=== PATIENT | male | born 1980 | race Caucasian/White ===

== ENCOUNTER 2017-12-17 20:22 | Emergency (ER) | payer OTHER ==
[2017-12-17 22:06] LABS: BASO # 0.1 10^3/uL (0.0-0.2); BASO % 0.5 % (0.0-1.0); EOS # 0.2 10^3/uL (0.0-0.50); EOS % 2.2 % (0.0-3.0); HEMATOCRIT 46.4 % (42.0-52.0); HEMOGLOBIN 15.5 g/dl (13.5-17.5); IMMATURE GRANULOCYTE % 0.3 % (0-3.0); LYMPH # 1.9 10^3/uL (1.5-4.5); MEAN CORPUSCULAR HGB CONC 33.4 g/dl (32.0-36.5); MEAN CORPUSCULAR VOLUME 95.7 fl (80.0-96.0); MONO # 0.8 10^3/uL (0.0-0.8); MONO % 8.3 % (0.0-5.0); NEUTROPHILS # 6.4 10^3/uL (1.8-7.7); NEUTROPHILS % 68.7 % (36.0-66.0); PLATELET COUNT, AUTOMATED 386 10^3/uL (150-450); RED BLOOD COUNT 4.85 10^6/uL (4.30-6.10); RED CELL DISTRIBUTION WIDTH 12.8 % (11.5-14.5); WHITE BLOOD COUNT 9.3 10^3/uL (4.0-10.0)
[2017-12-17] MEDS: ONDANSETRON 4MG/2ML VIAL (J2405) IV (22:11)
[2017-12-17] MEDS: NS 1,000 ML IV (22:11)
[2017-12-17] MEDS: MECLIZINE 25 MG TABLET PO (22:11)
[2017-12-17 22:27] LABS: ERYTHROCYTE SEDIMENTATION RATE 8 mm/hr (0-15)
[2017-12-17 22:29] LABS: ALBUMIN 3.8 GM/DL (3.2-5.2); ALBUMIN/GLOBULIN RATIO 0.79 (1.00-1.93); ALKALINE PHOSPHATASE 114 U/L (45-117); ALT/SGPT 35 U/L (12-78); ANION GAP 8 MEQ/L (8-16); AST/SGOT 16 U/L (7-37); BILIRUBIN,DIRECT 0.1 MG/DL (0.0-0.2); BILIRUBIN,TOTAL 0.4 MG/DL (0.2-1.0); BLOOD UREA NITROGEN 11 MG/DL (7-18); C REACTIVE PROTEIN QUANTITATIV 1.38 MG/DL (0.00-0.30); CALCIUM LEVEL 8.8 MG/DL (8.5-10.1); CARBON DIOXIDE LEVEL 28 MEQ/L (21-32); CHLORIDE LEVEL 104 MEQ/L (98-107); CREATININE FOR GFR 1.17 MG/DL (0.70-1.30); GLOMERULAR FILTRATION RATE > 60.0 (>60); GLUCOSE, FASTING 96 MG/DL (70-100); POTASSIUM SERUM 3.8 MEQ/L (3.5-5.1); SODIUM LEVEL 140 MEQ/L (136-145); TOTAL PROTEIN 8.6 GM/DL (6.4-8.2)
[2017-12-17] MEDS: AUGMENTIN 875 MG TAB PO (23:03)
[2017-12-17] MEDS: ACETAMINOPHEN 325 MG TAB PO (23:03)
== END 2017-12-17 23:27 | disposition home or self-care (01) ==
LOC: M ED 20:22
DX: H66.92 Otitis media, unspecified, left ear (principal); R42 Dizziness and giddiness; R51 Headache; G43.909 Migraine, unspecified, not intractable, without status migrainosus; K21.9 Gastro-esophageal reflux disease without esophagitis; Z72.0 Tobacco use; Z79.899 Other long term (current) drug therapy
CPT/HCPCS: J2405

== ENCOUNTER → 2018-03-27 | Outpatient (REF) | payer OTHER ==
[~2018-03-27] MED LIST: AUGM875T28 PO; MECL-68 PO; OMEP40CA2 PO; ZOFR4TAB14 PO
[2018-03-27 13:29] LABS: INFLUENZA A AMPLIFICATION POSITIVE (NEGATIVE); INFLUENZA B AMPLIFICATION NEGATIVE (NEGATIVE)
== END ==
LOC: M LAB REF 12:23
PROVIDERS: ATTEND Physician Assistant
DX: R68.89 Other general symptoms and signs (principal)

== ENCOUNTER → 2018-08-13 | Outpatient (REF) | payer OTHER ==
[2018-08-13 18:56] LABS: BASO % 0.5 % (0.0-1.0); EOS # 0.1 10^3/uL (0.0-0.50); EOS % 1.6 % (0.0-3.0); HEMATOCRIT 44.7 % (42.0-52.0); LYMPH # 1.7 10^3/uL (1.5-4.5); LYMPH % 27.2 % (24.0-44.0); MEAN CORPUSCULAR HEMOGLOBIN 32.2 pg (27.0-33.0); MEAN CORPUSCULAR HGB CONC 33.6 g/dl (32.0-36.5); MEAN CORPUSCULAR VOLUME 95.9 fl (80.0-96.0); MONO # 0.4 10^3/uL (0.0-0.8); NEUTROPHILS # 3.9 10^3/uL (1.8-7.7); NEUTROPHILS % 63.4 % (36.0-66.0); PLATELET COUNT, AUTOMATED 362 10^3/uL (150-450); RED BLOOD COUNT 4.66 10^6/uL (4.30-6.10); WHITE BLOOD COUNT 6.1 10^3/uL (4.0-10.0)
[2018-08-13 19:07] LABS: ALBUMIN 3.8 GM/DL (3.2-5.2); ALT/SGPT 28 U/L (12-78); BILIRUBIN,TOTAL 0.5 MG/DL (0.2-1.0); BLOOD UREA NITROGEN 12 MG/DL (7-18); CARBON DIOXIDE LEVEL 27 MEQ/L (21-32); CHLORIDE LEVEL 105 MEQ/L (98-107); CHOLESTEROL LEVEL 216 MG/DL (<200); CHOLESTEROL RISK RATIO 4.153 (<5); GLOMERULAR FILTRATION RATE > 60.0 (>60); GLUCOSE, FASTING 97 MG/DL (70-100); HDL CHOLESTEROL 52 MG/DL (>40); LDL CHOLESTEROL 142 MG/DL (<100); NON-HDL-C 164 MG/DL; POTASSIUM SERUM 4.2 MEQ/L (3.5-5.1); SODIUM LEVEL 138 MEQ/L (136-145); TRIGLYCERIDES LEVEL 109 MG/DL (<150)
== END ==
LOC: M LAB REF 17:01
PROVIDERS: ATTEND Family Medicine Addiction Medicine
DX: R42 Dizziness and giddiness (principal); F41.1 Generalized anxiety disorder; N48.1 Balanitis

== ENCOUNTER 2018-09-14 03:35 | Emergency (ER) | payer OTHER ==
[~2018-09-14] VITALS: Ht 170.2 cm; Wt 115.5 kg
[2018-09-14 03:35] VITALS: BP 132/85
[~2018-09-14 03:35] MED LIST changes: -MECL-68 PO; +MECL1TAB31 PO; -OMEP40CA2 PO; +OMEP40CA97 PO
[2018-09-14] MEDS ORDERED: OMEP-221 (03:49)
[2018-09-14] MEDS ORDERED: FLUORESCEIN OPHTH 1 MG STRIP OU ONE (04:45)
[2018-09-14] MEDS ORDERED: TETRACAINE 0.5% OPHTH SOLN 4ML OU ONE (04:45)
[2018-09-14] MEDS ORDERED: ERYT1OIN26 OD (05:07)
[2018-09-14] MEDS ORDERED: ERYTHROMYCIN OPHTH OINT OD ONE (05:15)
== END 2018-09-14 05:20 | disposition home or self-care (01) ==
LOC: M ED 03:35
DX: S05.01XA Injury of conjunctiva and corneal abrasion without foreign body, right eye, initial encounter (principal); X58.XXXA Exposure to other specified factors, initial encounter; Y92.89 Other specified places as the place of occurrence of the external cause; Z79.899 Other long term (current) drug therapy; Z88.8 Allergy status to other drugs, medicaments and biological substances; F17.210 Nicotine dependence, cigarettes, uncomplicated

== ENCOUNTER → 2018-11-13 | Outpatient (REF) | payer OTHER ==
[~2018-11-13] MED LIST changes: +ERYT1OIN26 OD; +MECL-68 PO; -MECL1TAB31 PO; +OMEP-221; +OMEP40CA2 PO; -OMEP40CA97 PO
[2018-11-13 21:51] LABS: BASO % 0.5 % (0.0-1.0); EOS # 0.1 10^3/uL (0.0-0.5); EOS % 1.2 % (0.0-3.0); HEMATOCRIT 46.4 % (42.0-52.0); HEMOGLOBIN 15.4 g/dl (13.5-17.5); LYMPH # 1.5 10^3/uL (1.5-5.0); LYMPH % 17.9 % (24.0-44.0); MEAN CORPUSCULAR HGB CONC 33.2 g/dl (32.0-36.5); MEAN CORPUSCULAR VOLUME 99.6 fl (80.0-96.0); MONO # 0.5 10^3/uL (0.0-0.8); MONO % 6.7 % (0.0-5.0); NEUTROPHILS # 5.9 10^3/uL (1.5-8.5); NEUTROPHILS % 73.3 % (36.0-66.0); PLATELET COUNT, AUTOMATED 363 10^3/uL (150-450); RED BLOOD COUNT 4.66 10^6/uL (4.30-6.10); WHITE BLOOD COUNT 8.1 10^3/uL (4.0-10.0)
[2018-11-13 22:13] LABS: HEMOGLOBIN A1c 4.8 %
[2018-11-13 22:19] LABS: ALBUMIN 3.9 GM/DL (3.2-5.2); ALT/SGPT 34 U/L (12-78); BILIRUBIN,TOTAL 0.3 MG/DL (0.2-1.0); BLOOD UREA NITROGEN 14 MG/DL (7-18); CALCIUM LEVEL 8.9 MG/DL (8.5-10.1); CARBON DIOXIDE LEVEL 25 MEQ/L (21-32); CHLORIDE LEVEL 103 MEQ/L (98-107); CREATININE FOR GFR 1.11 MG/DL (0.70-1.30); GLOMERULAR FILTRATION RATE > 60.0 (>60); GLUCOSE, FASTING 128 MG/DL (70-100); POTASSIUM SERUM 3.6 MEQ/L (3.5-5.1); SODIUM LEVEL 138 MEQ/L (136-145); TOTAL PROTEIN 7.9 GM/DL (6.4-8.2)
== END ==
LOC: M LAB REF 13:37
PROVIDERS: ATTEND Physician Assistant
DX: R30.0 Dysuria (principal); R53.1 Weakness; R42 Dizziness and giddiness

== ENCOUNTER → 2018-11-25 | Outpatient (REF) | payer OTHER ==
[~2018-11-25] MED LIST changes: -MECL-68 PO; +MECL1TAB31 PO; -OMEP40CA2 PO; +OMEP40CA97 PO
[2018-11-25 13:39] LABS: BASO # 0.1 10^3/uL (0.0-0.2); BASO % 0.7 % (0.0-1.0); EOS # 0.3 10^3/uL (0.0-0.5); EOS % 3.3 % (0.0-3.0); HEMATOCRIT 46.2 % (42.0-52.0); HEMOGLOBIN 15.5 g/dl (13.5-17.5); LYMPH % 26.6 % (24.0-44.0); MEAN CORPUSCULAR HEMOGLOBIN 32.7 pg (27.0-33.0); MEAN CORPUSCULAR HGB CONC 33.5 g/dl (32.0-36.5); MEAN CORPUSCULAR VOLUME 97.5 fl (80.0-96.0); MONO # 0.6 10^3/uL (0.0-0.8); MONO % 8.1 % (0.0-5.0); NEUTROPHILS # 4.7 10^3/uL (1.5-8.5); PLATELET COUNT, AUTOMATED 391 10^3/uL (150-450); RED BLOOD COUNT 4.74 10^6/uL (4.30-6.10); WHITE BLOOD COUNT 7.6 10^3/uL (4.0-10.0)
[2018-11-25 14:06] LABS: HEMOGLOBIN A1c 5.1 %
[2018-11-25 14:13] LABS: ALBUMIN 3.7 GM/DL (3.2-5.2); ALT/SGPT 35 U/L (12-78); BILIRUBIN,TOTAL 0.5 MG/DL (0.2-1.0); BLOOD UREA NITROGEN 13 MG/DL (7-18); CALCIUM LEVEL 8.9 MG/DL (8.5-10.1); CARBON DIOXIDE LEVEL 25 MEQ/L (21-32); CHLORIDE LEVEL 104 MEQ/L (98-107); CHOLESTEROL LEVEL 192 MG/DL (<200); CHOLESTEROL RISK RATIO 4.173 (<5); CREATININE FOR GFR 1.09 MG/DL (0.70-1.30); FREE T4 1.09 NG/DL (0.76-1.46); GLOMERULAR FILTRATION RATE > 60.0 (>60); GLUCOSE, FASTING 91 MG/DL (70-100); HDL CHOLESTEROL 46 MG/DL (>40); LDL CHOLESTEROL 120 MG/DL (<100); NON-HDL-C 146 MG/DL; POTASSIUM SERUM 3.8 MEQ/L (3.5-5.1); SODIUM LEVEL 139 MEQ/L (136-145); TOTAL 25(OH) VITAMIN D 13.1 NG/ML (30.0-100.0); TOTAL PROTEIN 7.5 GM/DL (6.4-8.2); TRIGLYCERIDES LEVEL 132 MG/DL (<150)
== END ==
LOC: M LAB REF 11:56
PROVIDERS: ATTEND Family Medicine
DX: Z13.228 Encounter for screening for other metabolic disorders (principal); E78.5 Hyperlipidemia, unspecified

== ENCOUNTER → 2019-01-10 | Outpatient (REF) | payer OTHER ==
[~2019-01-10] MED LIST changes: +MECL-68 PO; -MECL1TAB31 PO
[2019-01-10 17:17] LABS: ALBUMIN 3.6 GM/DL (3.2-5.2); ALT/SGPT 34 U/L (12-78); BILIRUBIN,TOTAL 0.5 MG/DL (0.2-1.0); BLOOD UREA NITROGEN 12 MG/DL (7-18); CALCIUM LEVEL 8.7 MG/DL (8.5-10.1); CARBON DIOXIDE LEVEL 27 MEQ/L (21-32); CHLORIDE LEVEL 104 MEQ/L (98-107); CHOLESTEROL LEVEL 218 MG/DL (<200); CHOLESTEROL RISK RATIO 4.113 (<5); CREATININE FOR GFR 1.14 MG/DL (0.70-1.30); FREE T4 1.07 NG/DL (0.76-1.46); GLOMERULAR FILTRATION RATE > 60.0 (>60); GLUCOSE, FASTING 133 MG/DL (70-100); HDL CHOLESTEROL 53 MG/DL (>40); LDL CHOLESTEROL 144 MG/DL (<100); NON-HDL-C 165 MG/DL; POTASSIUM SERUM 4.2 MEQ/L (3.5-5.1); SODIUM LEVEL 138 MEQ/L (136-145); TOTAL PROTEIN 7.5 GM/DL (6.4-8.2); TRIGLYCERIDES LEVEL 105 MG/DL (<150)
== END ==
LOC: M LAB REF 16:19
PROVIDERS: ATTEND Family Medicine
DX: E78.5 Hyperlipidemia, unspecified (principal); E03.8 Other specified hypothyroidism

== ENCOUNTER 2019-09-08 17:45 | Emergency (ER) | payer OTHER ==
[~2019-09-08] VITALS: Ht 170.2 cm; Wt 118.2 kg
[~2019-09-08 17:45] MED LIST changes: -ERYT1OIN26 OD; +ERYT5OIN25 OD; -MECL-68 PO; +MECL1TAB31 PO
[2019-09-08] MEDS ORDERED: LEVO50TA5 PO (18:13)
[2019-09-08 18:52] LABS: BASO % 0.4 % (0.0-1.0); EOS # 0.1 10^3/uL (0.0-0.5); EOS % 0.5 % (0.0-3.0); HEMATOCRIT 45.5 % (42.0-52.0); LYMPH # 0.9 10^3/uL (1.5-5.0); LYMPH % 8.5 % (24.0-44.0); MEAN CORPUSCULAR HEMOGLOBIN 31.9 pg (27.0-33.0); MEAN CORPUSCULAR VOLUME 96.8 fl (80.0-96.0); MONO # 0.8 10^3/uL (0.0-0.8); MONO % 7.5 % (0.0-5.0); NEUTROPHILS % 82.5 % (36.0-66.0); PLATELET COUNT, AUTOMATED 339 10^3/uL (150-450); WHITE BLOOD COUNT 10.9 10^3/uL (4.0-10.0)
--- NOTE | 2019-09-08 18:54 | REP ---
Portable chest x-ray: Single view. History: Chest pain. Findings: There is a small linear density in the left base consistent with plate-like atelectasis. Lung caba are otherwise clear. The pleural angles are sharp. Cardio mediastinal silhouette is unremarkable. Monitoring electrodes are seen. No bony abnormalities seen. Impression: Small zone linear plate-like atelectasis in the left base. Otherwise no active disease. Electronically Signed by Frandy Donovan MD 09/08/2019 06:46 P
[2019-09-08 19:02] LABS: INR 1.07; PROTHROMBIN TIME 13.6 SECONDS (11.8-14.0)
[2019-09-08 19:03] LABS: PARTIAL THROMBOPLASTIN TIME 27.4 SECONDS (25.0-38.4)
[2019-09-08 19:21] LABS: ALBUMIN 3.9 GM/DL (3.2-5.2); ALT/SGPT 59 U/L (12-78); BILIRUBIN,DIRECT 0.1 MG/DL (0.0-0.2); BILIRUBIN,TOTAL 0.3 MG/DL (0.2-1.0); BLOOD UREA NITROGEN 9 MG/DL (7-18); CALCIUM LEVEL 9.1 MG/DL (8.5-10.1); CARBON DIOXIDE LEVEL 29 MEQ/L (21-32); CHLORIDE LEVEL 105 MEQ/L (98-107); CREATININE FOR GFR 1.11 MG/DL (0.70-1.30); FREE T4 1.17 NG/DL (0.76-1.46); GLOMERULAR FILTRATION RATE > 60.0 (>60); GLUCOSE, FASTING 87 MG/DL (70-100); LIPASE 52 U/L (73-393); NT-PRO BNP 19 PG/ML (<125); POTASSIUM SERUM 4.2 MEQ/L (3.5-5.1); SODIUM LEVEL 137 MEQ/L (136-145); TOTAL PROTEIN 8.1 GM/DL (6.4-8.2)
[2019-09-08 19:30] LABS: D-DIMER QUANT < 270 ng/ml (<500)
[2019-09-08] MEDS ORDERED: GI COCKTAIL 50ML BTL(HYOSCYAMINE/MAALOX/LIDOCAINE VISCOUS)(1:3:1) PO ONE (21:15)
[2019-09-08] MEDS ORDERED: HEPARIN DRIP 25,000 UNITS in IV 1 EA IV SCH (22:38)
[2019-09-08] MEDS ORDERED: HEPARIN SOD (PORCINE) 5000UNITS/ML 1ML VIAL/SYRINGE IV ONE (22:45)
[2019-09-08] MEDS ORDERED: NITROGLYCERIN 0.4 MG SUBL TABLET SL PRN (22:45)
[2019-09-08] MEDS ORDERED: CLOPIDOGREL 300 MG TAB (PLAVIX) PO ONE (23:00)
[2019-09-08 23:34] LABS: CK-MB VALUE MASS < 1.0 NG/ML (<3.6); CPK CREATINE PHOSPHOKINASE 121 U/L (39-308); MB/CK RELATIVE INDEX 0.83 (< OR =4); TROPONIN I < 0.02 NG/ML (< 0.10)
[2019-09-09] MEDS ORDERED: METOPROLOL TART 25 MG TABLET PO ONE (00:15)
[2019-09-09 00:20] VITALS: BP 146/68
[2019-09-09 01:00] VITALS: BP 127/80
--- NOTE | 2019-09-09 07:57 | ECGEPIP ---
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
--- NOTE | 2019-09-09 08:00 | ECGEPIP ---
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
== END 2019-09-09 01:12 | disposition short-term general hospital (02) ==
LOC: M ED 17:45
DX: I21.4 Non-ST elevation (NSTEMI) myocardial infarction (principal); R94.31 Abnormal electrocardiogram [ECG] [EKG]; K21.9 Gastro-esophageal reflux disease without esophagitis; Z79.899 Other long term (current) drug therapy
CPT/HCPCS: 71045; 80048; 80076; 82550; 82553; 83690; 83880; 84439; 84443; 85025; 85379; 85610; 85730; 93005; 93041; 94760; 96365; 99285; J1644; U0002

== ENCOUNTER → 2019-09-22 | Outpatient (REF) | payer OTHER, MEDICAID ==
[~2019-09-22] MED LIST changes: +LEVO50TA5 PO
[2019-10-19 20:25] LABS: BASO % 0.6 % (0.0-1.0); EOS # 0.2 10^3/uL (0.0-0.5); EOS % 2.6 % (0.0-3.0); LYMPH % 30.5 % (24.0-44.0); MEAN CORPUSCULAR HEMOGLOBIN 31.6 pg (27.0-33.0); MEAN CORPUSCULAR HGB CONC 31.9 g/dl (32.0-36.5); MEAN CORPUSCULAR VOLUME 98.9 fl (80.0-96.0); MONO # 0.7 10^3/uL (0.0-0.8); MONO % 10.2 % (0.0-5.0); NEUTROPHILS # 3.7 10^3/uL (1.5-8.5); NEUTROPHILS % 55.8 % (36.0-66.0); PLATELET COUNT, AUTOMATED 393 10^3/uL (150-450); RED BLOOD COUNT 4.75 10^6/uL (4.30-6.10); WHITE BLOOD COUNT 6.6 10^3/uL (4.0-10.0)
[2019-11-01 21:42] LABS: ALBUMIN 3.8 GM/DL (3.2-5.2); ALT/SGPT 50 U/L (12-78); BILIRUBIN,TOTAL 0.5 MG/DL (0.2-1.0); BLOOD UREA NITROGEN 12 MG/DL (7-18); CALCIUM LEVEL 9.2 MG/DL (8.5-10.1); CARBON DIOXIDE LEVEL 30 MEQ/L (21-32); CHLORIDE LEVEL 106 MEQ/L (98-107); CREATININE FOR GFR 1.06 MG/DL (0.70-1.30); GLOMERULAR FILTRATION RATE > 60.0 (>60); GLUCOSE, FASTING 95 MG/DL (70-100); POTASSIUM SERUM 4.2 MEQ/L (3.5-5.1); SODIUM LEVEL 140 MEQ/L (136-145); TOTAL 25(OH) VITAMIN D 15.4 NG/ML (30.0-100.0); TOTAL PROTEIN 7.6 GM/DL (6.4-8.2)
== END ==
LOC: M LAB REF 08:55
PROVIDERS: ATTEND Physician Assistant
DX: J30.9 Allergic rhinitis, unspecified (principal); E03.8 Other specified hypothyroidism; E55.9 Vitamin D deficiency, unspecified; E78.5 Hyperlipidemia, unspecified

== ENCOUNTER 2020-02-26 21:25 | Emergency (ER) | payer MEDICAID, OTHER ==
[~2020-02-26] VITALS: Ht 170.2 cm; Wt 113.3 kg
[2020-02-26] MEDS ORDERED: ACETAMINOPHEN 325 MG TAB PO ONE (22:45)
--- NOTE | 2020-02-26 23:06 | REPVR ---
PROCEDURE INFORMATION: Exam: XR Chest, 1 View Exam date and time: 02/26/2020 10:34 PM Age: 39 years old Clinical indication: Cough; Additional info: Coronavirus workup TECHNIQUE: Imaging protocol: XR of the chest Views: 1 view. COMPARISON: ME PORTABLE CHEST X-RAY 09/08/2019 6:33 PM FINDINGS: Lungs: There is decreased inflation of the lungs. Mild bibasilar atelectasis and possible infiltrate which is slightly increased since the prior study. There is decreased delineation of the left hemidiaphragm. Pleural space: Question of minimal left pleural effusion. Heart/Mediastinum: The heart and mediastinum are unchanged. Bones/joints: Unremarkable. Soft tissues: There are moderately generous overlying soft tissues. IMPRESSION: 1. Poor inspiratory chest with mild bibasilar atelectasis and possible infiltrate which appears slightly increased since 09/08/2019. 2. Question of minimal left pleural effusion since the prior study. Electronically signed by: Gigi Lopez On 02/26/2020 23:06:47 PM
[2020-02-26 23:30] LABS: BASO % 0.3 % (0.0-1.0); HEMOGLOBIN 14.6 g/dl (13.5-17.5); LYMPH # 0.8 10^3/uL (1.5-5.0); LYMPH % 10.3 % (24.0-44.0); MEAN CORPUSCULAR HEMOGLOBIN 30.9 pg (27.0-33.0); MEAN CORPUSCULAR HGB CONC 32.4 g/dl (32.0-36.5); MEAN CORPUSCULAR VOLUME 95.1 fl (80.0-96.0); MONO # 0.5 10^3/uL (0.0-0.8); MONO % 6.2 % (0.0-5.0); NEUTROPHILS # 6.2 10^3/uL (1.5-8.5); NEUTROPHILS % 82.8 % (36.0-66.0); PLATELET COUNT, AUTOMATED 319 10^3/uL (150-450); RED BLOOD COUNT 4.73 10^6/uL (4.30-6.10); WHITE BLOOD COUNT 7.5 10^3/uL (4.0-10.0)
[2020-02-26 23:41] LABS: INR 1.1; PROTHROMBIN TIME 14.4 SECONDS (12.5-14.3)
[2020-02-26 23:42] LABS: PARTIAL THROMBOPLASTIN TIME 31.2 SECONDS (24.2-38.5)
[2020-02-26 23:44] LABS: D-DIMER QUANT 557.51 ng/ml (<500)
[2020-02-27 00:03] LABS: ALBUMIN 3.8 GM/DL (3.2-5.2); ALT/SGPT 75 U/L (12-78); BILIRUBIN,TOTAL 0.9 MG/DL (0.2-1.0); BLOOD UREA NITROGEN 7 MG/DL (7-18); CALCIUM LEVEL 8.4 MG/DL (8.5-10.1); CARBON DIOXIDE LEVEL 31 MEQ/L (21-32); CHLORIDE LEVEL 96 MEQ/L (98-107); CK-MB VALUE MASS < 1.0 NG/ML (<3.6); CPK CREATINE PHOSPHOKINASE 163 U/L (39-308); CREATININE FOR GFR 1.13 MG/DL (0.70-1.30); FERRITIN 601 NG/ML (26-388); GLOMERULAR FILTRATION RATE > 60.0 (>60); GLUCOSE, FASTING 97 MG/DL (70-100); LDH LACTATE DEHYDROGENASE 228 U/L (87-241); MAGNESIUM LEVEL 2.2 MG/DL (1.8-2.4); MB/CK RELATIVE INDEX 0.61 (< OR =4); POTASSIUM SERUM 3.6 MEQ/L (3.5-5.1); SODIUM LEVEL 132 MEQ/L (136-145); TOTAL PROTEIN 8.1 GM/DL (6.4-8.2); TROPONIN I < 0.02 NG/ML (< 0.10)
[2020-02-27] MEDS ORDERED: DICY10CA13 PO (00:26)
[2020-02-27] MEDS ORDERED: XALA0.007 OU (00:26)
[2020-02-27] MEDS ORDERED: NITR4TASL SL (00:26)
[2020-02-27] MEDS ORDERED: SYNT50TA PO (00:26)
[2020-02-27] MEDS ORDERED: ACUL0.5S OD (00:26)
[2020-02-27] MEDS ORDERED: PULSE OXIMETER XX (02:25)
[2020-02-27] MEDS ORDERED: PRED10TA2 PO (02:30)
--- NOTE | 2020-02-27 02:38 | ED PDOC ---
Post-Departure Follow-Up Patient was seen and assessed by Dr. Aguirre. The patient's pulse oximetry s tayed 90% or higher with exertion. He was offered treatment with monoclonal antibodies but refused. Discharge home on steroids was advised. The patient was advised to return to the ED for any concerns. Onel Colon M.D. Feb 27, 2020 02:38
[2020-02-27 02:46] VITALS: BP 137/78
--- NOTE | 2020-02-27 21:34 | ECGEPIP ---
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
== END 2020-02-27 03:00 | disposition home or self-care (01) ==
LOC: M ED 21:25 → CANBEDREQ 02-27 02:18 → M ED 02-27 03:00
DX: U07.1 COVID-19 (principal); K21.9 Gastro-esophageal reflux disease without esophagitis; E03.9 Hypothyroidism, unspecified; Z88.6 Allergy status to analgesic agent

== ENCOUNTER → 2020-05-12 | Outpatient (REF) | payer OTHER ==
[~2020-05-12] MED LIST changes: +ACUL0.5S OD; +DICY10CA13 PO; +NITR4TASL SL; +PRED10TA2 PO; +PULSE OXIMETER XX; +SYNT50TA PO; +XALA0.007 OU
[2020-05-12 16:17] LABS: BASO % 0.7 % (0.0-1.0); EOS # 0.2 10^3/uL (0.0-0.5); EOS % 3.3 % (0.0-3.0); HEMATOCRIT 48.4 % (42.0-52.0); HEMOGLOBIN 15.5 g/dl (13.5-17.5); LYMPH # 1.6 10^3/uL (1.5-5.0); LYMPH % 28.2 % (24.0-44.0); MEAN CORPUSCULAR HEMOGLOBIN 31.5 pg (27.0-33.0); MEAN CORPUSCULAR VOLUME 98.4 fl (80.0-96.0); MONO # 0.5 10^3/uL (0.0-0.8); MONO % 9.2 % (2.0-8.0); NEUTROPHILS # 3.3 10^3/uL (1.5-8.5); NEUTROPHILS % 58.1 % (36.0-66.0); PLATELET COUNT, AUTOMATED 352 10^3/uL (150-450); RED BLOOD COUNT 4.92 10^6/uL (4.30-6.10); WHITE BLOOD COUNT 5.8 10^3/uL (4.0-10.0)
[2020-05-12 16:43] LABS: ALT/SGPT 28 U/L (12-78); BILIRUBIN,TOTAL 0.4 MG/DL (0.2-1.0); BLOOD UREA NITROGEN 10 MG/DL (7-18); CALCIUM LEVEL 9.2 MG/DL (8.5-10.1); CARBON DIOXIDE LEVEL 29 MEQ/L (21-32); CHLORIDE LEVEL 104 MEQ/L (98-107); CHOLESTEROL LEVEL 235 MG/DL (<200); CHOLESTEROL RISK RATIO 4.272 (<5); CREATININE FOR GFR 0.93 MG/DL (0.70-1.30); GLOMERULAR FILTRATION RATE > 60.0 (>60); GLUCOSE, FASTING 89 MG/DL (70-100); HDL CHOLESTEROL 55 MG/DL (>40); LDL CHOLESTEROL 160 MG/DL (<100); NON-HDL-C 180 MG/DL; POTASSIUM SERUM 4.7 MEQ/L (3.5-5.1); SODIUM LEVEL 139 MEQ/L (136-145); TOTAL 25(OH) VITAMIN D 17.5 NG/ML (30.0-100.0); TOTAL PROTEIN 7.9 GM/DL (6.4-8.2); TRIGLYCERIDES LEVEL 99 MG/DL (<150)
== END ==
LOC: M LAB REF 15:42
PROVIDERS: ATTEND Physician Assistant
DX: E55.9 Vitamin D deficiency, unspecified (principal); E78.5 Hyperlipidemia, unspecified; E03.9 Hypothyroidism, unspecified

== ENCOUNTER → 2020-05-25 | Outpatient (REF) | payer OTHER ==
[2020-05-25 12:26] LABS: ALBUMIN 3.6 GM/DL (3.2-5.2); ALT/SGPT 25 U/L (12-78); BILIRUBIN,TOTAL 0.4 MG/DL (0.2-1.0); BLOOD UREA NITROGEN 13 MG/DL (7-18); CALCIUM LEVEL 9.1 MG/DL (8.5-10.1); CARBON DIOXIDE LEVEL 29 MEQ/L (21-32); CHLORIDE LEVEL 103 MEQ/L (98-107); CHOLESTEROL LEVEL 162 MG/DL (<200); CHOLESTEROL RISK RATIO 3.176 (<5); CREATININE FOR GFR 0.91 MG/DL (0.70-1.30); GLOMERULAR FILTRATION RATE > 60.0 (>60); GLUCOSE, FASTING 94 MG/DL (70-100); HDL CHOLESTEROL 51 MG/DL (>40); LDL CHOLESTEROL 92 MG/DL (<100); NON-HDL-C 111 MG/DL; POTASSIUM SERUM 3.9 MEQ/L (3.5-5.1); SODIUM LEVEL 139 MEQ/L (136-145); TOTAL PROTEIN 7.4 GM/DL (6.4-8.2); TRIGLYCERIDES LEVEL 94 MG/DL (<150)
== END ==
LOC: M LAB REF 11:12
PROVIDERS: ATTEND Physician Assistant
DX: E78.5 Hyperlipidemia, unspecified (principal); E55.9 Vitamin D deficiency, unspecified

== ENCOUNTER → 2020-08-30 | Outpatient (CLI) | payer OTHER ==
[~2020-08-30] MED LIST changes: +D31000TA2 PO; +EMER1PAK30 PO; +LOPI600T PO; -OMEP-221; +OMEP40CA4 PO; +OMEP40CA5; -OMEP40CA97 PO; +SUCR1TAB56 PO; +VITMTA PO
== END ==
LOC: M SLEEP 20:00
PROVIDERS: ATTEND Physician Assistant
DX: R40.0 Somnolence (principal)

== ENCOUNTER → 2020-09-07 | Outpatient (CLI) | payer OTHER ==
[~2020-09-07] MED LIST changes: -D31000TA2 PO; -EMER1PAK30 PO; -LOPI600T PO; +OMEP-221; -OMEP40CA5; -SUCR1TAB56 PO; -VITMTA PO
--- NOTE | 2020-09-07 09:40 | PFTRPT ---
Site: [facility], [address] [place] [address], [address] ID: [id number] Name: MILTON MARTINEZ Visit Date: 09/07/2020 Second ID: [id number] Referring Doctor: ROSA MARIA Ellis Marcus, M Reviewing Doctor: Chidi Hernandez MD Internship Coordinator: Violette TIJERINA RRT Age: 39 : 1980 Sex: Male Race: Height: 67.00 Inches Weight: 251.00 Lbs BSA: 2.23 Order IDs: [id number] Requested Test(s): <RESP-PFT.PFT B/A> Diagnosis: R06.00 test meet the ATS standards for acceptability and repeatability. Pt was given four puffs of albuterol for post bronchodilator. Review Status: Not Reviewed Pre-Bronch Post-Bronch Pred Actual %Pred Actual %Chng SPIROMETRY FVC (L) 4.75 3.41 71 3.55 4 FEV1 (L) 3.83 3.03 79 3.24 6 FEV1/FVC (%) 81 89 109 91 2 FEF 25% (L/sec) 8.56 7.88 92 6.71 -14 FEF 50% (L/sec) 6.00 5.93 98 5.53 -6 FEF 75% (L/sec) 2.02 1.87 92 3.13 66 FEF 25-75% (L/sec) 3.94 4.41 111 4.98 12 FEF Max (L/sec) 9.57 7.92 82 7.01 -11 FIVC (L) 3.57 3.72 4 FIF 50% (L/sec) 5.24 4.98 95 5.93 19 FIF Max (L/sec) 5.00 5.95 18 MVV (L/min) 155 102 65 Expiratory Time (sec) 6.75 6.98 3 Back Extrap Vol (L) 0.14 0.11 -20 Time To FEFmax (sec) 0.119 0.111 -6 LUNG VOLUMES SVC (L) 4.66 3.64 78 IC (L) 3.22 2.88 89 ERV (L) 1.44 0.76 53 TGV (L) 3.10 2.61 84 RV (Pleth) (L) 1.66 1.84 110 TLC (Pleth) (L) 6.32 5.48 86 RV/TLC (Pleth) (%) 26 34 129 DIFFUSION DLCOunc (ml/min/mmHg) 31.76 25.17 79 DLCOcor (ml/min/mmHg) 31.76 25.54 80 DL/VA (ml/min/mmHg/L) 5.03 5.19 103 VA (L) 6.32 4.92 77 BHT (sec) 10.12 IVC (L) 3.51 TLC (SB) (L) 5.07 AIRWAYS RESISTANCE Raw (cmH2O/L/s) 1.45 0.46 31 Gaw (L/s/cmH2O) 1.03 2.22 215 sRaw (cmH2O*s) 4.76 1.16 24 sGaw (1/cmH2O*s) 0.20 0.86 431 BLOOD GASES Hgb (gm/dL) 14.1
--- NOTE | 2020-09-07 12:05 | REP ---
INDICATION: DYSPNEA COMPARISON: 02/26/2020. TECHNIQUE: PA/Lateral FINDINGS: Lungs: Clear, no infiltrate. There is mild linear fibro atelectatic change in the left lung base. Heart: Normal in size. Mediastinum: Mediastinal silhouette unremarkable. Pleural angles: Unremarkable.. Bones and soft tissues: Unremarkable. IMPRESSION: No acute pulmonary disease. <Electronically signed by Nick Cullen > 09/07/20 1201
== END ==
LOC: M CARPUL 08:48
PROVIDERS: ATTEND Physician Assistant
DX: R06.00 Dyspnea, unspecified (principal)

== ENCOUNTER → 2020-11-02 | Outpatient (CLI) | payer OTHER ==
[~2020-11-02] MED LIST changes: +METHACHOLINE KIT (J7674) INH ONE
--- NOTE | 2020-11-02 15:48 | PFTRPT ---
Height: 67.00 Inches Weight: 251.00 Lbs BSA: 2.23 Diagnosis: R06.00 DATE: 11/02/2020 ORDERED BY: Brayan Ellis QUALITY: Study of excellent technical quality. PROCEDURE: Under protocol, methacholine was administered. At a dose of 10 mg or 63.875 CDUs, a 49% decline in the FEV1 was noted. PC of 3.25 is significant. Flow rates did return to baseline post bronchodilator administration. IMPRESSION: Positive methacholine challenge study. MTDD
== END ==
LOC: M CARPUL 14:58
PROVIDERS: ATTEND Physician Assistant
DX: R06.00 Dyspnea, unspecified (principal)
CPT/HCPCS: 94070; 95070; J7674

== ENCOUNTER → 2020-11-09 | Outpatient (CLI) | payer OTHER ==
[~2020-11-09] MED LIST changes: -METHACHOLINE KIT (J7674) INH ONE
--- NOTE | 2020-11-10 19:04 | SLEEPCENT ---
DATE: 11/09/2020 ORDERED BY: KHAI Myles Nocturnal polysomnography was performed for the titration of pressure therapy in this patient with obstructive sleep apnea syndrome, apnea-hypopnea index 28.1. For testing, a ResMed AirFit F20 full face mask of medium size was used, 4 cm of water pressure were applied to the circuit and the lights were extinguished. Eight hours and 24 minutes of data were reviewed. There were 205.5 minutes of sleep identified. Sleep latency was once again quite prolonged at 284.5 minutes. REM latency was short at 51 minutes. Sleep architecture once established was reasonably good. There were two REM cycles. Overall sleep efficiency was 41.1%. The electrocardiogram showed a sinus rhythm with an average heart rate of 70 beats per minute. EEG showed normal waveforms for wake and sleep. Respiratory events were palliated with CPAP at a pressure of +7. There was some minor limb activity noted at the point of sleep onset. Limb movement arousal index on this occasion was 3.8. IMPRESSIONS: 1. Obstructive sleep apnea syndrome (G47.33). 2. Possible sleep phase delay. RECOMMENDATION: Institution of CPAP at 7 cm of water should be sufficient to address the patient's obstructive respiratory events. Additional interventions may be necessary to address the patient's sleep phase delay. cc: Oleg Henry MD
== END ==
LOC: M SLEEP 20:00
PROVIDERS: ATTEND Physician Assistant
DX: G47.33 Obstructive sleep apnea (adult) (pediatric) (principal)

== ENCOUNTER → 2020-12-15 | Outpatient (CLI) | payer OTHER ==
[~2020-12-15] MED LIST changes: +D31000TA2 PO; +EMER1PAK30 PO; +LOPI600T PO; +SUCR1TAB56 PO; +VITMTA PO
== END ==
LOC: M LABSMTC 11:01
PROVIDERS: ATTEND Anesthesiology
DX: Z01.812 Encounter for preprocedural laboratory examination (principal); Z20.822 Contact with and (suspected) exposure to COVID-19

== ENCOUNTER 2020-12-20 12:54 | Day surgery (SDC) | payer OTHER ==
[~2020-12-20] VITALS: Ht 170.2 cm; Wt 114.3 kg
[~2020-12-20 12:54] MED LIST changes: +LIDOCAINE 2% 100MG/5ML SDV (FOR ANES.) As Ordered ONE; +NS 1,000 ML IV ONE; +fentaNYL 100 MCG/2 ML INJECTION (J3010) As Ordered ONE; +propofoL 200 MG/20 ML VIAL As Ordered ONE
--- OUTSIDE RECORDS SUMMARY | 2020-12-20 12:59 | CCD | Continuity of Care Document ---
Author Author Ten ELLIS Organization Unknown Address [address] [place] [address] Phone [phone] Care Team Providers Care Java Sybase Developer Name Role Phone Leonor Bella AUTM [phone] AUTM Unavailable Problems Active Problems Provider Date Obstructive sleep apnea syndrome KHAI Myles Onset: 09/27/2020 Social History Type Date Description Comments Sex Unknown ETOH Use 2-4 24 oz per day Tobacco Use Start: 02/19/91 End: 02/19/19 Patient is a forme r smoker 1 PPD HISTORY FOR 28 YEARS Smoking Status Reviewed: 09/27/20 Patient is a former smoker 1 PPD HISTORY FOR 28 YEARS Allergies, Adverse Reactions, Alerts Active Allergies Reaction Severity Comments Date NSAIDS Throat Closes and Itchy Throat 08/11/2020 Medications Active Medications SIG Qnty Indications Ordering Provide r Date Omeprazole 40mg Capsules DR 1 cap by mouth twice a day 90caps Unknown Dicyclomine HCL 10mg Capsules 1 cap by mouth three times a day 90caps Unknown 00 Levothyroxine Sodium 50mcg Capsule s 1 cap by mouth every day 60caps Unknown Vitamin D3 50mcg (1999 Ut) Capsule s 1 cap by mouth every day Unknown Albuterol Sulfate HFA 108(90Base) mcg/Act Aerosol Gini Santo, P.A.-C Qvar Redihaler 40mcg/Act Aerosol Inhale 2 Puffs By Mouth Two Times A Day Unknown 0 Albuterol Sulfate (2 .5mg/3ML) 0.083% Nebulizer Gini Santo P.A.-C Cetirizine HCL 10mg Tablets 1 by mouth every day Unknown Immunizations Description No Information Available Vital Signs Date Vital Result Comment 09/27/2020 9:22am BP Systolic 120 mmHg BP Diastolic 70 mmHg Heart Rate 79 /min O2 % BldC Oximetry 96 % Height 67 inches 5'7" Weight 254.50 lb BMI (Body Mass Index) 39.9 kg/m2 [place] Body Weight 148 lb Weight 115.441 kg BSA (Body Surface Area) 2.24 m2 08/11/2020 10:27am BP Systolic 118 mmHg BP Diastolic 80 mmHg Heart Rate 87 /min O2 % BldC Oximetry 98 % Body Temperature 97.7 F Height 67 inches 5'7" Weight 252.00 lb BMI (Body Mass Index) 39.5 kg/m2 [place] Body Weight 148 lb Neck Circumference in inches 18 Gordon Score 2 Weight 114.307 kg BSA (Body Surface Area) 2.23 m2 Results Test Acquired Date Facility Test Result H/L Range Note FVL/[place] 08/11/2020 [facility] SEE IMAGE FVC-Pred 4.82 L FVC-Pre 3.48 L FVC-%Pred-Pre 72 L FVC-LLN 3.97 L Fev1-Pred 3.87 L Fev1-Pre 3.05 L Fev1-%Pred-Pre 78 L Fev1-LLN 3.14 L Fev6-Pred 4.71 L Fev6-Pre 3.48 L Fev6-%Pred-Pre 73 L Fev6-LLN 3.88 L Ajx1vfq-Akem 80 % Fqn0uxn-Sqg 87 % Ebg9owa-%Pred-Pre 109 % Jsl0lkd-AJC 70 % Nxe6hdd-Bxdd 98 % Mwy2pwb-Uca 100 % Twz6cuj-%Pred-Pre 102 % FEFMax-Pred 9.53 L/E/sec FEFMax-Pre 6.44 L/E/sec FEFMax-%Pred-Pre 67 L/E/sec FEFMax-LLN 7.40 L/E/sec Wkv7052-Ginf 3.75 L/E/sec Rnf6798-Efz 4.40 L/E/sec Mwi4645-%Pred-Pre 117 L/E/sec Jlg5144-YYX 2.28 L/E/sec ExpTime-Pre 5.73 sec Ipe3oqe1-Pygl 82 % Uiq3lyl6-Ebe 87 % Hrl8qwe3-%Pred-Pre 106 % Jat6xqi3-IBR 73 % Procedures Date Code Description Status 09/27/2020 70227 Office/Outpatient Established Mo d MDM 30-39 Min Completed 08/11/2020 17427 Office/Outpatient New Moderate M DM 45-59 Minutes Completed 08/11/2020 63205 Spirometry Completed Medical Devices Description No Information Available Encounters Type Date Location Provider Dx Diagnosis Office Visit 09/27/2020 9:30a [facility] KHAI Myles R06.00 Dyspnea, unspecified G47.33 Obstructive sleep apnea (petrona lt) (pediatric) Z87.891 Personal history of nicotine dependence Office Visit 08/11/2020 10:30a [facility] KHAI Myles R06.00 Dyspnea, unspecified R40.0 Somnolence R06.83 Snoring Z87.891 Personal history of nicotine dependence Assessments Date Code Description Provider 09/27/2020 R06.00 Dyspnea, unspecified Bartolome Knap p, PA 09/27/2020 G47.33 Obstructive sleep apnea (adult) (pediatric) KHAI Myles 09/27/2020 Z87.891 Personal history of nicotine dep endence Bartolome Ellis, PA 08/11/2020 R06.00 Dyspnea, unspecified Bartolome Vickieap p, PA 08/11/2020 R40.0 Somnolence Bartolome Ellis PA 08/11/2020 R06.83 Snoring KHAI Myles 08/11/2020 Z87.891 Personal history of nicotine dep endence KHAI Myles Plan of Treatment Future Appointment(s):* 01/03/2021 12:30 pm - KHAI Myles at [facility] * 11/01/2020 7:45 pm - [facility] at [facility] * 10/27/2020 3:00 pm - KHAI Myles at [facility] * 10/12/2020 10:00 am - [facility] at [facility] * 11/17/2020 10:00 am - Evaristo Vogel M.D. at [facility] 09/27/2020 - KHAI Myles* R06.00 Dyspnea, unspecified * G47.33 Obstructive sleep apnea (adult) (pediatric) * Z87.891 Personal history of nicotine dependence * * New Labs:* Methacholine Study, Scheduled: 10/12/20 * Comments:* 1. Given a diagnosis of ALEXANDRA, the patient warrants a CPAP titration study.2. We discussed insurance guidelines for CPAP compliance and the patient was advised to call with any difficulties tolerating CPAP. * Follow up:* 1. Meth study 2. Follow up after Meth study 3. Follow up eight weeks after titration with a download to monitor compliance and tolerance of pressure therapy. Functional Status Description No Information Available Mental Status Description No Information Available Referrals Refer to Reason for Referral Status Appt Date [facility] Sleep Lab [address] Scheduled 08/30/2020 Sleep Lab [address] [place], [place] [address] [phone] Oleg Powell M.D. SNORING, SOB, HX COVID IN [place] Created [facility], Gastroenterology [address], [address] [place] [address] [phone] Oleg Powell M.D. K21.0 GERD with esophagitis, without bleedin g Scheduled 09/29/2020 [facility], Gastroenterology [address], [address] [place] [address] [phone] Bartolome Ellis, R.P.A.-C. SNORING, SOB, HX COVID Scheduled 08/11/2020 [facility] [address] [place], [place] [id number] [phone]
--- OUTSIDE RECORDS SUMMARY | 2020-12-20 12:59 | CCD | Continuity of Care Document ---
Author Author Ten DIETZ M.D. Organization Unknown Address [address], [address] [place] [address] Phone [phone] Care Team Providers Care Medical Clinic Manager Name Role Phone Leonor Bella AUTM [phone] AUTM Unavailable Problems Active Problems Provider Date Mild intermittent asthma KHAI Myles Onset: 11/09/19 Obstructive sleep apnea syndrome KHAI Myles Onset: 09/27/2020 Social History Type Date Description Comments Sex Unknown ETOH Use 4/d Tobacco Use Start: 02/19/91 End: 02/19/19 Patient is a forme r smoker 1 PPD HISTORY FOR 28 YEARS Smoking Status Reviewed: 11/08/20 Patient is a former smoker 1 PPD HISTORY FOR 28 YEARS Allergies, Adverse Reactions, Alerts Active Allergies Criticality Reaction | Severity Comments Date NSAIDS Unable to assess criticality Throat Closes and Itchy T hroat 08/11/2020 Medications Active Medications SIG Qnty Indications Ordering Provide r Date Metamucil 48.57% Powder 1 tablespoon by mouth 1 -2 times daily ( take after eating/ meals). 500ml R10.13 Evaristo Dietz M.D. 11/17/2020 Sucralfate 1GM/10ML Suspension 10 milliliters by mouth half an hour before meals, and at bedtime. (3 times daily) ( if not covered give tablets) 1260ml R10.13 Evaristo shields M.D. 11/17/2020 Airduo Respiclick 232/14 232-14mcg/Act Aerosol 1 puff twice a day 1units Michael Schmitt D.O. 11/08 Ventolin HFA 108(90Base) mcg/Act A erosol 2 puffs qid/prn 18gm Michael Schmitt D.O. 11/08/[address] 1 cap bid Unknown Dicyclomine HCL 10mg Capsules 1cap tid Unknown Levothyroxine Sodium 50mcg Capsule s 1cap qd Unknown Vitamin D3 50mcg (2000 Ut) Capsule s 1cap qd Unknown Albuterol Sulfate (2 .5mg/3ML) 0.083% Nebulizer Gini Santo P.A.-C Cetirizine HCL 10mg Tablets 1 tab qd Unknown Immunizations Description No Information Available Vital Signs Date Vital Result Comment 11/08/2020 9:16am BP Systolic 138 mmHg BP Diastolic 70 mmHg Heart Rate 81 /min O2 % BldC Oximetry 97 % Height 67 inches 5'7" Weight 259.00 lb BMI (Body Mass Index) 40.6 kg/m2 [place] Body Weight 148 lb Weight 117.482 kg BSA (Body Surface Area) 2.26 m2 09/27/2020 9:22am BP Systolic 120 mmHg BP Diastolic 70 mmHg Heart Rate 79 /min O2 % BldC Oximetry 96 % Height 67 inches 5'7" Weight 254.50 lb BMI (Body Mass Index) 39.9 kg/m2 [place] Body Weight 148 lb Weight 115.441 kg BSA (Body Surface Area) 2.24 m2 Results Test Acquired Date Facility Test Result H/L Range Note FVL/[place] 08/11/2020 [facility] SEE IMAGE FVC-Pred 4.82 L FVC-Pre 3.48 L FVC-%Pred-Pre 72 L FVC-LLN 3.97 L Fev1-Pred 3.87 L Fev1-Pre 3.05 L Fev1-%Pred-Pre 78 L Fev1-LLN 3.14 L Fev6-Pred 4.71 L Fev6-Pre 3.48 L Fev6-%Pred-Pre 73 L Fev6-LLN 3.88 L Uzs9vfr-Xqwi 80 % Wwn7dry-Udc 87 % Nqd8mnm-%Pred-Pre 109 % Doe0krk-VOS 70 % Fgc9zkc-Tusp 98 % Izj9sxa-Vzp 100 % Xbb8ame-%Pred-Pre 102 % FEFMax-Pred 9.53 L/E/sec FEFMax-Pre 6.44 L/E/sec FEFMax-%Pred-Pre 67 L/E/sec FEFMax-LLN 7.40 L/E/sec Miq5005-Ipft 3.75 L/E/sec Cbj0961-Cuf 4.40 L/E/sec Zoz2496-%Pred-Pre 117 L/E/sec Oex1523-BBC 2.28 L/E/sec ExpTime-Pre 5.73 sec Tjy9wef8-Zbqs 82 % Wrm6wqe1-Vgm 87 % Lae0ykd7-%Pred-Pre 106 % Puq0lrt7-EHX 73 % Procedures Date Code Description Status 11/08/2020 97566 Office/Outpatient Established Mo d MDM 30-39 Min Completed 09/27/2020 33075 Office/Outpatient Established Mo d MDM 30-39 Min Completed 08/11/2020 67396 Office/Outpatient New Moderate M DM 45-59 Minutes Completed 08/11/2020 52032 Spirometry Completed Medical Devices Description No Information Available Encounters Type Date Location Provider Dx Diagnosis Office Visit 11/08/2020 9:30a [facility] KHAI Myles J45.20 Mild intermittent asthma, uncomplicated G47.33 Obstructive sleep apnea (petrona lt) (pediatric) Z87.891 Personal history of nicotine dependence Office Visit 09/27/2020 9:30a [facility] KHAI Myles R06.00 Dyspnea, unspecified G47.33 Obstructive sleep apnea (petrona lt) (pediatric) Z87.891 Personal history of nicotine dependence Office Visit 08/11/2020 10:30a [facility] KHAI Myles R06.00 Dyspnea, unspecified R40.0 Somnolence R06.83 Snoring Z87.891 Personal history of nicotine dependence Assessments Date Code Description Provider 11/17/2020 R10.13 Epigastric pain Evaristo Fam ala, M.D. 11/17/2020 R11.2 Nausea with vomiting, unspecifie d Evaristo Dietz M.D. 11/17/2020 K58.0 Irritable bowel syndrome with di arrhea Evaristo Dietz M.D. 11/08/2020 J45.20 Mild intermittent asthma, uncomp licated Bartolome Ellis, KHAI 11/08/2020 G47.33 Obstructive sleep apnea (adult) (pediatric) KHAI Myles 11/08/2020 Z87.891 Personal history of nicotine dep endence Bartolome Ellis, KHAI 09/27/2020 R06.00 Dyspnea, unspecified Bartolome Johnstonap p, PA 09/27/2020 G47.33 Obstructive sleep apnea (adult) (pediatric) KHAI Myles 09/27/2020 Z87.891 Personal history of nicotine dep endence Bartolome Ellis, KHAI 08/11/2020 R06.00 Dyspnea, unspecified Bartolome Johnstonap p, PA 08/11/2020 R40.0 Somnolence Bartolome Ellis, KHAI 08/11/2020 R06.83 Snoring KHAI Myles 08/11/2020 Z87.891 Personal history of nicotine dep endence KHAI Myles Plan of Treatment Future Appointment(s):* 01/03/2021 12:30 pm - KHAI Myles at [facility] Pulmonary/Thoracic 11/17/2020 - Evaristo Dietz M.D.* R10.13 Epigastric pain * R11.2 Nausea with vomiting, unspecified * K58.0 Irritable bowel syndrome with diarrhea * * New Medication:* Metamucil 48.57 % * Sucralfate 1 GM/10ML * New Orders:* Endoscopy, Ordered: 11/17/20 * Comments:* Impression:-- Persistent nausea and intermittent vomiting and inability to tolerate oral diet with globus sensation in throat -- DDx -- Esophagitis vs GERD vs Esophageal motility disorder vs Zenkers diverticulum vs PUD.-- Epigastric and right upper quadrant pain -- DDx- Dyspepsia vs Gall stones. Less likely PUD. * Recommendations:* -- Educated patient about all possible differential diagnosis and all questions answered. -- Will start on sucralfatge inaddition to omeprazole. Educated on the timing of the medication. Omeprazole 40 mg daily -- to be taking crocheter on empty stomach for total of 8 weeks. -- Also educated on anti-reflux measures and printed material provided. -- FOr IBS-- to continue Dicyclomine and to add Psyllium / metamucil for now. -- Will schedule for EGD - especially in view of persistent symptoms and globus sensation. The procedure, indications, risks (bleeding, perforation, infection, hypotension, respiratory depression, allergy, need for endotracheal intubation, surgery, or even ), benefits, limitations, and all other alternatives (including no intervention) were explained to the patient who understood and agreed for the procedure. -- Return to GI clinic 2 weeks after above. -- Follow up with PMD for routine medical care and other age jie ropriate health maintenance. Functional Status Description No Information Available Mental Status Description No Information Available Referrals Refer to Reason for Referral Status Appt Date [facility] Sleep Lab [address] Closed 11/09/[address] [place] [phone] [facility] Sleep Lab [address] Closed 08/30/[address] [place], [place] [id number] [phone] Oleg Powell M.D. SNORING, SOB, HX COVID IN FEB Created [facility], Gastroenterology [address] [place] [address], [address] [place] [phone] Oleg Powell M.D. K21.0 GERD with esophagitis, without bleedin g Scheduled 09/29/2020 [facility], Gastroenterology [address] [place] [address], [address] [place] [phone] Bartolome Ellis R.P.A.-C. SNORING, SOB, HX COVID Scheduled 08/11/2020 [facility] [address] [place] [id number] [phone]
--- OUTSIDE RECORDS SUMMARY | 2020-12-20 12:59 | CCD | Continuity of Care Document ---
Author Author Ten DIETZ M.D. Organization Unknown Address [address] [facility], [address] [place] [address] Phone [phone] Care Team Providers Care Tool Design Drafter Name Role Phone Leonor Bella AUTM [phone] AUTM Unavailable Problems Active Problems Provider Date Mild intermittent asthma Cassie Myles Onset: 11/09/19 Obstructive sleep apnea syndrome Cassie Myles Onset: 09/27/2020 Social History Type Date Description Comments Sex Unknown ETOH Use 4/d Tobacco Use Start: 02/19/91 End: 02/19/19 Patient is a forme r smoker 1 PPD HISTORY FOR 28 YEARS Smoking Status Reviewed: 11/08/20 Patient is a former smoker 1 PPD HISTORY FOR 28 YEARS Allergies and adverse reactions Active Allergies Criticality Reaction | Severity Comments Date NSAIDS Unable to assess criticality Throat Closes and Itchy T hroat 08/11/2020 Medications Active Medications SIG Qnty Indications Ordering Provide r Date CPAP Device 7cm lcw Michael Schmitt D.O. 11/18/2020 Metamucil 48.57% Powder 1 tablespoon by mouth 1 -2 times daily ( take after eating/ meals). 500ml R10.13 Evaristo Dietz M.D. 11/17/2020 Sucralfate 1GM/10ML Suspension 10 milliliters by mouth half an hour before meals, and at bedtime. (3 times daily) ( if not covered give tablets) 1260ml R10.13 Evaristo shields M.D. 11/17/2020 Airduo Respiclick 232/14 232-14mcg/Act Aerosol 1 puff twice a day 1units Elaine GreenfieldOElio 11/08 Ventolin HFA 108(90Base) mcg/Act A erosol 2 puffs qid/prn 18gm Michael Schmitt D.O. 11/08/[address] 1 cap bid Unknown Dicyclomine HCL 10mg Capsules 1cap tid Unknown Levothyroxine Sodium 50mcg Capsule s 1cap qd Unknown Vitamin D3 50mcg (2000 Ut) Capsule s 1cap qd Unknown Albuterol Sulfate (2 .5mg/3ML) 0.083% Nebulizer Gini Santo P.AMaria eFrnanda Cetirizine HCL 10mg Tablets 1 tab qd Unknown Immunizations Description No Information Available Vital Signs Date Vital Result Comment 11/17/2020 10:59am BP Systolic 128 mmHg BP Diastolic 70 mmHg Height 67 inches 5'7" Weight 257.00 lb BMI (Body Mass Index) 40.2 kg/m2 [place] Body Weight 148 lb Weight 116.575 kg BSA (Body Surface Area) 2.25 m2 11/08/2020 9:16am BP Systolic 138 mmHg BP Diastolic 70 mmHg Heart Rate 81 /min O2 % BldC Oximetry 97 % Height 67 inches 5'7" Weight 259.00 lb BMI (Body Mass Index) 40.6 kg/m2 [place] Body Weight 148 lb Weight 117.482 kg BSA (Body Surface Area) 2.26 m2 Results Test Acquired Date Facility Test Result H/L Range Note FVL/Mutual 08/11/2020 [employer] PDFReport SEE IMAGE FVC-Pred 4.82 L FVC-Pre 3.48 L FVC-%Pred-Pre 72 L FVC-LLN 3.97 L Fev1-Pred 3.87 L Fev1-Pre 3.05 L Fev1-%Pred-Pre 78 L Fev1-LLN 3.14 L Fev6-Pred 4.71 L Fev6-Pre 3.48 L Fev6-%Pred-Pre 73 L Fev6-LLN 3.88 L Dle4szf-Jyrz 80 % Dlk0rte-Mkv 87 % Hiw6ohu-%Pred-Pre 109 % Fhg8flh-AIM 70 % Csh3rnm-Iymd 98 % Sep5vyk-Nlw 100 % Pnh9mpi-%Pred-Pre 102 % FEFMax-Pred 9.53 L/E/sec FEFMax-Pre 6.44 L/E/sec FEFMax-%Pred-Pre 67 L/E/sec FEFMax-LLN 7.40 L/E/sec Mrh3860-Dekj 3.75 L/E/sec Fae0086-Iid 4.40 L/E/sec Qhy3910-%Pred-Pre 117 L/E/sec Gow7784-RTF 2.28 L/E/sec ExpTime-Pre 5.73 sec Rwl0yvs4-Nsld 82 % Rqh0jyp5-Dwo 87 % Whl5bpt4-%Pred-Pre 106 % Kfd5uti7-TDO 73 % Procedures Date Code Description Status 11/17/2020 12828 Office/Outpatient New Moderate M DM 45-59 Minutes Completed 11/08/2020 59091 Office/Outpatient Established Mo d MDM 30-39 Min Completed 09/27/2020 97400 Office/Outpatient Established Mo d MDM 30-39 Min Completed 08/11/2020 04517 Office/Outpatient New Moderate M DM 45-59 Minutes Completed 08/11/2020 19173 Spirometry Completed Medical Devices Description No Information Available Encounters Type Date Location Provider Dx Diagnosis Office Visit 11/17/2020 10:00a [facility] Gastroenterology Foster Dietz M.D. R10.13 Epigastric pain R11.2 Nausea with vomiting, unspec ified K58.0 Irritable bowel syndrome wit h diarrhea Office Visit 11/08/2020 9:30a [facility] Bartolome Ellis, P.A. J45.20 Mild intermittent asthma, uncomplicated G47.33 Obstructive sleep apnea (petrona lt) (pediatric) Z87.891 Personal history of nicotine dependence Office Visit 09/27/2020 9:30a [facility] Bartolome Ellis, P.A. R06.00 Dyspnea, unspecified G47.33 Obstructive sleep apnea (petrona lt) (pediatric) Z87.891 Personal history of nicotine dependence Office Visit 08/11/2020 10:30a [facility] Bartolome Ellis, P.A. R06.00 Dyspnea, unspecified R40.0 Somnolence R06.83 Snoring Z87.891 Personal history of nicotine dependence Assessments Date Code Description Provider 11/17/2020 R10.13 Epigastric pain Evaristo Fam ala, M.D. 11/17/2020 R11.2 Nausea with vomiting, unspecifie d Evaristo Dietz M.D. 11/17/2020 K58.0 Irritable bowel syndrome with di arrhea Evaristo Dietz M.D. 11/08/2020 J45.20 Mild intermittent asthma, uncomp licated Bartolome Ellis, P.A. 11/08/2020 G47.33 Obstructive sleep apnea (adult) (pediatric) Bartolome Ellis, P.A. 11/08/2020 Z87.891 Personal history of nicotine dep endence Bartolome Ellis, P.A. 09/27/2020 R06.00 Dyspnea, unspecified Bartolome Knap p, P.A. 09/27/2020 G47.33 Obstructive sleep apnea (adult) (pediatric) Bartolome Ellis, P.A. 09/27/2020 Z87.891 Personal history of nicotine dep endence Bartolome Rhonda, P.A. 08/11/2020 R06.00 Dyspnea, unspecified Bartolome Knap p, P.A. 08/11/2020 R40.0 Somnolence Bartolome Ellis, P. A. 08/11/2020 R06.83 Snoring Bartolome Ellis, P. A. 08/11/2020 Z87.891 Personal history of nicotine dep endence Bartolome Rhonda, P.A. Plan of Treatment Future Appointment(s):* 02/10/2021 11:40 am - Evaristo Dietz M.D. at [facility] Gastroenterology Practice * 12/20/2020 2:15 pm - Evaristo Dietz M.D. at [facility] Gastroenterology Practice * 01/03/2021 12:30 pm - Cassie Myles at [facility] Pulmonary/Thoracic 11/08/2020 - Bartolome Ellis P.A.* J45.20 Mild intermittent asthma, uncomplicated * G47.33 Obstructive sleep apnea (adult) (pediatric) * Z87.891 Personal history of nicotine dependence * * New Labs:* FVL/Alexandro, Ordered: 11/08/20 * Follow up:* 1. Follow up as scheduled after titration study. Alexandro to be done at that time Functional Status Description No Information Available Mental Status Description No Information Available Referrals Refer to Dr Reason for Referral Status Appt Date [facility] Sleep Lab 77265 Closed 11/09/2020 Sleep Lab [address] [place], [place] [id number] [phone] [facility] Sleep Lab 656[address] Closed 08/30/2020 Sleep Lab [address] [place], [place] [id number] [phone] Oleg Powell M.D. SNORING, SOB, HX COVID IN Feb/0000 [facility], Gastroenterology [address] [facility], [address] [place] [address] [phone] Bartolome Ellis, R.P.A.-C. SNORING, SOB, HX COVID Closed 08/11/2020 [facility] [address] [place], [place] [id number] [phone]
--- OUTSIDE RECORDS SUMMARY | 2020-12-20 12:59 | CCD | Continuity of Care Document ---
Author Author Ten ELLIS Organization Unknown Address [address] [place] [address] Phone [phone] Care Team Providers Care Packager Hand Name Role Phone Leonor Bella AUTM [phone] AUTM Unavailable Problems Active Problems Provider Date [...] SIG Qnty Indications Ordering Provide r Date Airduo Respiclick 232/14 232-14mcg/Act Aerosol 1 puff twice a day 1units Michael Schmitt D.OElio 11/08 Ventolin HFA 108(90Base) mcg/Act A erosol 2 puffs qid/prn 18gm Loree Greenfield.OElio 11/08/[address] 1 cap [...] 9:16am BP Systolic 138 mmHg BP Diastolic 709 mmHg Heart Rate 81 /min O2 % BldC Oximetry 97 % Height 67 inches 5'7" Weight 259.00 lb BMI (Body Mass Index) 40.6 kg/m2 [place] Body Weight 148 lb Weight 117.482 kg BSA (Body Surface Area) 2.26 m2 09/27/2020 9:22am BP Systolic 120 mmHg BP Diastolic 70 mmHg Heart Rate 79 /min O2 % BldC Oximetry 96 % Height 67 inches 5'7" Weight 254.50 lb BMI (Body Mass Index) 39.9 kg/m2 [place] Body Weight 148 lb Weight 115.441 kg [...] L Fev6-%Pred-Pre 73 L Fev6-LLN 3.88 L Cqe3tcx-Kaic 80 % Cmo2mho-Bku 87 % Cbb3ocz-%Pred-Pre 109 % Hno8boh-AKM 70 % Yji0cxx-Xrja 98 % Qck8nam-Dvm 100 % Nua6pec-%Pred-Pre 102 % FEFMax-Pred 9.53 L/E/sec FEFMax-Pre 6.44 L/E/sec FEFMax-%Pred-Pre 67 L/E/sec FEFMax-LLN 7.40 L/E/sec Fwg5215-Arvp 3.75 L/E/sec Jci9070-Yvl 4.40 L/E/sec Pwd1358-%Pred-Pre 117 L/E/sec Icf6503-KVM 2.28 L/E/sec ExpTime-Pre 5.73 sec Dnf1igx7-Fdvz 82 % Xmd6jpu7-Mnu 87 % Scn5wso9-%Pred-Pre 106 % Adj0mze4-FEO 73 % Procedures Date Code Description Status 09/27/2020 23079 Office/Outpatient Established Mo d MDM 30-39 Min Completed 08/11/2020 38009 Office/Outpatient New Moderate M DM 45-59 Minutes Completed 08/11/2020 93946 Spirometry Completed Medical Devices Description No Information Available Encounters Type Date Location Provider Dx Diagnosis Office Visit 09/27/2020 9:30a [facility] KHAI Myles R06.00 Dyspnea, unspecified G47.33 Obstructive sleep apnea (petrona lt) (pediatric) Z87.891 Personal history of nicotine dependence Office Visit 08/11/2020 10:30a [facility] KHAI Myles R06.00 Dyspnea, unspecified R40.0 Somnolence R06.83 Snoring Z87.891 Personal history of nicotine dependence Assessments Date Code Description Provider 11/08/2020 J45.20 Mild intermittent asthma, uncomp licated Bartolome Rhonda, PA 11/08/2020 G47.33 Obstructive sleep apnea (adult) (pediatric) Bartolome Ellis, PA 11/08/2020 Z87.891 Personal history of nicotine dep endence Bartolome Ellis, PA 09/27/2020 R06.00 Dyspnea, unspecified Bartolome Knap p, PA 09/27/2020 G47.33 Obstructive sleep apnea (adult) (pediatric) Bartolome Ellis PA 09/27/2020 Z87.891 Personal history of nicotine dep endence Bartolome Ellis, PA 08/11/2020 R06.00 Dyspnea, unspecified Bartolome Knap p, PA 08/11/2020 R40.0 Somnolence Bartolome Rhonda, PA 08/11/2020 R06.83 Snoring Bartolome Rhonda, PA 08/11/2020 Z87.891 Personal history of nicotine dep endence Bartolome Ellis PA Plan of Treatment Future Appointment(s):* 11/09/2020 7:45 pm - [facility] * 01/03/2021 12:30 pm - KHAI Myles at [facility] * 11/17/2020 10:00 am - Evaristo Vogel M.D. at [facility] 11/08/2020 - KHAI Myles* J45.20 Mild intermittent asthma, uncomplicated * G47.33 Obstructive sleep apnea (adult) (pediatric) * Z87.891 Personal history of nicotine dependence * * New Labs:* FVL/[place], Ordered: 11/08/20 * Follow up:* 1. Follow up as scheduled after titration study. Alexandro to be done at that time Functional Status Description No Information Available Mental Status Description No Information Available Referrals Refer to Dr Reason for Referral Status Appt Date [facility] Sleep Lab 77843 Closed 11/09/2020 Sleep Lab [address] [place], [place] [phone] [facility] Lab [address] Closed 08/30/2020 Sleep Lab [address] [place] [id number] [phone] Oleg Powell M.D. SNORING, SOB, HX COVID IN [place] Created [facility], Gastroenterology [address] [place] [address], [address] [place], [place] [id number] [phone] Oleg Powell M.D. K21.0 GERD with esophagitis, without bleedin g Scheduled 09/29/2020 [facility], Gastroenterology [address] [facility], [address] [place], [place] [id number] [phone] Bartolome Ellis, R.P.A.-C. SNORING, SOB, HX COVID Scheduled 08/11/2020 [facility]-Pulmonary [address] [place], [place] [address] [phone]
--- OUTSIDE RECORDS SUMMARY | 2020-12-20 12:59 | CCD | Continuity of Care Document ---
Author Author Ten ELLIS Organization Unknown Address [address] [place] [address] Phone [phone] Care Team Providers Care Urology Surgeon Name Role Phone Leonor Bella AUTM [phone] AUTM Unavailable Problems Active Problems Provider Date [...] lb BMI (Body Mass Index) 40.6 kg/m2 [place] Body Weight 148 lb Weight 117.482 kg BSA (Body Surface Area) 2.26 m2 09/27/2020 9:22am BP Systolic 120 mmHg BP Diastolic 70 mmHg Heart Rate 79 /min O2 % BldC Oximetry 96 % Height 67 inches 5'7" Weight 254.50 lb BMI (Body Mass Index) 39.9 kg/m2 [place] Body Weight 148 lb Weight 115.441 kg [...] L Fev6-%Pred-Pre 73 L Fev6-LLN 3.88 L Lqh0wxq-Htzk 80 % Fjy5pzr-Lsv 87 % Vot3zjd-%Pred-Pre 109 % Iwn5jye-ZHD 70 % Rcy2ugu-Ibzc 98 % Vbx5orj-Jvy 100 % Pqz7yxs-%Pred-Pre 102 % FEFMax-Pred 9.53 L/E/sec FEFMax-Pre 6.44 L/E/sec FEFMax-%Pred-Pre 67 L/E/sec FEFMax-LLN 7.40 L/E/sec Bml3668-Ibxk 3.75 L/E/sec Drq2494-Myv 4.40 L/E/sec Uhn6808-%Pred-Pre 117 L/E/sec Fxn0315-RJE 2.28 L/E/sec ExpTime-Pre 5.73 sec Bce9htc6-Ftmv 82 % Yvu8rqz1-Aoc 87 % Bxa0ktd4-%Pred-Pre 106 % Hqc8nuj6-CPT 73 % Procedures Date Code Description Status 11/08/2020 48001 Office/Outpatient Established Mo d MDM 30-39 Min Completed 09/27/2020 27122 Office/Outpatient Established Mo d MDM 30-39 Min Completed 08/11/2020 03711 Office/Outpatient New Moderate M DM 45-59 Minutes Completed 08/11/2020 15571 Spirometry Completed Medical Devices Description No Information [...] J45.20 Mild intermittent asthma, uncomp licated Bartolome Ellis PA 11/08/2020 G47.33 Obstructive sleep apnea (adult) (pediatric) KHAI Myles 11/08/2020 Z87.891 Personal history of nicotine dep endence Bartolome Rhonda, PA 09/27/2020 R06.00 Dyspnea, unspecified Bartolome Knap p, PA 09/27/2020 G47.33 Obstructive sleep apnea (adult) (pediatric) Bartolome Ellis PA 09/27/2020 Z87.891 Personal history of nicotine dep endence Bartolome Rhonda, PA 08/11/2020 R06.00 Dyspnea, unspecified Bartolome Knap p, PA 08/11/2020 R40.0 Somnolence BartolomeKHAI Carter 08/11/2020 R06.83 Snoring KHAI Myles 08/11/2020 Z87.891 Personal history of nicotine dep endence KHAI Myles Plan of Treatment Future Appointment(s):* 01/03/2021 12:30 pm - KHAI Myles at [facility] Pulmonary/Thoracic * 11/17/2020 10:00 am - Evaristo Vogel M.D. at [facility] Gastroenterology Practice 11/08/2020 - KHAI Myles* J45.20 Mild intermittent asthma, uncomplicated * G47.33 Obstructive sleep apnea (adult) (pediatric) * Z87.891 Personal history of nicotine dependence * * New Labs:* FVL/[place], Ordered: 11/08/20 * Follow up:* 1. Follow up as scheduled after titration study. [place] to be done at that time Functional Status Description No Information Available Mental Status Description No Information Available Referrals Refer to Dr Reason for Referral Status Appt Date [facility] Sleep Lab [address] Closed 11/09/2020 Sleep Lab [address] [place] [address] [phone] [facility] Sleep Lab [address] Closed 08/30/[address] [place] [address] [phone] Oleg Powell M.D. SNORING, SOB, HX COVID IN FEB Created [facility], Gastroenterology [address] [place] [address], [address] [place] [address] [phone] Oleg Powell M.D. K21.0 GERD with esophagitis, without bleedin g Scheduled 09/29/2020 [facility], Gastroenterology [address] [place] [address], [address] [place] [address] [phone] Bartolome Ellis R.P.A.-C. SNORING, SOB, HX COVID Scheduled 08/11/2020 [facility] [address] [place], [place] [address] [phone]
--- OUTSIDE RECORDS SUMMARY | 2020-12-20 12:59 | CCD ---
Author Organization Unknown Address [address] [place] [id number] Phone [phone] Care Team Providers Care Hand Painter Name Role Phone Manolo Carney Unavailable Unavailable Allergies Code Code System Name Reaction Severity Status Onset Aspirin Active 02/04/2018 63961 RxNorm Atorvastatin Other Moderate Active 07/24/19 21 4719 RxNorm Gemfibrozil Dizziness Moderate to Severe Active 11/20/19 21 5640 RxNorm Ibuprofen Active Notes: Some allergies listed in Document s: #[id number], #[id number] could not be added to this patient's chart. Please review these documents and add these allergies to the patient's chart manually as needed. Medications Name Status Start Date Stop Date albuterol sulfate 2.5 mg/3 mL (0.083 %) solution for nebulizatio n Active Not available albuterol sulfate HFA 90 mcg/actuation a erosol inhaler INHALE TWO PUFFS BY MOUTH FOUR TIMES A DAY NEEDED Active Not available amoxicillin 875 mg tablet TAKE ONE TABLET BY MOUTH EVERY 12 HOURS FOR 10 DAYS Completed 11/02/2020 atorvastatin 10 mg tablet TAKE ONE TABLET BY MOUTH EVERY DAY Completed 07/16/202007/21 azithromycin 250 mg tablet TAKE TWO TABLETS BY MOUTH AT ONCE ON THE FIRST DAY THEN TAKE ONE DAILY THEREAFTER Completed 12/25/2019 Breo Ellipta One INH once daily. Completed 03/10/2020 cetirizine 10 mg tablet TAKE ONE TABLET BY MOUTH ONCE DAILY Active Not available cholecalciferol (vitamin D3) 50 mcg (2,0 00 unit) capsule TAKE ONE CAPSULE BY MOUTH DAILY WITH DINNER Active Not available dicyclomine 10 mg capsule TAKE ONE CAPSULE BY MOUTH UP TO THREE TIMES A DAY Active Not available fluticasone 232 mcg-salmeterol 14 mcg/ac tuation breath activated powdr INHALE ONE PUFF BY MOUTH TWICE A DAY Active No t available folic acid 1 mg tablet TAKE ONE TABLET BY MOUTH EVERY DAY Completed 07/21 gemfibrozil 600 mg tablet TAKE ONE TABLET BY MOUTH ONCE DAILY Completed 02/2020 ketorolac 0.5 % eye drops INSTILL ONE DROP INTO RIGHT EYE FOUR TIMES A DAY DIRECTED Active Not available latanoprost 0.005 % eye drops Active No t available levothyroxine 50 mcg capsule Completed levothyroxine 50 mcg tablet Active Not available Men Under 50 Multivitamin OTC once daily Active Not available nitroglycerin 0.[address] 1 TABLET UNDER THE TONGUE EVERY 5 MINUTES NEEDED FOR CHEST PAIN Active Not available omeprazole 40 mg capsule,delayed release TAKE ONE CAPSULE BY MOUTH TWICE A DAY Active N ot available oseltamivir 75 mg capsule Completed 2020 prednisone 10 mg tablet TAKE 6 TABLETS BY MOUTH DAILY FOR 3 DAYS THEN 5 TABLETS DAILY X 2 DAYS 4 TABLETS DAILY X 2 DAYS 3 TABLETS DAILY X 2 DAYS 2 TABLETS DAILY Completed 05/19/2020 Qvar RediHaler 40 mcg/actuation HFA breath activated aerosol Act nguyen Not available sucralfate 1 gram tablet Active Not carmela ilable Vitamin C once daily immune support OTC Active Not avail able vitamin d3 50 mcg (1999 ut) caps Active Not available Problems Name Status Onset Date Source Generalized Anxiety Disorder Active 03/05/2018 Adjustment Disorder with Anxious Mood Active 03/11/2018 Gastro-esophageal Reflux Disease with Esophagitis Active 09/02/2018 Chronic Cluster Headache Active 11/15/2018 Gastric Ulcer Active 11/15/2018 Hyperlipidemia Active 11/25/2018 Endocrine/metabolic Screening Unknown 11/25/2018 Hypothyroidism Active 12/02/2018 Vitamin D Deficiency Active 12/02/2018 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 Allergic Rhinitis Active 05/16/2019 Chest Pain Active 09/18/2019 Irritable Bowel Syndrome Active 10/13/2019 Influenza Vaccine Needed Unknown 10/13/[address] Concept Unknown 10/13/2019 Finding of Head Region Unknown 10/13/2019 History Covid-19 Unknown 03/10/2020 Procedures Date Name Performed by 05/19/2020 Electrocardiogram [facility] [address] [place] [address] (Work Place) Results Lab Results Date Name Specimen Result Interpretation Description Value Range Status Address 10/26/2020 Lipid Panel, Serum Blood venous High Yolanda sterol, Total 219 mg/dL <200 mg/dL Final [facility]: [address] [facility] Blood venous Normal HDL Cholesterol 54 mg/dL > or = 40 mg/dL Final [facility]: [address] [facility] Blood venous Normal Triglycerides 114 mg/dL <150 mg/dL Final [facility]: [address] [facility] Blood venous High LDL-cholesterol 142 mg/dL (ca lc) Final [facility]: [address] [facility] Blood venous Normal Chol/hdlc Ratio 4.1 (calc) <5 .0 (calc) Final [facility]: [address] [facility] Blood venous High Non HDL Cholesterol 165 mg/dL (calc) <130 mg/dL (calc) Final [facility]: [address] [facility] 10/26/2020 CMP, Serum or Plasma Blood venous Normal Glucose 96 mg/dL 65-99 mg/dL Final [facility]: [address] [facility] Blood venous Normal Urea Nitrogen (BUN) 16 mg/dL 7-25 mg/dL Final [facility]: [address] [facility] Blood venous Normal Creatinine 1.05 mg/dL 0.60-1. 35 mg/dL [facility]: [address] [facility] Blood venous Normal eGFR Non-afr. Nauruan 8 8 mL/min/1.73m2 > or = 60 mL/min/1.73m2 Final [facility]: [address] [facility] Blood venous Normal eGFR 10 2 mL/min/1.73m2 > or = 60 mL/min/1.73m2 Final [facility]: [address] [facility] Blood venous BUN/creatinine Ratio not applicable (calc) 6-22 (calc) [facility]: [address] [facility] Blood venous Normal Sodium 140 mmol/L 135-146 mmo l/L Final [facility]: [address] [facility] Blood venous Normal Potassium 4.3 mmol/L 3.5-5.3 mmol/L Final [facility]: [address] [facility] Blood venous Normal Chloride 103 mmol/L 98-110 mm ol/L Final [facility]: [address] [facility] [place] Blood venous Normal Carbon Dioxide 31 mmol/L 20-3 2 mmol/L [facility]: [address] [facility] Blood venous Normal Calcium 9.2 mg/dL 8.6-10.3 mg /dL [facility]: [address] [facility] Blood venous Normal Protein, Total 7.5 g/dL 6.1-8 .1 g/dL [facility]: [address] [facility] [place] Blood venous Normal Albumin 4.3 g/dL 3.6-5.1 g/dL [facility]: [address] [facility] Blood venous Normal Globulin 3.2 g/dL (calc) 1.9- 3.7 g/dL (calc) [facility]: [address] [facility] [place] Blood venous Normal Albumin/globulin Ratio 1 .3 (calc) 1.0-2.5 (calc) [facility]: [address] [facility] Blood venous Normal Bilirubin, Total 0.6 mg/dL 0. 2-1.2 mg/dL [facility]: [address] [place] Blood venous Normal Alkaline Phosphatase 108 U/L 36-130 U/L [facility]: [address] [facility] Blood venous Normal Ast 15 U/L 10-40 U/L [facility]: [address] [facility] [place] Blood venous Normal Alt 20 U/L 9-46 U/L Final [facility]: [address] [facility] 10/26/2020 Cbc Blood venous Normal White Blood Cell Count 6.4 thousand/uL 3.8-10.8 thousand/uL Final [facility] gh: [address] [facility] Blood venous Normal Red Blood Cell Count 4.8 4 million/uL 4.20-5.80 million/uL Final [facility] gh: [address] [facility] Blood venous Normal Hemoglobin 15.0 g/dL 13.2-17. 1 g/dL [facility]: [address] [facility] Blood venous Normal Hematocrit 45.3 % 38.5-50.0 % [facility]: [address] [facility] Blood venous Normal Mcv 93.6 fL 80.0-100.0 fL Fi nal [facility]: [address] [facility] Blood venous Normal Mch 31.0 pg 27.0-33.0 pg Fin al [facility]: [address] [facility] Blood venous Normal Mchc 33.1 g/dL 32.0-36.0 g/dL Final [facility]: [address] [facility] Blood venous Normal Rdw 12.2 % 11.0-15.0 % Final [facility]: [address] [facility] Blood venous Normal Platelet Count 341 thous and/uL 140-400 thousand/uL Final [facility]: [address] [facility] Blood venous Normal Mpv 11.7 fL 7.5-12.5 fL Yakelin l [facility]: [address] [facility] 10/26/2020 Tsh Blood venous High Tsh 4.80 mIU/L 0.40-4.50 mIU/L Final [facility]: [address] [facility] 10/26/2020 Vitamin D, 25-Hydroxy, Total, Serum Blood venous Low Vitamin D,25-Oh,total,ia 24 NG/mL 30-100 NG/mL Final [facility]: [address] [facility] 07/26/2020 Lipid Panel, Serum Blood venous Normal Yolanda sterol, Total 192 mg/dL <200 mg/dL Final [facility]: [address] [facility] Blood venous Normal HDL Cholesterol 49 mg/dL > or = 40 mg/dL Final [facility]: [address] [facility] Blood venous Normal Triglycerides 127 mg/dL <150 mg/dL [facility]: [address] [facility] Blood venous High LDL-cholesterol 119 mg/dL (ca lc) [facility]: [address] [facility] Blood venous Normal Chol/hdlc Ratio 3.9 (calc) <5 .0 (calc) [facility]: [address] [facility] Blood venous High Non HDL Cholesterol 143 mg/dL (calc) <130 mg/dL (calc) [facility] [address] [facility] 07/26/2020 CMP, Serum or Plasma Blood venous Normal Glucose 91 mg/dL 65-99 mg/dL Final [facility]: [address] [facility] Blood venous Normal Urea Nitrogen (BUN) 15 mg/dL 7-25 mg/dL [facility]: [address] [facility] Blood venous Normal Creatinine 0.93 mg/dL 0.60-1. 35 mg/dL [facility]: [address] [facility] Blood venous Normal eGFR Non-afr. Nauruan 1 03 mL/min/1.73m2 > or = 60 mL/min/1.73m2 Final [facility]: [address] [facility] Blood venous Normal eGFR 11 9 mL/min/1.73m2 > or = 60 mL/min/1.73m2 Final [facility]: [address] [facility] Blood venous BUN/creatinine Ratio not applicable (calc) 6-22 (calc) [facility] [address] [facility] [facility] Blood venous Normal Sodium 140 mmol/L 135-146 mmo l/L [facility]: [address] [facility] Blood venous Normal Potassium 4.1 mmol/L 3.5-5.3 mmol/L [facility]: [address] [facility] Blood venous Normal Chloride 101 mmol/L 98-110 mm ol/L [facility]: [address] [facility] Blood venous Normal Carbon Dioxide 30 mmol/L 20-3 2 mmol/L [facility]: [address] [facility] Blood venous Normal Calcium 9.2 mg/dL 8.6-10.3 mg /dL [facility]: [address] [facility] Blood venous Normal Protein, Total 7.2 g/dL 6.1-8 .1 g/dL [facility]: [address] [facility] Blood venous Normal Albumin 4.1 g/dL 3.6-5.1 g/dL [facility]: [address] [facility] Blood venous Normal Globulin 3.1 g/dL (calc) 1.9- 3.7 g/dL (calc) [facility]: [address] [facility] Blood venous Normal Albumin/globulin Ratio 1 .3 (calc) 1.0-2.5 (calc) Final [facility]: [address] [facility] [facility] Blood venous Normal Bilirubin, Total 0.7 mg/dL 0. 2-1.2 mg/dL Final [facility]: [address] [facility] Blood venous Normal Alkaline Phosphatase 101 U/L 36-130 U/L [facility]: [address] [facility] Blood venous Normal Ast 13 U/L 10-40 U/L [facility]: [address] [facility] Blood venous Normal Alt 17 U/L 9-46 U/L Final [facility]: [address] [facility] 07/26/2020 Cbc Blood venous Normal White Blood Cell Count 6.7 thousand/uL 3.8-10.8 thousand/uL [facility]: [address] [facility] Blood venous Normal Red Blood Cell Count 4.6 1 million/uL 4.20-5.80 million/uL Final [facility]: [address] [facility] Blood venous Normal Hemoglobin 14.6 g/dL 13.2-17. 1 g/dL [facility]: [address] [facility] Blood venous Normal Hematocrit 43.9 % 38.5-50.0 % [facility]: [address] [facility] Blood venous Normal Mcv 95.2 fL 80.0-100.0 fL Fi nal [facility]: [address] [facility] Blood venous Normal Mch 31.7 pg 27.0-33.0 pg Fin al [facility]: [address] [facility] Blood venous Normal Mchc 33.3 g/dL 32.0-36.0 g/dL [facility]: [address] [facility] Blood venous Normal Rdw 12.4 % 11.0-15.0 % [facility]: [address] [facility] Blood venous Normal Platelet Count 330 thous and/uL 140-400 thousand/uL [facility]: [address] [facility] Blood venous Normal Mpv 11.5 fL 7.5-12.5 fL Yakelin l [facility]: [address] [facility] 07/26/2020 TSH, Serum or Plasma Blood venous Normal TSH W/reflex to FT4 2.28 mIU/L 0.40-4.50 mIU/L Final [facility]: [address] [place] 07/26/2020 Vitamin D, 25-Hydroxy, Total, Serum Blood venous Low Vitamin D,25-Oh,total,ia 23 NG/mL 30-100 NG/mL [facility] [address] [place] 05/25/2020 Lipid Panel, Serum Blood venous No observation recorded. [facility] (Lab): [address] [place] [address] 05/25/2020 CMP, Serum or Plasma Blood venous Normal Glu cose, Fasting 94 mg/dL 70-100 mg/dL [facility] nter: [address] [place] [address] Blood venous Normal Blood Urea Nitrogen 13 mg/dL 7-18 mg/dL [facility]: [address] [place] [address] Blood venous Normal Creatinine for GFR 0.91 mg/dL 0.70-1.30 mg/dL [facility]: [address] [place] [address] Blood venous Normal Glomerular Filtration Rate > 60.0 >60 [facility]: [address] [place] [address] Blood venous Normal Sodium Level 139 mEq/L 136-14 5 mEq/L [facility]: [address] [place] [address] Blood venous Normal Potassium Serum 3.9 mEq/L 3.5 -5.1 mEq/L [facility]: [address] [place] [address] Blood venous Normal Chloride Level 103 mEq/L 98-1 07 mEq/L [facility]: [address] [place] [address] Blood venous Normal Carbon Dioxide Level 29 mEq/L 21-32 mEq/L [facility]: [address] [place] [address] Blood venous Low Anion Gap 7 mEq/L 8-16 mEq/L [facility]: [address] [place] [address] Blood venous Normal Calcium Level 9.1 mg/dL 8.5-1 0.1 mg/dL [facility]: [address] [place] [address] Blood venous Normal AST/SGOT 12 U/L 7-37 U/L Yakelin l [facility]: [address] [place], [place] [id number] Blood venous Normal ALT/SGPT 25 U/L 12-78 U/L [facility]: [address] [facility] Blood venous Normal Alkaline Phosphatase 107 U/L 45-117 U/L [facility]: [address] [facility] Blood venous Normal Bilirubin,total 0.4 mg/dL 0.2 -1.0 mg/dL [facility]: [address] [facility] Blood venous Normal Total Protein 7.4 gm/dL 6.4-8 .2 gm/dL [facility]: [address] [facility] Blood venous Normal Albumin 3.6 gm/dL 3.2-5.2 gm/ dL [facility]: [address] [facility] Blood venous Normal Albumin/globulin Ratio 0.9 [facility]: [address] [facility] 05/25/2020 Lipid Panel, Blood Normal Triglycerides Lev el 94 mg/dL <150 mg/dL [facility]: [address] [facility] Normal Cholesterol Level 162 mg/dL <200 mg/ dL [facility]: [address] [facility] Normal HDL Cholesterol 51 mg/dL >40 mg/dL [facility]: [address] [facility] Normal LDL Cholesterol 92 mg/dL <100 mg/dL [facility]: [address] [facility] Normal Non-hdl-c 111 mg/dL [facility]: [address] [facility] Normal Cholesterol Risk Ratio 3.176 <5 [facility]: [address] [facility] 05/25/2020 Vitamin D, 25-Hydroxy, Total, Serum Blood venous Low Total 25(Oh) Vitamin D 17.0 NG/mL 30.0-100.0 NG/mL [facility]: [address] [facility] 05/12/2020 CBC W/ Auto Diff Blood venous Normal White Blood C ount 5.8 10 4.0-10.0 10 [facility]: [address] [facility] Blood venous Normal Red Blood Count 4.92 10 4.30- 6.10 10 [facility]: [address] [place] [address] Blood venous Normal Hemoglobin 15.5 g/dL 13.5-17. 5 g/dL [facility]: [address] [place] [address] Blood venous Normal Hematocrit 48.4 % 42.0-52.0 % [facility]: [address] [place] [address] Blood venous High Mean Corpuscular Volume 98.4 fL 80.0-96.0 fL [facility]: [address] [place] [address] Blood venous Normal Mean Corpuscular Hemoglob in 31.5 pg 27.0-33.0 pg [facility]: [address] [place] [address] Blood venous Normal Mean Corpuscular HGB Conc 32.0 g/dL 32.0-36.5 g/dL [facility]: [address] [place] [address] Blood venous Normal Red Cell Distribution Wid th 12.9 % 11.5-14.5 % [facility]: [address] [place] [address] Blood venous Normal Platelet Count, Automated 352 10 150-450 10 [facility]: [address] [place] [address] Blood venous Normal Neutrophils % 58.1 % 36.0-66. 0 % [facility]: [address] [place] [address] Blood venous Normal Lymph % 28.2 % 24.0-44.0 % [facility]: [address] [place] [address] Blood venous High [place] % 9.2 % 2.0-8.0 % [facility]: [address] [place] [address] Blood venous High Eos % 3.3 % 0.0-3.0 % [facility]: [address] [place] [address] Blood venous Normal Baso % 0.7 % 0.0-1.0 % [facility]: [address] [place] [address] Blood venous Normal Immature Granulocyte % 0.5 % 0-3.0 % [facility]: [address] [place] [address] Blood venous Normal Nucleated Red Blood Cell % 0. 0 % 0-0 % [facility]: [address] [place] [address] Blood venous Normal Neutrophils # 3.3 10 1.5-8.5 10 [facility]: [address] [place] [address] Blood venous Normal Lymph # 1.6 10 1.5-5.0 10 [facility]: [address] [place] [address] Blood venous Normal [place] # 0.5 10 0.0-0.[address] [facility]: [address] [place] [address] Blood venous Normal Eos # 0.2 10 0.0-0.5 10 [facility]: [address] [place] [address] Blood venous Normal Baso # 0.0 10 0.0-0.[address] [facility]: [address] [place] [address] 05/12/2020 CMP, Serum or Plasma Blood venous Normal Glu cose, Fasting 89 mg/dL 70-100 mg/dL [facility] nter: [address] [place] [address] Blood venous Normal Blood Urea Nitrogen 10 mg/dL 7-18 mg/dL [facility]: [address] [place] [address] Blood venous Normal Creatinine for GFR 0.93 mg/dL 0.70-1.30 mg/dL [facility]: [address] [place] [address] Blood venous Normal Glomerular Filtration Rate > 60.0 >60 [facility]: [address] [place] [address] Blood venous Normal Sodium Level 139 mEq/L 136-14 5 mEq/L [facility]: [address] [place] [address] Blood venous Normal Potassium Serum 4.7 mEq/L 3.5 -5.1 mEq/L [facility]: [address] [place] [address] Blood venous Normal Chloride Level 104 mEq/L 98-1 07 mEq/L [facility]: [address] [place] [address] Blood venous Normal Carbon Dioxide Level 29 mEq/L 21-32 mEq/L [facility]: [address] [place] [address] Blood venous Low Anion Gap 6 mEq/L 8-16 mEq/L [facility]: [address] [place] [address] Blood venous Normal Calcium Level 9.2 mg/dL 8.5-1 0.1 mg/dL [facility]: [address] [facility] Blood venous Normal AST/SGOT 13 U/L 7-37 U/L Yakelin l [facility]: [address] [facility] Blood venous Normal ALT/SGPT 28 U/L 12-78 U/L [facility]: [address] [facility] Blood venous Normal Alkaline Phosphatase 110 U/L 45-117 U/L [facility]: [address] [facility] Blood venous Normal Bilirubin,total 0.4 mg/dL 0.2 -1.0 mg/dL [facility]: [address] [facility] Blood venous Normal Total Protein 7.9 gm/dL 6.4-8 .2 gm/dL [facility]: [address] [facility] Blood venous Normal Albumin 4.0 gm/dL 3.2-5.2 gm/ dL [facility]: [address] [facility] Blood venous Normal Albumin/globulin Ratio 1.0 [facility]: [address] [facility] 05/12/2020 Lipid Panel, Blood Normal Triglycerides Lev el 99 mg/dL <150 mg/dL [facility]: [address] [facility] High Cholesterol Level 235 mg/dL <200 mg/ dL [facility]: [address] [facility] Normal HDL Cholesterol 55 mg/dL >40 mg/dL F inal [facility]: [address] [facility] High LDL Cholesterol 160 mg/dL <100 mg/dL [facility]: [address] [facility] Normal Non-hdl-c 180 mg/dL [facility]: [address] [facility] Normal Cholesterol Risk Ratio 4.272 <5 [facility]: [address] [facility] 05/12/2020 TSH, Serum or Plasma Blood venous Normal Thyroid Stimulating Hormone 2.260 uIU/mL 0.358-3.740 uIU/mL [facility] ical Center: [address] [facility] 05/12/2020 Vitamin D, 25-Hydroxy, Total, Serum Blood venous Low Total 25(Oh) Vitamin D 17.5 NG/mL 30.0-100.0 NG/mL Final [facility] Center: [address] [facility] Past Encounters 12/14/2020 Hypothyroidism; Hyperlipidemia Manolo D Rommel RPA-C: [address] [facility], [facility] [address], [place] [address], Ph. 11/02/2020 Patient Informed - Test Result; Irritable Bowel Syndrome; Gastro-esophageal Reflux Disease with Esophagitis; Hypothyroidism; Hyperlipidemia; Counseling; Vitamin D Deficiency Manolo Ralph Rommel RPA-C: [address] [facility] [address], [place] [address], Ph. 10/26/2020 Hypothyroidism; Gastro-esophageal Reflux Disease with Esophagitis; Vitamin D Deficiency; Hyperlipidemia Manolo Carney RPA-C: [address] [facility] [address], [place] [address], Ph. 08/10/2020 Patient Informed - Test Result; Hyperlipidemia; Irritable Bowel Syndrome; Gastro-esophageal Reflux Disease with Esophagitis; Vitamin D Deficiency; Allergic Rhinitis; Hypothyroidism Manolo Loree Rommel RPA-C: [address] [facility], [facility] [address], [place] [address], Ph. 07/26/2020 Hyperlipidemia; Hypothyroidism; Vitamin D Deficiency Manolo Carney RPA-C: [address] [facility] [address], [place] [address], Ph. 06/07/2020 Gastro-esophageal Reflux Disease with Esophagitis; Hyperlipidemia; Vitamin D Deficiency; Chest Pain; Dyspnea Leonor Bella RPA-C: [address] [facility] [address], [place] [address], Ph. 05/25/2020 Thom Alvarado MD: [address] [place] [address], Ph. 05/19/2020 Chest Pain; Gastro-esophageal Reflux Disease with Esophagitis; Generalized Anxiety Disorder; Hyperlipidemia; Hypothyroidism; Irritable Bowel Syndrome; Vitamin D Deficiency; Snoring Symptoms; Dyspnea on Exertion ROSA MARIA Cedillo: [address] , [facility] [address], [place] [address], Ph. 05/12/2020 Hypothyroidism; Vitamin D Deficiency; Hyperlipidemia ROSA MARIA Cedillo: [address] , [facility] [address], [place] [address], Ph. 03/10/2020 Covid-19 Thom Alvarado MD: [address] , [facility] [address], [place] [address], Ph. Social History Tobacco Smoking Status Never Smoker Vaccine List None recorded. Plan of Care Patient Instructions WE DISCUSSED, YOUR REFERRALS HAVE BEE N PROCESSED. YOU SHOULD BE RECEIVING A CALL FROM THE SPECIALISTS TO SCHEUDLE YOUR APPOINTMENTS. IF YOU DEVELOP CHEST PAIN, DIZZINESS, FAINTNESS, JAW PAIN, PAIN RADIATING DOWN YOUR ARM OR SHORTNESS OF BREATH IN THE MEANTIME GO DIRECTLY TO THE ER. WE DISCUSSED, WE WILL REFILL YOUR QVA R AND REFER YOU TO PULMONARY FOR YOUR SHORTNESS OF BREATH AND SNORING. WE WILL SEE YOU IN THE OFFICE FOR AN EKG AND BLOOD PRESSURE AND REFER YOU TO CARDIOLOGY. YOU SHOULD GO TO THE ER FOR ANY CHEST PAIN, PAIN INTO YOUR ARMS WITH EXERTION, FAINTNESS, SHORTNESS OF BREATH. WE WILL REFER YOU TO GI FOR YOUR UNCONTROLLED HEARTBURN AND START YOU ON VIT D AND ATORVASTATIN FOR YOUR CHOLESTEROL. Reminders Provider Appointments None recorded. Lab None recorded. Referral None recorded. Procedures None recorded. Surgeries None recorded. Imaging None recorded. Vitals 08/10/2020 09:50AM TELEHEALTH 20 Height 68.4 in 06/07/2020 09:10AM TELEHEALTH 20 Height 68.4 in 05/25/2020 08:20AM NURSE Height Blood Pressure 68.4 in 134/85 mm[Hg] 05/19/2020 10:30AM TELEHEALTH 20 Height 68.4 in 03/10/2020 11:40AM TELEHEALTH 20 Height 68.4 in 10/13/2019 Height Weight BMI Blood Pressure 68.4 in 254 lbs 6.4 oz 38.37 kg/m2 113/75 mm[Hg ] 09/18/2019 Height Weight BMI Blood Pressure 68.4 in 252 lbs 8 oz 38.08 kg/m2 109/74 mm[Hg] 05/16/2019 Height Weight BMI Blood Pressure 68.4 in 266 lbs 40.12 kg/m2 114/81 mm[Hg] 12/02/2018 Height Weight BMI Blood Pressure 68.4 in 253 lbs 38.16 kg/m2 132/87 mm[Hg] 11/15/2018 Height Weight BMI Blood Pressure 68.4 in 253 lbs 6.08 oz 38.21 kg/m2 125/88 mm[H g] 09/02/2018 Height Weight BMI Blood Pressure 68.4 in 256 lbs 4 oz 38.65 kg/m2 124/80 mm[Hg] 03/05/2018 Height Weight BMI Blood Pressure 68.4 in 251 lbs 3.2 oz 37.89 kg/m2 119/76 mm[Hg ]
--- OUTSIDE RECORDS SUMMARY | 2020-12-20 12:59 | CCD | Continuity of Care Document ---
Author Author Ten ELLIS Organization Unknown Address [address] [place] [address] Phone [phone] Care Team Providers Care Lab Courier Name Role Phone Leonor Bella AUTM [phone] AUTM Unavailable Problems Active Problems Provider Date [...] lb BMI (Body Mass Index) 39.9 kg/m2 [place] Body Weight 148 lb Weight 115.441 kg BSA (Body Surface Area) 2.24 m2 08/11/2020 10:27am BP Systolic 118 mmHg BP Diastolic 80 mmHg Heart Rate 87 /min O2 % BldC Oximetry 98 % Body Temperature 97.7 F Height 67 inches 5'7" Weight 252.00 lb BMI (Body Mass Index) 39.5 kg/m2 [place] Body Weight 148 lb Neck Circumference in inches 18 Armstrong Score 2 Weight 114.307 kg BSA (Body Surface Area) 2.23 m2 Results Test Acquired Date Facility Test Result H/L Range Note [facility]/[place] 08/11/2020 [facility] PDFReport SEE IMAGE FVC-Pred 4.82 L FVC-Pre 3.48 L FVC-%Pred-Pre 72 L FVC-LLN 3.97 L Fev1-Pred 3.87 L Fev1-Pre 3.05 L Fev1-%Pred-Pre 78 L Fev1-LLN 3.14 L Fev6-Pred 4.71 L Fev6-Pre 3.48 L Fev6-%Pred-Pre 73 L Fev6-LLN 3.88 L Hpn5syj-Lqha 80 % Wlu1tpz-Yir 87 % Tjn8ffz-%Pred-Pre 109 % Ohw8huo-SAR 70 % Xnf1awp-Jaig 98 % Vdk3izd-Fqr 100 % Rvh4ypq-%Pred-Pre 102 % FEFMax-Pred 9.53 L/E/sec FEFMax-Pre 6.44 L/E/sec FEFMax-%Pred-Pre 67 L/E/sec FEFMax-LLN 7.40 L/E/sec Tpj0222-Zuzu 3.75 L/E/sec Eoj2427-Ouy 4.40 L/E/sec Afg3112-%Pred-Pre 117 L/E/sec Ygw8496-BPT 2.28 L/E/sec ExpTime-Pre 5.73 sec Eaw1zbn4-Jkug 82 % Zxv1phe7-Hpz 87 % Mel7hfp0-%Pred-Pre 106 % Auc0jfh1-IAE 73 % Procedures Date Code Description Status 09/27/2020 45363 Office/Outpatient Established Mo d MDM 30-39 Min Completed 08/11/2020 39702 Office/Outpatient New Moderate M DM 45-59 Minutes Completed 08/11/2020 83175 Spirometry Completed Medical Devices Description No Information Available Encounters Type Date Location Provider Dx Diagnosis Office Visit 09/27/2020 9:30a [facility] KHAI Myles R06.00 Dyspnea, unspecified G47.33 Obstructive sleep apnea (petrona lt) (pediatric) Z87.891 Personal history of nicotine dependence Office Visit 08/11/2020 10:30a [facility] KHAI Myles R06.00 Dyspnea, unspecified R40.0 [...] 01/03/2021 12:30 pm - KHAI Myles at [facility] * 11/01/2020 7:45 pm - [facility] * 10/27/2020 3:00 pm - KHAI Myles at [facility] * 10/12/2020 10:00 am - [facility] * 11/17/2020 10:00 am - Evaristo Vogel M.D. at [facility] 09/27/2020 - KHAI Myles* R06.00 [...] to Reason for Referral Status Appt Date [facility] Sleep Lab [address] Scheduled 08/30/2020 Sleep Lab [address] [place], [place] [address] [phone] Oleg Powell M.D. SNORING, SOB, HX COVID IN [place] Created [facility], Gastroenterology [address] [facility] [address], [address] [place] [address] [phone] Oleg Powell M.D. K21.0 GERD with esophagitis, without bleedin g Scheduled 09/29/2020 [facility], Gastroenterology [address], [address] [place] [address] [phone] Bartolome Ellis, R.P.A.-C. SNORING, SOB, HX COVID Scheduled 08/11/2020 [facility] [address] [place], [place] [id number] [phone]
--- OUTSIDE RECORDS SUMMARY | 2020-12-20 12:59 | CCD | Continuity of Care Document ---
Author Author Ten ELLIS Organization Unknown Address [address] [place] [address] Phone [phone] Care Team Providers Care Tractor Operator Battery Name Role Phone Leonor Bella AUTM [phone] AUTM Unavailable Problems Active Problems Provider Date [...] lb BMI (Body Mass Index) 40.6 kg/m2 [place] Body Weight 148 lb Weight 117.482 kg BSA (Body Surface Area) 2.26 m2 09/27/2020 9:22am BP Systolic 120 mmHg BP Diastolic 70 mmHg Heart Rate 79 /min O2 % BldC Oximetry 96 % Height 67 inches 5'7" Weight 254.50 lb BMI (Body Mass Index) 39.9 kg/m2 [place] Body Weight 148 lb Weight 115.441 kg [...] L Fev6-%Pred-Pre 73 L Fev6-LLN 3.88 L Xzk2uka-Sbaz 80 % Gux0rqv-Sxg 87 % Wgl3ahe-%Pred-Pre 109 % Veh9oel-MRU 70 % Xzr0duo-Jgdp 98 % Fvj0jvt-Rcd 100 % Qda3eek-%Pred-Pre 102 % FEFMax-Pred 9.53 L/E/sec FEFMax-Pre 6.44 L/E/sec FEFMax-%Pred-Pre 67 L/E/sec FEFMax-LLN 7.40 L/E/sec Dhb7677-Yjkn 3.75 L/E/sec Pik5185-Oje 4.40 L/E/sec Dpo6698-%Pred-Pre 117 L/E/sec Hnn9771-TXE 2.28 L/E/sec ExpTime-Pre 5.73 sec Hiy7fhy9-Rhru 82 % Wan3buu2-Nzb 87 % Gts7uog2-%Pred-Pre 106 % Tka4fun4-ZDX 73 % Procedures Date Code Description Status 09/27/2020 51992 Office/Outpatient Established Mo d MDM 30-39 Min Completed 08/11/2020 86532 Office/Outpatient New Moderate M DM 45-59 Minutes Completed 08/11/2020 31365 Spirometry Completed Medical Devices Description No Information Available Encounters Type Date Location Provider Dx Diagnosis Office Visit 09/27/2020 9:30a [facility] KHAI Myles R06.00 Dyspnea, unspecified G47.33 Obstructive sleep apnea (petrona lt) (pediatric) Z87.891 Personal history of nicotine dependence Office Visit 08/11/2020 10:30a [facility] KHAI Myles R06.00 Dyspnea, unspecified R40.0 [...] Treatment Future Appointment(s):* 11/09/2020 7:45 pm - [facility] * 01/03/2021 12:30 pm - KHAI yMles at [facility] * 11/17/2020 10:00 am - Evaristo Vogel M.D. at [facility] 11/08/2020 - KHAI Myles* J45.20 [...] Dr Reason for Referral Status Appt Date [facility] Sleep Lab [address] Closed 11/09/2020 Sleep Lab [address] [place], [place] [id number] [phone] [facility] Sleep Lab [address] Closed 08/30/[address] [place], [place] [id number] [phone] Oleg Powell M.D. SNORING, SOB, HX COVID IN [place] Created [facility], Gastroenterology [address] [place] [address], [address] [place], [place] [address] [phone] Oleg Powell M.D. K21.0 GERD with esophagitis, without bleedin g Scheduled 09/29/2020 [facility], Gastroenterology [address] [facility], [address] [place] [address] [phone] Bartolome Ellis, R.P.A.-C. SNORING, SOB, HX COVID Scheduled 08/11/2020 [facility] [address] [place], [place] [id number] [phone]
--- OUTSIDE RECORDS SUMMARY | 2020-12-20 12:59 | CCD ---
Author Organization Unknown Address [address] [place] [address] Phone [phone] Care Team Providers Care Research Program Intern Name Role Phone Manolo Carney Unavailable Unavailable Allergies Code Code System Name Reaction Severity Status Onset Aspirin Active 02/04/2018 49400 RxNorm Atorvastatin Other Moderate Active 021 5640 RxNorm Ibuprofen Active Notes: Some allergies listed in Document s: #[id number], #[id number] could not be added to this patient's chart. Please review these documents and add these allergies to the patient's chart manually as needed. Medications Name Status Start Date Stop Date albuterol sulfate 2.5 mg/3 mL (0.083 %) solution for nebulizatio n Active Not available albuterol sulfate HFA 90 mcg/actuation aerosol inhaler Active Not available amoxicillin 875 mg tablet [...] THREE TIMES A DAY Active Not available folic acid 1 mg tablet TAKE ONE TABLET BY MOUTH EVERY DAY Completed 07/21 gemfibrozil 600 mg tablet Take 1 tablet every day by oral route. Active Not available ketorolac 0.5 % eye drops INSTILL ONE [...] breath activated aerosol Act nguyen Not available Vitamin C once daily immune support OTC Active Not avail able vitamin d3 50 mcg (1999 ut) caps Completed 11/02/2020 Problems Name Status Onset Date Source Generalized [...] Unknown 10/13/[address] Concept Unknown 10/13/[address] Concept Unknown 10/13/2019 History Covid-19 Unknown 03/10/2020 Procedures Date Name Performed by 05/19/2020 Electrocardiogram [facility] [address] [facility] [address] [place] [address] (Work Place) Results Lab Results Date Name Specimen Result Interpretation Description Value Range Status Address 10/26/2020 Lipid Panel, Serum Blood venous High Yolanda sterol, Total 219 mg/dL <200 mg/dL Final [facility]: [address] [facility] [place], [place] Blood venous Normal HDL Cholesterol 54 mg/dL > or = 40 mg/dL Final [facility]: [address], [place] Blood venous Normal Triglycerides 114 mg/dL <150 mg/dL Final [facility]: [address] [facility] Blood venous High LDL-cholesterol 142 mg/dL (ca lc) Final [facility]: [address] [facility] Blood venous Normal Chol/hdlc Ratio 4.1 (calc) <5 .0 (calc) Final [facility]: [address] [facility] Blood venous High Non HDL Cholesterol 165 mg/dL (calc) <130 mg/dL (calc) Final [facility]: [address] [facility] 10/26/2020 CMP, Serum or Plasma Blood venous Normal Glucose 96 mg/dL 65-99 mg/dL Final [facility]: [address] [facility] Blood venous Normal Urea Nitrogen (BUN) 16 mg/dL 7-25 mg/dL Final [facility]: [address] [facility] Blood venous Normal Creatinine 1.05 mg/dL 0.60-1. 35 mg/dL Final [facility]: [address] [facility] Blood venous Normal eGFR Non-afr. Afghan 8 8 mL/min/1.73m2 > or = 60 mL/min/1.73m2 Final [facility]: [address] [facility] Blood venous Normal eGFR 10 2 mL/min/1.73m2 > or = 60 mL/min/1.73m2 Final [facility]: [address] [facility] Blood venous BUN/creatinine Ratio not applicable (calc) 6-22 (calc) Final [facility]: [address] [facility] Blood venous Normal Sodium 140 mmol/L 135-146 mmo l/L Final [facility]: [address] [facility] Blood venous Normal Potassium 4.3 mmol/L 3.5-5.3 mmol/L Final [facility]: [address] [facility] Blood venous Normal Chloride 103 mmol/L 98-110 mm ol/L Final [facility]: [address] [facility] Blood venous Normal Carbon Dioxide 31 mmol/L 20-3 2 mmol/L [facility]: [address] [facility] Blood venous Normal Calcium 9.2 mg/dL 8.6-10.3 mg /dL Final [facility]: [address] [facility] Blood venous Normal Protein, Total 7.5 g/dL 6.1-8 .1 g/dL [facility]: [address] [facility] Blood venous Normal Albumin 4.3 g/dL 3.6-5.1 g/dL [facility]: [address] [facility] Blood venous Normal Globulin 3.2 g/dL (calc) 1.9- 3.7 g/dL (calc) [facility]: [address] [facility] Blood venous Normal Albumin/globulin Ratio 1 .3 (calc) 1.0-2.5 (calc) [facility]: [address] , [place] Blood venous Normal Bilirubin, Total 0.6 mg/dL 0. 2-1.2 mg/dL [facility]: [address] [facility] [place], [place] Blood venous Normal Alkaline Phosphatase 108 U/L 36-130 U/L [facility]: [address] [facility] Blood venous Normal Ast 15 U/L 10-40 U/L Final [facility]: [address] [facility] Blood venous Normal Alt 20 U/L 9-46 U/L Final [facility]: [address] [facility] 10/26/2020 Cbc Blood venous Normal White Blood Cell Count 6.4 thousand/uL 3.8-10.8 thousand/uL [facility]: [address] [facility] Blood venous Normal Red Blood Cell Count 4.8 4 million/uL 4.20-5.80 million/uL Final [facility]: [address] [facility] Blood venous Normal Hemoglobin 15.0 g/dL 13.2-17. 1 g/dL [facility]: [address] [facility] Blood venous Normal Hematocrit 45.3 % 38.5-50.0 % [facility]: [address] [facility] Blood venous Normal Mcv 93.6 fL 80.0-100.0 fL Fi nal [facility]: [address] [facility] Blood venous Normal Mch 31.0 pg 27.0-33.0 pg Fin al [facility]: [address] [facility] Blood venous Normal Mchc 33.1 g/dL 32.0-36.0 g/dL Final [facility]: [address] [facility] Blood venous Normal Rdw 12.2 % 11.0-15.0 % [facility]: [address] [facility] Blood venous Normal Platelet Count 341 thous and/uL 140-400 thousand/uL Final [facility]: [address] [facility] Blood venous Normal Mpv 11.7 fL 7.5-12.5 fL Yakelin l [facility]: [address] [facility] 10/26/2020 Tsh Blood venous High Tsh 4.80 mIU/L 0.40-4.50 mIU/L Final [facility]: [address] [facility] 10/26/2020 Vitamin D, 25-Hydroxy, Total, Serum Blood venous Low Vitamin D,25-Oh,total,ia 24 NG/mL 30-100 NG/mL Final [facility]: [address] [facility] 07/26/2020 Lipid Panel, Serum Blood venous Normal Yolanda sterol, Total 192 mg/dL <200 mg/dL Final [facility]: [address] [facility] Blood venous Normal HDL Cholesterol 49 mg/dL > or = 40 mg/dL Final [facility]: [address] [facility] Blood venous Normal Triglycerides 127 mg/dL <150 mg/dL [facility]: [address] [facility] Blood venous High LDL-cholesterol 119 mg/dL (ca lc) [facility]: [address] [facility] Blood venous Normal Chol/hdlc Ratio 3.9 (calc) <5 .0 (calc) [facility]: [address] [facility] Blood venous High Non HDL Cholesterol 143 mg/dL (calc) <130 mg/dL (calc) Final [facility]: [address] [facility] 07/26/2020 CMP, Serum or Plasma Blood venous Normal Glucose 91 mg/dL 65-99 mg/dL Final [facility]: [address] [facility] Blood venous Normal Urea Nitrogen (BUN) 15 mg/dL 7-25 mg/dL [facility]: [address] [facility] Blood venous Normal Creatinine 0.93 mg/dL 0.60-1. 35 mg/dL Final [facility]: [address] [facility] Blood venous Normal eGFR Non-afr. Afghan 1 03 mL/min/1.73m2 > or = 60 mL/min/1.73m2 [facility]: [address] [facility] Blood venous Normal eGFR 11 9 mL/min/1.73m2 > or = 60 mL/min/1.73m2 Final [facility]: [address] [facility] Blood venous BUN/creatinine Ratio not applicable (calc) 6-22 (calc) [facility]: [address] [facility] Blood venous Normal Sodium 140 mmol/L 135-146 mmo l/L [facility]: [address] [facility] Blood venous Normal Potassium 4.1 mmol/L 3.5-5.3 mmol/L [facility]: [address] [facility] Blood venous Normal Chloride 101 mmol/L 98-110 mm ol/L [facility]: [address] [facility] Blood venous Normal Carbon Dioxide 30 mmol/L 20-3 2 mmol/L [facility]: [address] [facility] Blood venous Normal Calcium 9.2 mg/dL 8.6-10.3 mg /dL [facility]: [address] [facility] Blood venous Normal Protein, Total 7.2 g/dL 6.1-8 .1 g/dL [facility]: [address] [facility] Blood venous Normal Albumin 4.1 g/dL 3.6-5.1 g/dL [facility]: [address] [facility] Blood venous Normal Globulin 3.1 g/dL (calc) 1.9- 3.7 g/dL (calc) [facility]: [address] [facility] Blood venous Normal Albumin/globulin Ratio 1 .3 (calc) 1.0-2.5 (calc) [facility]: [address] [facility] Blood venous Normal Bilirubin, Total 0.7 mg/dL 0. 2-1.2 mg/dL [facility]: [address] [facility] Blood venous Normal Alkaline Phosphatase 101 U/L 36-130 U/L [facility]: [address] [facility] Blood venous Normal Ast 13 U/L 10-40 U/L Final [facility]: [address] [facility] Blood venous Normal Alt 17 U/L 9-46 U/L [facility] [address] [facility] 07/26/2020 Cbc Blood venous Normal White Blood Cell Count 6.7 thousand/uL 3.8-10.8 thousand/uL Final [facility] gh: [address] [facility] Blood venous Normal Red Blood Cell Count 4.6 1 million/uL 4.20-5.80 million/uL Final [facility] gh: [address] [facility] Blood venous Normal Hemoglobin 14.6 g/dL 13.2-17. 1 g/dL Final [facility]: [address] [facility] Blood venous Normal Hematocrit 43.9 % 38.5-50.0 % [facility]: [address] [facility] Blood venous Normal Mcv 95.2 fL 80.0-100.0 fL Fi nal [facility]: [address] [facility] Blood venous Normal Mch 31.7 pg 27.0-33.0 pg Fin al [facility]: [address] [facility] Blood venous Normal Mchc 33.3 g/dL 32.0-36.0 g/dL Final [facility]: [address] [facility] Blood venous Normal Rdw 12.4 % 11.0-15.0 % [facility]: [address] [facility] Blood venous Normal Platelet Count 330 thous and/uL 140-400 thousand/uL Final [facility]: [address] [facility] Blood venous Normal Mpv 11.5 fL 7.5-12.5 fL Yakelin l [facility]: [address] [facility] 07/26/2020 TSH, Serum or Plasma Blood venous Normal TSH W/reflex to FT4 2.28 mIU/L 0.40-4.50 mIU/L Final [facility]: [address] [facility] 07/26/2020 Vitamin D, 25-Hydroxy, Total, Serum Blood venous Low Vitamin D,25-Oh,total,ia 23 NG/mL 30-100 NG/mL Final [facility] [address] 05/25/2020 Lipid Panel, Serum Blood venous No observation recorded. [facility] (Lab): [address] [place] [address] 05/25/2020 CMP, Serum or Plasma Blood venous Normal Glu cose, Fasting 94 mg/dL 70-100 mg/dL [facility] nter: [address] [place] [address] Blood venous Normal Blood Urea Nitrogen 13 mg/dL 7-18 mg/dL [facility]: [address] [place] [address] Blood venous Normal Creatinine for GFR 0.91 mg/dL 0.70-1.30 mg/dL [facility]: [address] [place] [address] Blood venous Normal Glomerular Filtration Rate > 60.0 >60 [facility]: [address] [place] [address] Blood venous Normal Sodium Level 139 mEq/L 136-14 5 mEq/L [facility]: [address] [place] [address] Blood venous Normal Potassium Serum 3.9 mEq/L 3.5 -5.1 mEq/L [facility]: [address] [place] [address] Blood venous Normal Chloride Level 103 mEq/L 98-1 07 mEq/L [facility]: [address] [place] [address] Blood venous Normal Carbon Dioxide Level 29 mEq/L 21-32 mEq/L [facility]: [address] [place] [address] Blood venous Low Anion Gap 7 mEq/L 8-16 mEq/L [facility]: [address] [place] [address] Blood venous Normal Calcium Level 9.1 mg/dL 8.5-1 0.1 mg/dL [facility]: [address] [place] [address] Blood venous Normal AST/SGOT 12 U/L 7-37 U/L Yakelin bhupendra [facility]: [address] [place] [address] Blood venous Normal ALT/SGPT 25 U/L 12-78 U/L Fin al [facility]: [address] [place] [address] Blood venous Normal Alkaline Phosphatase 107 U/L 45-117 U/L [facility]: [address] [place] [address] Blood venous Normal Bilirubin,total 0.4 mg/dL 0.2 -1.0 mg/dL [facility]: [address] [facility] Blood venous Normal Total Protein 7.4 gm/dL 6.4-8 .2 gm/dL [facility]: [address] [facility] Blood venous Normal Albumin 3.6 gm/dL 3.2-5.2 gm/ dL [facility]: [address] [facility] Blood venous Normal Albumin/globulin Ratio 0.9 [facility]: [address] [facility] 05/25/2020 Lipid Panel, Blood Normal Triglycerides Lev el 94 mg/dL <150 mg/dL [facility]: [address] [facility] Normal Cholesterol Level 162 mg/dL <200 mg/ dL [facility]: [address] [facility] Normal HDL Cholesterol 51 mg/dL >40 mg/dL F inal [facility]: [address] [facility] Normal LDL Cholesterol 92 mg/dL <100 mg/dL [facility]: [address] [facility] Normal Non-hdl-c 111 mg/dL [facility]: [address] [facility] Normal Cholesterol Risk Ratio 3.176 <5 [facility]: [address] [facility] 05/25/2020 Vitamin D, 25-Hydroxy, Total, Serum Blood venous Low Total 25(Oh) Vitamin D 17.0 NG/mL 30.0-100.0 NG/mL [facility]: [address] [facility] 05/12/2020 CBC W/ Auto Diff Blood venous Normal White Blood C ount 5.8 10 4.0-10.0 10 [facility]: [address] [facility] Blood venous Normal Red Blood Count 4.92 10 4.30- 6.10 10 [facility]: [address] [facility] Blood venous Normal Hemoglobin 15.5 g/dL 13.5-17. 5 g/dL [facility]: [address] [facility] Blood venous Normal Hematocrit 48.4 % 42.0-52.0 % [facility]: [address] [place] [address] Blood venous High Mean Corpuscular Volume 98.4 fL 80.0-96.0 fL [facility]: [address] [place] [address] Blood venous Normal Mean Corpuscular Hemoglob in 31.5 pg 27.0-33.0 pg [facility]: [address] [place] [address] Blood venous Normal Mean Corpuscular HGB Conc 32.0 g/dL 32.0-36.5 g/dL [facility]: [address] [place] [address] Blood venous Normal Red Cell Distribution Wid th 12.9 % 11.5-14.5 % [facility]: [address] [place] [address] Blood venous Normal Platelet Count, Automated 352 10 150-450 10 [facility]: [address] [place] [address] Blood venous Normal Neutrophils % 58.1 % 36.0-66. 0 % [facility]: [address] [place] [address] Blood venous Normal Lymph % 28.2 % 24.0-44.0 % [facility]: [address] [place] [address] Blood venous High [place] % 9.2 % 2.0-8.0 % [facility]: [address] [place] [address] Blood venous High Eos % 3.3 % 0.0-3.0 % [facility]: [address] [place] [address] Blood venous Normal Baso % 0.7 % 0.0-1.0 % [facility]: [address] [place] [address] Blood venous Normal Immature Granulocyte % 0.5 % 0-3.0 % [facility]: [address] [place] [address] Blood venous Normal Nucleated Red Blood Cell % 0. 0 % 0-0 % [facility]: [address] [place] [address] Blood venous Normal Neutrophils # 3.3 10 1.5-8.5 10 [facility]: [address] [place] [address] Blood venous Normal Lymph # 1.6 10 1.5-5.0 10 Fin [facility]: [address] [place] [address] Blood venous Normal [place] # 0.5 10 0.0-0.8 10 [facility]: [address] [place] [address] Blood venous Normal Eos # 0.2 10 0.0-0.5 10 [facility]: [address] [place] [address] Blood venous Normal Baso # 0.0 10 0.0-0.2 10 [facility]: [address] [place] [address] 05/12/2020 CMP, Serum or Plasma Blood venous Normal Glu cose, Fasting 89 mg/dL 70-100 mg/dL [facility] nter: [address] [place] [address] Blood venous Normal Blood Urea Nitrogen 10 mg/dL 7-18 mg/dL [facility]: [address] [place] [address] Blood venous Normal Creatinine for GFR 0.93 mg/dL 0.70-1.30 mg/dL [facility]: [address] [place] [address] Blood venous Normal Glomerular Filtration Rate > 60.0 >60 [facility]: [address] [place] [address] Blood venous Normal Sodium Level 139 mEq/L 136-14 5 mEq/L [facility]: [address] [place] [address] Blood venous Normal Potassium Serum 4.7 mEq/L 3.5 -5.1 mEq/L [facility]: [address] [place] [address] Blood venous Normal Chloride Level 104 mEq/L 98-1 07 mEq/L [facility]: [address] [place] [address] Blood venous Normal Carbon Dioxide Level 29 mEq/L 21-32 mEq/L [facility]: [address] [place] [address] Blood venous Low Anion Gap 6 mEq/L 8-16 mEq/L [facility]: [address] [place] [address] Blood venous Normal Calcium Level 9.2 mg/dL 8.5-1 0.1 mg/dL [facility]: [address] [place] [address] Blood venous Normal AST/SGOT 13 U/L 7-37 U/L [facility]: [address] [place] [address] Blood venous Normal ALT/SGPT 28 U/L 12-78 U/L [facility]: [address] [facility] Blood venous Normal Alkaline Phosphatase 110 U/L 45-117 U/L [facility]: [address] [facility] Blood venous Normal Bilirubin,total 0.4 mg/dL 0.2 -1.0 mg/dL [facility]: [address] [facility] Blood venous Normal Total Protein 7.9 gm/dL 6.4-8 .2 gm/dL [facility]: [address] [facility] Blood venous Normal Albumin 4.0 gm/dL 3.2-5.2 gm/ dL [facility]: [address] [facility] Blood venous Normal Albumin/globulin Ratio 1.0 [facility]: [address] [place] [address] 05/12/2020 Lipid Panel, Blood Normal Triglycerides Lev el 99 mg/dL <150 mg/dL [facility]: [address] [facility] High Cholesterol Level 235 mg/dL <200 mg/ dL [facility]: [address] [facility] Normal HDL Cholesterol 55 mg/dL >40 mg/dL F hartmanl [facility]: [address] [facility] High LDL Cholesterol 160 mg/dL <100 mg/dL [facility]: 0 [facility] Normal Non-hdl-c 180 mg/dL [facility]: [address] [facility] Normal Cholesterol Risk Ratio 4.272 <5 [facility]: 0 [facility] 05/12/2020 TSH, Serum or Plasma Blood venous Normal Thyroid Stimulating Hormone 2.260 uIU/mL 0.358-3.740 uIU/mL [facility] ical Center: 0 [facility] 05/12/2020 Vitamin D, 25-Hydroxy, Total, Serum Blood venous Low Total 25(Oh) Vitamin D 17.5 NG/mL 30.0-100.0 NG/mL [facility]: [address] [facility] Past Encounters 11/02/2020 Patient Informed - Test Result; Irritable Bowel Syndrome; Gastro-esophageal Reflux Disease with Esophagitis; Hypothyroidism; Hyperlipidemia; Counseling; Vitamin D Deficiency Manolo Carney, RPA-C: [address] [facility] [address], [place] [address], Ph. 10/26/2020 Hypothyroidism; Gastro-esophageal Reflux Disease with Esophagitis; Vitamin D Deficiency; Hyperlipidemia Manolo Carney, RPA-C: [address] [facility], [facility] [address], [place] [address], Ph. 08/10/2020 Patient Informed - Test Result; Hyperlipidemia; Irritable Bowel Syndrome; Gastro-esophageal Reflux Disease with Esophagitis; Vitamin D Deficiency; Allergic Rhinitis; Hypothyroidism Manolo Carney RPA-C: [address] [facility], [facility] [address], [place] [address], Ph. 07/26/2020 Hyperlipidemia; Hypothyroidism; Vitamin D Deficiency Manolo Carney RPA-C: [address] [facility], [facility] [address], [place] [address], Ph. 06/07/2020 Gastro-esophageal Reflux Disease with Esophagitis; Hyperlipidemia; Vitamin D Deficiency; Chest Pain; Dyspnea JENNIFER CedilloC: [address] [facility], [facility] [address], [place] [address], Ph. 05/25/2020 Thom Alvarado MD: [address] [place] [address], Ph. 05/19/2020 Chest Pain; Gastro-esophageal Reflux Disease with Esophagitis; Generalized Anxiety Disorder; Hyperlipidemia; Hypothyroidism; Irritable Bowel Syndrome; Vitamin D Deficiency; Snoring Symptoms; Dyspnea on Exertion Leonor Bella RPA-C: [address] [facility], [facility] [address], [place] [address], Ph. 05/12/2020 Hypothyroidism; Vitamin D Deficiency; Hyperlipidemia JENNIFER CedilloC: [address] Hospital, [facility] [address], [place] [address], Ph. 03/10/2020 Covid-19 Thom Alvarado MD: [address], [place] [address], Ph. Social History Tobacco Smoking Status Never [...]
--- OUTSIDE RECORDS SUMMARY | 2020-12-20 12:59 | CCD ---
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 Please review these documents and add these allergies to the patient's chart manually as needed. Medications Name Status Start Date Stop Date albuterol sulfate 2.5 mg/3 mL (0.083 %) solution for nebulizatio n Active Not available albuterol sulfate HFA 90 mcg/actuation aerosol inhaler Completed 05/19/2020 amoxicillin 875 mg tablet TAKE ONE TABLET BY MOUTH EVERY 12 HOURS FOR 10 DAYS Active Not available atorvastatin 10 mg tablet TAKE ONE TABLET [...] TABLET BY MOUTH EVERY DAY Completed 07/21 ketorolac 0.5 % eye drops INSTILL ONE DROP INTO RIGHT EYE FOUR TIMES A DAY DIRECTED Active Not available latanoprost 0.005 % eye drops Active No t available levothyroxine 50 mcg tablet Active Not available nitroglycerin 0.4 mg sublingual [...] breath activated aerosol Act nguyen Not available vitamin d3 50 mcg (1999) caps Active Not available Problems Name Status Onset Date Source Generalized Anxiety Disorder Active 03/05/2018 His tory Adjustment Disorder with Anxious Mood Active 03/11/2018 History Gastro-esophageal Reflux Disease with Esophagitis Active 09/02/2018 History Chronic Cluster Headache Active 11/15/2018 History Gastric Ulcer Active 11/15/2018 History Hyperlipidemia Active 11/25/2018 History Endocrine/metabolic Screening Active 11/25/2018 Hi story Hypothyroidism Active 12/02/2018 History Vitamin D Deficiency Active 12/02/2018 History 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 History Allergic Rhinitis Active 05/16/2019 History Chest Pain Active 09/18/2019 History Irritable Bowel Syndrome Active 10/13/2019 History Influenza Vaccine Needed Active 10/13/[address] Concept Active 10/13/[address] Concept Unknown 10/13/2019 History Covid-19 Active 03/10/2020 Procedures Date Name Performed by 05/19/2020 Electrocardiogram [facility] [address] [facility] [address] [place] [address] (Work Place) Results Lab Results Date Name Specimen Result Interpretation Description Value Range Status Address 07/26/2020 Lipid Panel, Serum Blood venous Normal Yolanda sterol, Total 192 mg/dL <200 mg/dL Final [facility]: [address] [facility] Blood venous Normal HDL Cholesterol 49 mg/dL > or = 40 mg/dL Final [facility]: [address] [facility] Blood venous Normal Triglycerides 127 mg/dL <150 mg/dL Final [facility]: [address] [facility] Blood venous High LDL-cholesterol 119 mg/dL (ca lc) Final [facility]: [address] [facility] Blood venous Normal Chol/hdlc Ratio 3.9 (calc) <5 .0 (calc) Final [facility]: [address] [facility] Blood venous High Non HDL Cholesterol 143 mg/dL (calc) <130 mg/dL (calc) Final [facility]: [address] [facility] 07/26/2020 CMP, Serum or Plasma Blood venous Normal Glucose 91 mg/dL 65-99 mg/dL Final [facility]: [address] [facility] Blood venous Normal Urea Nitrogen (BUN) 15 mg/dL 7-25 mg/dL Final [facility]: [address] [facility] Blood venous Normal Creatinine 0.93 mg/dL 0.60-1. 35 mg/dL [facility]: [address] [facility] Blood venous Normal eGFR Non-afr. Montenegrin 1 03 mL/min/1.73m2 > or = 60 mL/min/1.73m2 Final [facility]: [address] [facility] Blood venous Normal eGFR 11 9 mL/min/1.73m2 > or = 60 mL/min/1.73m2 Final [facility]: [address] [facility] Blood venous BUN/creatinine Ratio not applicable (calc) 6-22 (calc) [facility]: [address] [facility] Blood venous Normal Sodium 140 mmol/L 135-146 mmo l/L [facility]: [address] [facility] Blood venous Normal Potassium 4.1 mmol/L 3.5-5.3 mmol/L [facility]: [address] [facility] Blood venous Normal Chloride 101 mmol/L 98-110 mm ol/L Final [facility]: [address] [facility] Blood venous Normal Carbon Dioxide 30 mmol/L 20-3 2 mmol/L [facility]: [address] [facility] Blood venous Normal Calcium 9.2 mg/dL 8.6-10.3 mg /dL [facility]: [address] [facility] Blood venous Normal Protein, Total 7.2 g/dL 6.1-8 .1 g/dL [facility]: [address] [facility] Blood venous Normal Albumin 4.1 g/dL 3.6-5.1 g/dL [facility]: [address] [facility] Blood venous Normal Globulin 3.1 g/dL (calc) 1.9- 3.7 g/dL (calc) [facility] [address] [facility] Blood venous Normal Albumin/globulin Ratio 1 .3 (calc) 1.0-2.5 (calc) [facility]: [address] [facility] Blood venous Normal Bilirubin, Total 0.7 mg/dL 0. 2-1.2 mg/dL Final [facility]: [address] [place] Blood venous Normal Alkaline Phosphatase 101 U/L 36-130 U/L [facility]: [address] [facility] Blood venous Normal Ast 13 U/L 10-40 U/L [facility]: [address] [facility] Blood venous Normal Alt 17 U/L 9-46 U/L Final [facility]: [address] [facility] 07/26/2020 Cbc Blood venous Normal White Blood Cell Count 6.7 thousand/uL 3.8-10.8 thousand/uL [facility] gh: [address] [facility] Blood venous Normal Red Blood Cell Count 4.6 1 million/uL 4.20-5.80 million/uL Final [facility] gh: [address] [facility] Blood venous Normal Hemoglobin 14.6 g/dL 13.2-17. 1 g/dL [facility]: [address] [facility] Blood venous Normal Hematocrit 43.9 % 38.5-50.0 % Final [facility]: [address] [facility] Blood venous Normal Mcv 95.2 fL 80.0-100.0 fL Fi nal [facility]: [address] [facility] Blood venous Normal Mch 31.7 pg 27.0-33.0 pg Fin al [facility]: [address] [facility] Blood venous Normal Mchc 33.3 g/dL 32.0-36.0 g/dL [facility]: [address] [facility] Blood venous Normal Rdw 12.4 % 11.0-15.0 % [facility]: [address] [facility] Blood venous Normal Platelet Count 330 thous and/uL 140-400 thousand/uL Final [facility]: [address] [facility] Blood venous Normal Mpv 11.5 fL 7.5-12.5 fL Yakelin l [facility]: [address] [facility] 07/26/2020 TSH, Serum or Plasma Blood venous Normal TSH W/reflex to FT4 2.28 mIU/L 0.40-4.50 mIU/L Final [facility]: [address] [facility] 07/26/2020 Vitamin D, 25-Hydroxy, Total, Serum Blood venous Low Vitamin D,25-Oh,total,ia 23 NG/mL 30-100 NG/mL Final [facility]: [address] [facility] 05/25/2020 Lipid Panel, Serum Blood venous No observation recorded. [facility] (Lab): [address] [place] [address] 05/25/2020 CMP, Serum or Plasma Blood venous Normal Glu cose, Fasting 94 mg/dL 70-100 mg/dL [facility] nter: 0 [facility] Blood venous Normal Blood Urea Nitrogen 13 mg/dL 7-18 mg/dL [facility]: [address] [place] [address] Blood venous Normal Creatinine for GFR 0.91 mg/dL 0.70-1.30 mg/dL [facility]: [address] [place] [address] Blood venous Normal Glomerular Filtration Rate > 60.0 >60 [facility]: [address] [place] [address] Blood venous Normal Sodium Level 139 mEq/L 136-14 5 mEq/L [facility]: 0 [facility] Blood venous Normal Potassium Serum 3.9 mEq/L 3.5 -5.1 mEq/L [facility]: [address] [place] [address] Blood venous Normal Chloride Level 103 mEq/L 98-1 07 mEq/L [facility]: 0 [facility] Blood venous Normal Carbon Dioxide Level 29 mEq/L 21-32 mEq/L [facility]: 0 [facility] Blood venous Low Anion Gap 7 mEq/L 8-16 mEq/L [facility]: [address] [facility] Blood venous Normal Calcium Level 9.1 mg/dL 8.5-1 0.1 mg/dL Final [facility]: [address] [facility] Blood venous Normal AST/SGOT 12 U/L 7-37 U/L Yakelin l [facility]: [address] [facility] Blood venous Normal ALT/SGPT 25 U/L 12-78 U/L [facility] al [facility]: [address] [facility] Blood venous Normal Alkaline Phosphatase 107 U/L 45-117 U/L [facility]: [address] [facility] Blood venous Normal Bilirubin,total 0.4 mg/dL 0.2 -1.0 mg/dL [facility]: [address] [facility] Blood venous Normal Total Protein 7.4 gm/dL 6.4-8 .2 gm/dL [facility]: [address] [facility] Blood venous Normal Albumin 3.6 gm/dL 3.2-5.2 gm/ dL [facility]: [address] [facility] Blood venous Normal Albumin/globulin Ratio 0.9 [facility]: [address] [facility] 05/25/2020 Lipid Panel, Blood Normal Triglycerides Lev el 94 mg/dL <150 mg/dL [facility]: 83 0 [facility] Normal Cholesterol Level 162 mg/dL <200 mg/ dL [facility]: [address] [facility] Normal HDL Cholesterol 51 mg/dL >40 mg/dL F brandonl [facility]: [address] [facility] Normal LDL Cholesterol 92 mg/dL <100 mg/dL [facility]: [address] [facility] Normal Non-hdl-c 111 mg/dL [facility]: [address] [facility] Normal Cholesterol Risk Ratio 3.176 <5 [facility]: [address] [facility] 05/25/2020 Vitamin D, 25-Hydroxy, Total, Serum Blood venous Low Total 25(Oh) Vitamin D 17.0 NG/mL 30.0-100.0 NG/mL Final [facility]: [address] [place] [address] 05/12/2020 CBC W/ Auto Diff Blood venous Normal White Blood C ount 5.8 10 4.0-10.0 10 [facility]: 83 0 [facility] Blood venous Normal Red Blood Count 4.92 10 4.30- 6.10 10 [facility]: [address] [facility] Blood venous Normal Hemoglobin 15.5 g/dL 13.5-17. 5 g/dL [facility]: [address] [place] [address] Blood venous Normal Hematocrit 48.4 % 42.0-52.0 % [facility]: [address] [place] [address] Blood venous High Mean Corpuscular Volume 98.4 fL 80.0-96.0 fL [facility]: [address] [place] [address] Blood venous Normal Mean Corpuscular Hemoglob in 31.5 pg 27.0-33.0 pg [facility]: [address] [place] [address] Blood venous Normal Mean Corpuscular HGB Conc 32.0 g/dL 32.0-36.5 g/dL [facility]: [address] [place] [address] Blood venous Normal Red Cell Distribution Wid th 12.9 % 11.5-14.5 % [facility]: [address] [place] [address] Blood venous Normal Platelet Count, Automated 352 10 150-450 10 [facility]: 0 [facility] Blood venous Normal Neutrophils % 58.1 % 36.0-66. 0 % [facility]: [address] [place] [address] Blood venous Normal Lymph % 28.2 % 24.0-44.0 % Fi [facility]: [address] [place] [address] Blood venous High [place] % 9.2 % 2.0-8.0 % [facility]: [address] [place] [address] Blood venous High Eos % 3.3 % 0.0-3.0 % [facility]: [address] [place] [address] Blood venous Normal Baso % 0.7 % 0.0-1.0 % [facility]: [address] [place] [address] Blood venous Normal Immature Granulocyte % 0.5 % 0-3.0 % [facility]: [address] [place] [address] Blood venous Normal Nucleated Red Blood Cell % 0. 0 % 0-0 % [facility]: [address] [place] [address] Blood venous Normal Neutrophils # 3.3 10 1.5-8.5 10 [facility]: [address] [place] [address] Blood venous Normal Lymph # 1.6 10 1.5-5.[address] [facility]: [address] [place] [address] Blood venous Normal [place] # 0.5 10 0.0-0.8 10 [facility]: [address] [place] [address] Blood venous Normal Eos # 0.2 10 0.0-0.5 10 [facility]: [address] [place] [address] Blood venous Normal Baso # 0.0 10 0.0-0.2 10 [facility]: [address] [place] [address] 05/12/2020 CMP, Serum or Plasma Blood venous Normal Glu cose, Fasting 89 mg/dL 70-100 mg/dL [facility] nter: [address] [place] [address] Blood venous Normal Blood Urea Nitrogen 10 mg/dL 7-18 mg/dL [facility]: [address] [place] [address] Blood venous Normal Creatinine for GFR 0.93 mg/dL 0.70-1.30 mg/dL [facility]: [address] [place] [address] Blood venous Normal Glomerular Filtration Rate > 60.0 >60 [facility]: [address] [place] [address] Blood venous Normal Sodium Level 139 mEq/L 136-14 5 mEq/L [facility]: [address] [place] [address] Blood venous Normal Potassium Serum 4.7 mEq/L 3.5 -5.1 mEq/L [facility]: [address] [place] [address] Blood venous Normal Chloride Level 104 mEq/L 98-1 07 mEq/L [facility]: [address] [place] [address] Blood venous Normal Carbon Dioxide Level 29 mEq/L 21-32 mEq/L [facility]: [address] [facility] Blood venous Low Anion Gap 6 mEq/L 8-16 mEq/L [facility]: [address] [facility] Blood venous Normal Calcium Level 9.2 mg/dL 8.5-1 0.1 mg/dL [facility]: [address] [facility] Blood venous Normal AST/SGOT 13 U/L 7-37 U/L [facility]: [address] [facility] Blood venous Normal ALT/SGPT 28 U/L 12-78 U/L [facility]: [address] [facility] Blood venous Normal Alkaline Phosphatase 110 U/L 45-117 U/L [facility]: [address] [facility] Blood venous Normal Bilirubin,total 0.4 mg/dL 0.2 -1.0 mg/dL [facility]: [address] [facility] Blood venous Normal Total Protein 7.9 gm/dL 6.4-8 .2 gm/dL [facility]: [address] [facility] Blood venous Normal Albumin 4.0 gm/dL 3.2-5.2 gm/ dL [facility]: [address] [facility] Blood venous Normal Albumin/globulin Ratio 1.0 [facility]: [address] [facility] 05/12/2020 Lipid Panel, Blood Normal Triglycerides Lev el 99 mg/dL <150 mg/dL [facility]: 83 0 [facility] High Cholesterol Level 235 mg/dL <200 mg/ dL [facility]: [address] [facility] Normal HDL Cholesterol 55 mg/dL >40 mg/dL [facility]: [address] [facility] High LDL Cholesterol 160 mg/dL <100 mg/dL [facility]: [address] [facility] Normal Non-hdl-c 180 mg/dL [facility]: [address] [facility] Normal Cholesterol Risk Ratio 4.272 <5 Final [facility]: [address] [place] [address] 05/12/2020 TSH, Serum or Plasma Blood venous Normal Thyroid Stimulating Hormone 2.260 uIU/mL 0.358-3.740 uIU/mL Final [facility]: [address] [place] [address] 05/12/2020 Vitamin D, 25-Hydroxy, Total, Serum Blood venous Low Total 25(Oh) Vitamin D 17.5 NG/mL 30.0-100.0 NG/mL Final [facility]: [address] [place] [address] Past Encounters 10/26/2020 Hypothyroidism; Gastro-esophageal Reflux Disease with Esophagitis; Vitamin D Deficiency; Hyperlipidemia ROSA MARIA Che: [address] [address], Ph. 08/10/2020 Patient Informed - Test Result; Hyperlipidemia; Irritable Bowel Syndrome; Gastro-esophageal Reflux Disease with Esophagitis; Vitamin D Deficiency; Allergic Rhinitis; Hypothyroidism ROSA MARIA Che: [address] [facility] [address] [address], Ph. 07/26/2020 Hyperlipidemia; Hypothyroidism; Vitamin D Deficiency ROSA MARIA Che: [address] [facility] [address] [address], Ph. 06/07/2020 Gastro-esophageal Reflux Disease with Esophagitis; Hyperlipidemia; Vitamin D Deficiency; Chest Pain; Dyspnea ROSA MARIA Cedillo: [address] [facility] [address], [place] [address], Ph. 05/25/2020 Thom Alvarado MD: [address] [place] [address], Ph. 05/19/2020 Chest Pain; Gastro-esophageal Reflux Disease with Esophagitis; Generalized Anxiety Disorder; Hyperlipidemia; Hypothyroidism; Irritable Bowel Syndrome; Vitamin D Deficiency; Snoring Symptoms; Dyspnea on Exertion ROSA MARIA Cedillo: [address] [facility] [address], [place] [address], Ph. 05/12/2020 Hypothyroidism; Vitamin D Deficiency; Hyperlipidemia ROSA MARIA Cedillo: [address], [facility] [address], [place] [address], Ph. 03/10/2020 Covid-19 Thom Alvarado MD: [address] [facility], [facility] [address], [place] [address], Ph. Social History Tobacco Smoking Status Never [...]
--- OUTSIDE RECORDS SUMMARY | 2020-12-20 13:01 | CCD ---
Author Author [facility] Address Unknown Phone Unavailable Care Team Providers Care Fbi Investigator Name Role Phone Loree Alvarado MD Unavailable Unavailable Loree Alvarado MD Unavailable Unavailable Loree Alvarado MD Unavailable Unavailable Loree Alvarado MD Unavailable Unavailable Loree Alvarado MD Unavailable Unavailable Loree Alvarado MD Unavailable Unavailable Loree Alvarado MD Unavailable Unavailable Loree Alvarado MD Unavailable Unavailable Loree Alvarado MD Unavailable Unavailable Loree Alvarado MD Unavailable Unavailable Loree Alvarado MD Unavailable Unavailable Loree Alvarado MD Unavailable Unavailable Loree Alvarado MD Unavailable Unavailable Loree Alvarado MD Unavailable Unavailable Loree Alvarado MD Unavailable Unavailable Loree Alvarado MD Unavailable Unavailable Loree Alvarado MD Unavailable Unavailable Loree Alvarado MD Unavailable Unavailable Loree Alvarado MD Unavailable Unavailable Loree Alvarado MD Unavailable Unavailable Loree Alvarado MD Unavailable Unavailable Loree Alvarado MD Unavailable Unavailable Loree Alvarado MD Unavailable Unavailable Loree Alvarado MD Unavailable Unavailable Loree Alvarado MD Unavailable Unavailable Loree Alvarado MD Unavailable Unavailable Loree Alvarado MD Unavailable Unavailable Loree Alvarado MD Unavailable Unavailable Loree Alvarado MD Unavailable Unavailable Loree Alvarado MD Unavailable Unavailable Loree Alvarado MD Unavailable Unavailable Loree Alvarado MD Unavailable Unavailable Loree Alvarado MD Unavailable Unavailable Loree Alvarado MD Unavailable Unavailable Loree Alvarado MD Unavailable Unavailable Loree Alvarado MD Unavailable Unavailable AlvaradoLoree MD Unavailable Unavailable AlvaradoLoree MD Unavailable Unavailable AlvaradoLoree MD Unavailable Unavailable AlvaradoLoree MD Unavailable Unavailable Alvarado, Loree Tomas MD Unavailable Unavailable Alvarado, Loree Tomas MD Unavailable Unavailable Alvarado, Loree Tomas MD Unavailable Unavailable Alvarado, Loree Tomas MD Unavailable Unavailable AlvaradoLoree MD Unavailable Unavailable Loree Alvarado MD Unavailable Unavailable Loree Alvarado MD Unavailable Unavailable AlvaradoLoree MD Unavailable Unavailable AlvaradoLoree MD Unavailable Unavailable Alvarado, Loree Tomas MD Unavailable Unavailable Alvarado, Loree Tomas MD Unavailable Unavailable AlvaradoLoree MD Unavailable Unavailable Alvarado, Loree Tomas MD Unavailable Unavailable Alvarado, Loree Tomas MD Unavailable Unavailable AlvaradoLoree MD Unavailable Unavailable AlvaradoLoree MD Unavailable Unavailable Alvarado, Loree Tomas MD Unavailable Unavailable AlvaradoLoree MD Unavailable Unavailable Alvarado, Loree Tomas MD Unavailable Unavailable Alvarado, Loree Tomas MD Unavailable Unavailable Alvarado, Loree Tomas MD Unavailable Unavailable Alvarado, Loree Tomas MD Unavailable Unavailable Loree Alvarado MD Unavailable Unavailable Loree Alvarado MD Unavailable Unavailable Loree Alvarado MD Unavailable Unavailable Loree Alvarado MD Unavailable Unavailable AlvaradoLoree MD Unavailable Unavailable AlvaradoLoree MD Unavailable Unavailable AlvaradoLoree MD Unavailable Unavailable AlvaradoLoree MD Unavailable Unavailable AlvaradoLoree MD Unavailable Unavailable Loree Alvarado MD Unavailable Unavailable Loree Alvarado MD Unavailable Unavailable Loree Alvarado MD Unavailable Unavailable Loree Alvarado MD Unavailable Unavailable Loree Alvarado MD Unavailable Unavailable Loree Alvarado MD Unavailable Unavailable Loree Alvarado MD Unavailable Unavailable Loree Alvarado MD Unavailable Unavailable Loree Alvarado MD Unavailable Unavailable Loree Alvarado MD Unavailable Unavailable Loree Alvarado MD Unavailable Unavailable Loree Alvarado MD Unavailable Unavailable Loree Alvarado MD Unavailable Unavailable Loree Alvarado MD Unavailable Unavailable Loree Alvarado MD Unavailable Unavailable Loree Alvarado MD Unavailable Unavailable Loree Alvarado MD Unavailable Unavailable Loree Alvarado MD Unavailable Unavailable Loree Alvarado MD Unavailable Unavailable Loree Alvarado MD Unavailable Unavailable Loree Alvarado MD Unavailable Unavailable AlvaradoLoree MD Unavailable Unavailable CARNEY, SUN MANOLO RPA-C Unavailable Unavailable CARNEY, SUN MANOLO RPA-C Unavailable Unavailable CARNEY, SUN MANOLO RPA-C Unavailable Unavailable CARNEY, SUN MANOLO RPA-C Unavailable Unavailable CARNEY, SUN MANOLO RPA-C Unavailable Unavailable CARNEY, SUN MANOLO RPA-C Unavailable Unavailable CARNEY, SUN MANOLO RPA-C Unavailable Unavailable CARNEY, SUN MANOLO RPA-C Unavailable Unavailable CARNEY, SUN MANOLO RPA-C Unavailable Unavailable CARNEY, SUN MANOLO RPA-C Unavailable Unavailable CARNEY, SUN MANOLO RPA-C Unavailable Unavailable CARNEY, SUN MANOLO RPA-C Unavailable Unavailable CARNEY, SUN MANOLO RPA-C Unavailable Unavailable CARNEY, SUN MANOLO RPA-C Unavailable Unavailable CARNEY, SUN MANOLO RPA-C Unavailable Unavailable CARNEY, SUN MANOLO RPA-C Unavailable Unavailable CARNEY, SUN MANOLO RPA-C Unavailable Unavailable CARNEY, SUN MANOLO RPA-C Unavailable Unavailable CARNEY, SUN MANOLO RPA-C Unavailable Unavailable CARNEY, SUN MANOLO RPA-C Unavailable Unavailable CARNEY, SUN MANOLO RPA-C Unavailable Unavailable CARNEY, SUN MANOLO RPA-C Unavailable Unavailable CARNEY, SUN MANOLO RPA-C Unavailable Unavailable CARNEY, SUN MANOLO RPA-C Unavailable Unavailable CARNEY, SUN MANOLO RPA-C Unavailable Unavailable CARNEY, SUN MANOLO RPA-C Unavailable Unavailable CARNEY, SUN MANOLO RPA-C Unavailable Unavailable CARNEY, SUN MANOLO RPA-C Unavailable Unavailable CARNEY, SUN MANOLO RPA-C Unavailable Unavailable CARNEY, SUN MANOLO RPA-C Unavailable Unavailable CARNEY, SUN MANOLO RPA-C Unavailable Unavailable CARNEY, SUN MANOLO RPA-C Unavailable Unavailable CARNEY, SUN MANOLO RPA-C Unavailable Unavailable CARNEY, SUN MANOLO RPA-C Unavailable Unavailable CARNEY, SUN MANOLO RPA-C Unavailable Unavailable CARNEY, SUN MANOLO RPA-C Unavailable Unavailable CARNEY, SUN MANOLO RPA-C Unavailable Unavailable CARNEY, SUN MANOLO RPA-C Unavailable Unavailable CARNEY, SUN MANOLO RPA-C Unavailable Unavailable CARNEY, SUN MANOLO RPA-C Unavailable Unavailable CARNEY, SUN MANOLO RPA-C Unavailable Unavailable CARNEY, SUN MANOLO RPA-C Unavailable Unavailable CARNEY, SUN MANOLO RPA-C Unavailable Unavailable CARNEY, SUN MANOLO RPA-C Unavailable Unavailable CARNEY, SUN MANOLO RPA-C Unavailable Unavailable CARNEY, SUN MANOLO RPA-C Unavailable Unavailable CARNEY, SUN MANOLO RPA-C Unavailable Unavailable CARNEY, SUN MANOLO RPA-C Unavailable Unavailable CARNEY, SUN MANOLO RPA-C Unavailable Unavailable CARNEY, SUN MANOLO RPA-C Unavailable Unavailable CARNEY, SUN MANOLO RPA-C Unavailable Unavailable CARNEY, SUN MANOLO RPA-C Unavailable Unavailable CARNEY, SUN MANOLO RPA-C Unavailable Unavailable CARNEY, SUN MANOLO RPA-C Unavailable Unavailable CARNEY, SUN MANOLO RPA-C Unavailable Unavailable CARNEY, SUN MANOLO RPA-C Unavailable Unavailable CARNEY, SUN MANOLO RPA-C Unavailable Unavailable CARNEY, SUN MANOLO RPA-C Unavailable Unavailable CARNEY, SUN MANOLO RPA-C Unavailable Unavailable CARNEY, SUN MANOLO RPA-C Unavailable Unavailable CARNEY, SUN MANOLO RPA-C Unavailable Unavailable CARNEY, SUN MANOLO RPA-C Unavailable Unavailable CARNEY, SUN MANOLO RPA-C Unavailable Unavailable CARNEY, SUN MANOLO RPA-C Unavailable Unavailable CARNEY, SUN MANOLO RPA-C Unavailable Unavailable CARNEY, SUN MANOLO RPA-C Unavailable Unavailable CARNEY, SUN MANOLO RPA-C Unavailable Unavailable CARNEY, SUN MANOLO RPA-C Unavailable Unavailable CARNEY, SUN MANOLO RPA-C Unavailable Unavailable CARNEY, SUN MANOLO RPA-C Unavailable Unavailable CARNEY, SUN MANOLO RPA-C Unavailable Unavailable CARNEY, SUN MANOLO RPA-C Unavailable Unavailable CARNEY, SUN MANOLO RPA-C Unavailable Unavailable CARNEY, SUN MANOLO RPA-C Unavailable Unavailable CARNEY, SUN MANOLO RPA-C Unavailable Unavailable CARNEY, SUN MANOLO RPA-C Unavailable Unavailable CARNEY, SUN MANOLO RPA-C Unavailable Unavailable CARNEY, SUN MANOLO RPA-C Unavailable Unavailable CARNEY, SUN MANOLO RPA-C Unavailable Unavailable CARNEY, SUN MANOLO RPA-C Unavailable Unavailable CARNEY, SUN MANOLO RPA-C Unavailable Unavailable CARNEY, SUN MANOLO RPA-C Unavailable Unavailable CARNEY, SUN MANOLO RPA-C Unavailable Unavailable CARNEY, SUN MANOLO RPA-C Unavailable Unavailable CARNEY, SUN MANOLO RPA-C Unavailable Unavailable CARNEY, SUN MANOLO RPA-C Unavailable Unavailable COHEN, LILY Unavailable Unavailable COHEN, LILY Unavailable Unavailable COHEN, LILY Unavailable Unavailable COHEN, LILY Unavailable Unavailable COHEN, LILY Unavailable Unavailable COHEN, LILY Unavailable Unavailable COHEN, LILY Unavailable Unavailable COHEN, LILY Unavailable Unavailable COHEN, LILY Unavailable Unavailable COHEN, LILY Unavailable Unavailable COHEN, LILY Unavailable Unavailable COHEN, LILY Unavailable Unavailable COHEN, LILY Unavailable Unavailable COHEN, LILY Unavailable Unavailable COHEN, LILY Unavailable Unavailable COHEN, LILY Unavailable Unavailable COHEN, LILY Unavailable Unavailable COHEN, LILY Unavailable Unavailable COHEN, LILY Unavailable Unavailable COHEN, LILY Unavailable Unavailable COHEN, LILY Unavailable Unavailable COHEN, LILY Unavailable Unavailable COHEN, LILY Unavailable Unavailable COHEN, LILY Unavailable Unavailable COHEN, LILY Unavailable Unavailable COHEN, LILY Unavailable Unavailable COHEN, LILY Unavailable Unavailable Canelo DIETZ MD Unavailable Unavailable Canelo DIETZ MD Unavailable Unavailable Canelo DIETZ MD Unavailable Unavailable Canelo DIETZ MD Unavailable Unavailable Canelo DIETZ MD Unavailable Unavailable Canelo DIETZ MD Unavailable Unavailable Canelo DIETZ MD Unavailable Unavailable Canelo DIETZ MD Unavailable Unavailable Canelo DIETZ MD Unavailable Unavailable Canelo DIETZ MD Unavailable Unavailable Canelo DIETZ MD Unavailable Unavailable Canelo DIETZ MD Unavailable Unavailable Canleo DIETZ MD Unavailable Unavailable Canelo DIETZ MD Unavailable Unavailable Canelo DIETZ MD Unavailable Unavailable Canelo DIETZ MD Unavailable Unavailable Canelo DIETZ MD Unavailable Unavailable Canelo DIETZ MD Unavailable Unavailable Canelo DIETZ MD Unavailable Unavailable Canelo DIETZ MD Unavailable Unavailable Canelo DIETZ MD Unavailable Unavailable Canelo DIETZ MD Unavailable Unavailable Canelo DIETZ MD Unavailable Unavailable Canelo DIETZ MD Unavailable Unavailable Canelo DIETZ MD Unavailable Unavailable Canelo DIETZ MD Unavailable Unavailable Canelo DIETZ MD Unavailable Unavailable Canelo DIETZ MD Unavailable Unavailable Canelo DIETZ MD Unavailable Unavailable Canelo DIETZ MD Unavailable Unavailable Canelo DIETZ MD Unavailable Unavailable MIRELA, Canelo METZ MD Unavailable Unavailable Canelo DIETZ MD Unavailable Unavailable URENA, M MONICA PA Unavailable Unavailable URENA, M MONICA PA Unavailable Unavailable URENA, M MONICA PA Unavailable Unavailable URENA, M MONICA PA Unavailable Unavailable URENA, M MONICA PA Unavailable Unavailable URENA, M MONICA PA Unavailable Unavailable URENA, M MONICA PA Unavailable Unavailable URENA, M MONICA PA Unavailable Unavailable URENA, M MONICA PA Unavailable Unavailable URENA, M MONICA PA Unavailable Unavailable URENA, M MONICA PA Unavailable Unavailable URENA, M MONICA PA Unavailable Unavailable URENA, M MONICA PA Unavailable Unavailable URENA, M MONICA PA Unavailable Unavailable URENA, M MONICA PA Unavailable Unavailable URENA, M MONICA PA Unavailable Unavailable URENA, M MONICA PA Unavailable Unavailable URENA, M MONICA PA Unavailable Unavailable URENA, M MONICA PA Unavailable Unavailable URENA, M MONICA PA Unavailable Unavailable URENA, M MONICA PA Unavailable Unavailable URENA, M MONICA PA Unavailable Unavailable URENA, M MONICA PA Unavailable Unavailable URENA, M MONICA PA Unavailable Unavailable URENA, M MONICA PA Unavailable Unavailable URENA, M MONICA PA Unavailable Unavailable URENA, M MONICA PA Unavailable Unavailable URENA, M MONICA PA Unavailable Unavailable URENA, M MONICA PA Unavailable Unavailable URENA, M MONICA PA Unavailable Unavailable URENA, M MONICA PA Unavailable Unavailable URENA, M MONICA PA Unavailable Unavailable URENA, M MONICA PA Unavailable Unavailable URENA, M MONICA PA Unavailable Unavailable URENA, M MONICA PA Unavailable Unavailable Re-disclosure Warning The records that you are about to access may contain information from federally-assisted alcohol or drug abuse programs. If such information is present, then the following federally mandated warning applies: This information has been disclosed to you from records protected by federal confidentiality rules (42 CFR part 2). The federal rules prohibit you from making any further disclosure of this information unless further disclosure is expressly permitted by the written consent of the person to whom it pertains or as otherwise permitted by 42 CFR part 2. A general authorization for the release of medical or other information is NOT sufficient for this purpose. The Federal rules restrict any use of the information to criminally investigate or prosecute any alcohol or drug abuse patient.The records that you are about to access may contain highly sensitive health information, the redisclosure of which is protected by Article 27-F of the [place] Public Health law. If you continue you may have access to information: Regarding HIV / AIDS; Provided by facilities licensed or operated by the [place] [facility] Office of Mental Health; or Provided by the [place] [facility] Office for People With Developmental Disabilities. If such information is present, then the following [place] [facility] mandated warning applies: This information has been disclosed to you from confidential records which are protected by state law. State law prohibits you from making any further disclosure of this information without the specific written consent of the person to whom it pertains, or as otherwise permitted by law. Any unauthorized further disclosure in violation of state law may result in a fine or senior care sentence or both. A general authorization for the release of medical or other information is NOT sufficient authorization for further disc losure. Allergies and Adverse Reactions Type Description Substance Reaction Status Data Source(s ) Allergy to substance Moderate to Severe Gemfibrozil Dizziness [place] ([facility]) Allergy to substance Moderate atorvastatin Other AT [facility]) Allergy to substance Moderate atorvastatin Other AT [facility]) Allergy to substance Moderate atorvastatin Other AT [facility]) Allergy to substance Moderate atorvastatin Other AT [facility]) Allergy to substance Allergy to substance Allergy to substance [place] ([facility]) Encounters Encounter Providers Location Date Indications Data Source(s ) ROSA MARIA Che: [address] [facility] [address] [address], Ph. Attender: MANOLO CRANE [facility] Medical 12/14/2020 12:00:00 AM EDT [place] ([facility]) Outpatient Attender: LASHAY Aguilar/[place]/Leno jones/Reindl 11/17/2020 10:00:00 AM EDT [place] ([facility]) Outpatient Attender: MONICA Aguilar/[place]/Humberto/Rein dl 11/08/2020 09:30:00 AM EDT [facility] ([facility]) Manolo Carney RPA-C: [address], [place] [address], Ph. Attender: MANOLO CARNEY RPA-C [facility] Medical 11/02/2020 12:00:00 AM EDT [place] ([facility]) Manolo Carney RPA-C: [address], [place] [address], Ph. Attender: MANOLO CARNEY RPA-Anais [facility] Medical 11/02/2020 12:00:00 AM EDT [place] ([facility]) Manolo Carney RPA-C: [address], [place] [address], Ph. Attender: MANOLO CARNEY RPA-C [facility] Medical 10/26/2020 12:00:00 AM EDT [place] ([facility]) Manolo Carney RPA-C: [address], [place] [address], Ph. Attender: MANOLO CARNEY RPA-C [facility] Medical 10/26/2020 12:00:00 AM EDT [place] ([facility]) Manolo Carney RPA-C: [address], [place] [address], Ph. Attender: MANOLO CARNEY RPA-C [facility] Medical 10/26/2020 12:00:00 AM EDT [place] ([facility]) Outpatient Attender: MONICA Aguilar/[place]/Humberto/Elizabeth luis 09/27/2020 09:30:00 AM EDT [facility] ([facility]) Outpatient Attender: MONICA Aguilar/[place]/Humberto/Elizabeth dl 08/11/2020 10:30:00 AM EDT [place] ([facility], ) Manolo Carney RPA-C: [address], [place] [address], Ph. Attender: MANOLO CARNEY RPA-C [facility] Medical 08/10/2020 12:00:00 AM EDT [place] ([facility]) Manolo Carney RPA-C: [address], [place] [address], Ph. Attender: MANOLO CARNEY RPA-C [facility] Medical 08/10/2020 12:00:00 AM EDT [place] ([facility]) Manolo Carney RPA-C: [address], [place] [address], Ph. Attender: MANOLO CARNEY RPA-C [facility] Medical 08/10/2020 12:00:00 AM EDT [place] ([facility]) Manolo Carney RPA-C: [address], [place] [address], Ph. Attender: MANOLO CARNEY RPA-C [facility] Medical 08/10/2020 12:00:00 AM EDT [facility] ([facility]) Manolo Carney RPA-C: [address], [place] [address], Ph. Attender: MANOLO CARNEY RPA-C [facility] Medical 07/26/2020 12:00:00 AM EDT [place] ([facility]) Manolo Carney RPA-C: [address], [place] [address], Ph. Attender: MANOLO CARNEY RPA-C [facility] Medical 07/26/2020 12:00:00 AM EDT [place] ([facility]) Manolo Carney RPA-C: [address], [place] [address], Ph. Attender: MANOLO CARNEY RPA-C [facility] Medical 07/26/2020 12:00:00 AM EDT [place] ([facility]) Manolo Carney RPA-C: [address], [place] [address], Ph. Attender: MANOLO CARNEY RPA-C [facility] Medical 07/26/2020 12:00:00 AM EDT [place] ([facility]) Manolo Carney RPA-C: [address], [place] [address], Ph. Attender: MANOLO CARNEY RPA-C [facility] Medical 07/26/2020 12:00:00 AM EDT [place] ([facility]) Lily Cohen RPA-C: [address], [place] [address], Ph. Attender: LILY COHEN [facility] Medical 06/07/2020 12:00:00 AM EDT [facility] ([facility]) Lily Cohen RPA-C: [address], [place] [address], Ph. Attender: LILY COHEN [facility] Medical 06/07/2020 12:00:00 AM EDT [place] ([facility]) Lilysimba Cohen RPA-C: [address], [place] [address], Ph. Attender: LILY [facility] Medical 06/07/2020 12:00:00 AM EDT [place] ([facility]) Lilysimba Cohen RPA-C: [address], [place] [address], Ph. Attender: LILY COHEN [facility] Medical 06/07/2020 12:00:00 AM EDT [place] ([facility]) Lily Cohen RPA-C: [address], [place] [address], Ph. Attender: LILYSIMBA COHEN [facility] Medical 06/07/2020 12:00:00 AM EDT [place] ([facility]) Lilysimba Cohen RPA-C: [address], [place] [address], Ph. Attender: LILYSIMBA COHEN [facility] Medical 06/07/2020 12:00:00 AM EDT [place] ([facility]) Thom Alvarado MD: [address] [place] [address], Ph. Attender: Thom Alvarado MD [facility] Medical 05/25/2020 12:00:00 AM EDT [place] ([facility]) Thom Alvarado MD: [address] [place] [address], Ph. Attender: Thom Alvarado MD [facility] Medical 05/25/2020 12:00:00 AM EDT [facility] ([facility]) Thom Alvarado MD: [address] [place] [address], Ph. Attender: Thom Alvarado MD [facility] Medical 05/25/2020 12:00:00 AM EDT [place] ([facility]) Thom Alvarado MD: [address] [place] [address], Ph. Attender: Thom Alvarado MD [facility] Medical 05/25/2020 12:00:00 AM EDT [place] ([facility]) Thom Alvarado MD: [address] [place] [address], Ph. Attender: Thom Alvarado MD [facility] Medical 05/25/2020 12:00:00 AM EDT [place] ([facility]) Thom Alvarado MD: [address] [place] [address], Ph. Attender: Thom Alvarado MD [facility] Medical 05/25/2020 12:00:00 AM EDT [place] ([facility]) Thom Alvarado MD: [address] [place] [address], Ph. Attender: Thom Alvarado MD [facility] Medical 05/25/2020 12:00:00 AM EDT [place] ([facility]) Lily Cohen RPA-C: [address], [place] [address], Ph. Attender: LILY COHEN [facility] Medical 05/19/2020 12:00:00 AM EDT [place] ([facility]) JENNIFER CedilloC: [address], [place] [address], Ph. Attender: LILY COHEN [facility] Medical 05/19/2020 12:00:00 AM EDT [place] ([facility]) JENNIFER CedilloC: [address], [place] [address], Ph. Attender: LILY COHEN [facility] Medical 05/19/2020 12:00:00 AM EDT [place] ([facility]) JENNIFER CedilloC: [address], [place] [address], Ph. Attender: LILY COHEN [facility] Medical 05/19/2020 12:00:00 AM EDT [place] ([facility]) JENNIFER CedilloC: [address], [place] [address], Ph. Attender: LILY COHEN [facility] Medical 05/19/2020 12:00:00 AM EDT [place] ([facility]) JENNIFER CedilloC: [address], [place] [address], Ph. Attender: LILY COHEN [facility] Medical 05/19/2020 12:00:00 AM EDT [place] ([facility]) JENNIFER CedilloC: [address], [place] [address], Ph. Attender: LILY COHEN [facility] Medical 05/19/2020 12:00:00 AM EDT [place] ([facility]) Lily Cohen, RPA-C: [address], [place] [address], Ph. Attender: LILY COHEN [facility] Medical 05/19/2020 12:00:00 AM EDT [place] ([facility]) Lily Cohen RPA-C: [address], [place] [address], Ph. Attender: LILY COHEN [facility] Medical 05/12/2020 12:00:00 AM EDT [place] ([facility]) Lily Cohen RPA-C: [address], [place] [address], Ph. Attender: LILY COHEN [facility] Medical 05/12/2020 12:00:00 AM EDT [place] ([facility]) Lily Cohen RPA-C: [address], [place] [address], Ph. Attender: LILY [facility] Medical 05/12/2020 12:00:00 AM EDT [place] ([facility]) Lily Cohen RPA-C: [address], [place] [address], Ph. Attender: LILY [facility] Medical 05/12/2020 12:00:00 AM EDT [place] ([facility]) Lily Cohen RPA-C: [address], [place] [address], Ph. Attender: LILY [facility] Medical 05/12/2020 12:00:00 AM EDT [place] ([facility]) Lilysimba Cohen RPA-C: [address], [place] [address], Ph. Attender: LILY COH[facility] Medical 05/12/2020 12:00:00 AM EDT [place] ([facility]) Lily Cohen RPA-C: [address], [place] [address], Ph. Attender: LILY COHEN [facility] Medical 05/12/2020 12:00:00 AM EDT [place] ([facility]) Lily Cohen RPA-C: [address], [place] [address], Ph. Attender: LILY COHEN [facility] Medical 05/12/2020 12:00:00 AM EDT [place] ([facility]) Lily Cohen RPA-C: [address], [place] [address], Ph. Attender: LILY COHEN [facility] Medical 05/12/2020 12:00:00 AM EDT [place] ([facility]) Thom Alvarado MD: [address], [place] [address], Ph. Attender: Thom Alvarado MD [facility] Medical 03/10/2020 12:00:00 AM EST [place] ([facility]) Thom Alvarado MD: [address], [place] [address], Ph. Attender: Thom Alvarado MD [facility] Medical 03/10/2020 12:00:00 AM EST [place] ([facility]) Thom Alvarado MD: [address], [place] [address], Ph. Attender: Thom Alvarado MD [facility] Medical 03/10/2020 12:00:00 AM EST [place] ([facility]) Thom Alvarado MD: [address], [place] [address], Ph. Attender: Thom Alvarado MD [facility] Medical 03/10/2020 12:00:00 AM EST [place] ([facility]) Thom Alvarado MD: [address], [place] [address], Ph. Attender: Thom Alvarado MD [facility] Medical 03/10/2020 12:00:00 AM EST [place] ([facility]) Thom Alvarado MD: [address], [place] [address], Ph. Attender: Thmo Alvarado MD [facility] Medical 03/10/2020 12:00:00 AM EST [place] ([facility]) Thom Alvarado MD: [address], [place] [address], Ph. Attender: Thom Alvarado MD [facility] Medical 03/10/2020 12:00:00 AM EST [place] ([facility]) Thom Alvarado MD: [address], [place] [address], Ph. Attender: Thom Alvarado MD [facility] Medical 03/10/2020 12:00:00 AM EST [place] ([facility]) Thom Alvarado MD: [address], [place] [address], Ph. Attender: Thom Alvarado MD [facility] Medical 03/10/2020 12:00:00 AM EST [place] ([facility]) Thom Alvarado MD: [address], [place] [address], Ph. Attender: Thom Alvarado MD [facility] Medical 03/10/2020 12:00:00 AM EST [place] ([facility]) JENNIFER CheC: [address], [place] [address], Ph. Attender: [facility] Medical 01/06/2020 12:00:00 AM EST [place] ([facility]) Outpatient Attender: MANOLO RODRIGUEZC [facility] 11/04/2019 04:49:02 PM EDT [facility] Outpatient Attender: MANOLO RODRIGUEZC [facility] 11/04/2019 04:49:01 PM EDT [facility] Outpatient Attender: MANOLO RODRIGUEZC [facility] 10/22/2019 08:21:01 AM EDT [facility] Outpatient Attender: MANOLO RODRIGUEZC [facility] 10/22/2019 08:21:00 AM EDT [facility] Medications Medication Brand Name Start Date Product Form Dose Route Admi nistrative Instructions Pharmacy Instructions Status Indications Reaction Description Data Source(s) 1 gram 11/19/2020 12:00:00 AM EDT tablet 90 TAKE ONE TABLET BY MOUTH THREE TIMES A DAY 30 MINUTES BEFORE MEALS TAKE ONE TABLET BY MOUTH THREE TIMES A D AY 30 MINUTES BEFORE MEALS SOLD: 11/20/2020 [facility] CPAP 11/18/2020 12:00:00 AM EDT active [facility] ([facility], ) Psyllium 14.2 MG/ML Oral Suspension [Metamucil] Metamucil 11/17/2020 12:00:00 AM EDT ORAL active [facility] ([facility], ) Sucralfate 100 MG/ML Oral Suspension Sucralfate 11/17/2020 12:00:00 A M EDT ORAL active [facility] ([facility], ) 200 ACTUAT Albuterol 0.09 MG/ACTUAT Metered Dose Inhal er [Ventolin] Ventolin HFA 11/08/2020 12:00:00 AM EDT RESPIRATORY active [facility] ([facility], ) Airduo Respiclick 232/14 Airduo Respiclick 232/14 11/08/2020 12:00: 00 AM EDT RESPIRATORY active [facility] ([facility], ) 90 mcg/actuation 11/08/2020 12:00:00 AM EDT HFA aerosol inha ler 18 INHALE TWO PUFFS BY MOUTH FOUR TIMES A DAY NEEDED INHALE TWO PUFFS BY MOUTH FOUR TIMES A DAY NEEDED SOLD: 11/09/2020 [facility] 60 ACTUAT Fluticasone propionate 0.232 M G/ACTUAT / Salmeterol xinafoate 0.014 MG/ACTUAT Dry Powder Inhaler 232-14 mcg/actuation FLUTICASONE PROPION/SALMETEROL 11/08/2020 12:00:00 AM EDT aerosol powdr breath activated 1 INHALE ONE PUFF BY MOUTH TWICE A DAY INHALE ONE PUFF BY MOUTH TWICE A DAY SOLD: 12/18/2020 [facility] 60 ACTUAT Fluticasone propionate 0.232 M G/ACTUAT / Salmeterol xinafoate 0.014 MG/ACTUAT Dry Powder Inhaler 232-14 mcg/actuation FLUTICASONE PROPION/SALMETEROL 11/08/2020 12:00:00 AM EDT aerosol powdr breath activated 1 INHALE ONE PUFF BY MOUTH TWICE A DAY INHALE ONE PUFF BY MOUTH TWICE A DAY SOLD: 11/09/2020 [facility] 600 mg 11/03/2020 12:00:00 AM EDT tablet 30 TAKE ONE TABLET BY MOUTH ONCE DAILY TAKE ONE TABLET BY MOUTH ONCE DAILY SOLD: 11/09/2020 [facility] 50 mcg (2,000 unit) 10/12/2020 12:00:00 AM EDT capsule 30 TAKE ONE CAPSULE BY MOUTH DAILY WITH DINNER TAKE ONE CAPSULE BY MOUTH DAILY WITH DINNER SOLD: 11/20/2020 [facility] 50 mcg (2,000 unit) 10/12/2020 12:00:00 AM EDT capsule 30 TAKE ONE CAPSULE BY MOUTH DAILY WITH DINNER TAKE ONE CAPSULE BY MOUTH DAILY WITH DINNER SOLD: 10/17/2020 [facility] 875 mg 08/17/2020 12:00:00 AM EDT tablet 20 TAKE ONE TABLET BY MOUTH EVERY 12 HOURS FOR 10 DAYS TAKE ONE TABLET BY MOUTH EVERY 12 HOURS FOR 10 DAYS SO LD: 08/17/2020 [facility] 10 mg 08/11/2020 12:00:00 AM EDT tablet 30 TAKE ONE TABLET BY MOUTH ONCE DAILY TAKE ONE TABLET BY MOUTH ONCE DAILY SOLD: 08/12/2020 [facility] 50 mcg 07/24/2020 12:00:00 AM EDT tablet 90 TAKE ONE TABLET BY MOUTH EVERY DAY TAKE ONE TABLET BY MOUTH EVERY DAY SOLD: 07/26/2020 [facility] 50 mcg 07/24/2020 12:00:00 AM EDT tablet 90 TAKE ONE TABLET BY MOUTH EVERY DAY TAKE ONE TABLET BY MOUTH EVERY DAY SOLD: 10/28/2020 [facility] 40 mg 07/23/2020 12:00:00 AM EDT capsule,delayed release (DR/EC) 60 TAKE ONE CAPSULE BY MOUTH TWICE A DAY TAKE ONE CAPSULE BY MOUTH TWICE A DAY SOLD: 07/26/2020 [facility] 40 mg 07/23/2020 12:00:00 AM EDT capsule,delayed release (DR/EC) 60 TAKE ONE CAPSULE BY MOUTH TWICE A DAY TAKE ONE CAPSULE BY MOUTH TWICE A DAY SOLD: 11/16/2020 [facility] atorvastatin 10 MG Oral Tablet atorvasta tin 10 mg tablet TAKE ONE TABLET BY MOUTH EVERY DAY atorvastatin 10 mg tablet TAKE ONE TABLET BY MOUTH 07/16/2020 12:00:00 AM EDT completed atorvastatin 10 MG Oral Tablet [place] ([facility]) atorvastatin 10 MG Oral Tablet atorvasta tin 10 mg tablet TAKE ONE TABLET BY MOUTH EVERY DAY atorvastatin 10 mg tablet TAKE ONE TABLET BY MOUTH 07/16/2020 12:00:00 AM EDT completed atorvastatin 10 MG Oral Tablet [facility] ([facility]) atorvastatin 10 MG Oral Tablet atorvasta tin 10 mg tablet TAKE ONE TABLET BY MOUTH EVERY DAY atorvastatin 10 mg tablet TAKE ONE TABLET BY MOUTH ANABEL28/2021 12:00:00 AM EDT completed atorvastatin 10 MG Oral Tablet [facility] ([facility] er) atorvastatin 10 MG Oral Tablet atorvasta tin 10 mg tablet TAKE ONE TABLET BY MOUTH EVERY DAY atorvastatin 10 mg tablet TAKE ONE TABLET BY MOUTH 07/16/2020 12:00:00 AM EDT completed atorvastatin 10 MG Oral Tablet [facility] ([facility]) atorvastatin 10 MG Oral Tablet atorvasta tin 10 mg tablet TAKE ONE TABLET BY MOUTH EVERY DAY atorvastatin 10 mg tablet TAKE ONE TABLET BY MOUTH 07/16/2020 12:00:00 AM EDT completed atorvastatin 10 MG Oral Tablet [facility] ([facility]) 50 mcg 06/25/2020 12:00:00 AM EDT tablet 30 TAKE ONE TABLET BY MOUTH EVERY DAY TAKE ONE TABLET BY MOUTH EVERY DAY SOLD: 06/25/2020 [facility] 40 mg 05/22/2020 12:00:00 AM EDT capsule,delayed release (DR/EC) 60 TAKE ONE CAPSULE BY MOUTH TWICE A DAY TAKE ONE CAPSULE BY MOUTH TWICE A DAY SOLD: 06/21/2020 [facility] 40 mg 05/22/2020 12:00:00 AM EDT capsule,delayed release (DR/EC) 60 TAKE ONE CAPSULE BY MOUTH TWICE A DAY TAKE ONE CAPSULE BY MOUTH TWICE A DAY SOLD: 05/24/2020 [facility] atorvastatin 10 MG Oral Tablet ATORVASTATIN CALCIUM 05/20/2020 1 2:00:00 AM EDT tablet 30 TAKE ONE TABLET BY MOUTH EVERY D AY TAKE ONE TABLET BY MOUTH EVERY DAY SOLD: 06/21/2020 [facility] 50 mcg (2,000 unit) 05/20/2020 12:00:00 AM EDT capsule 30 TAKE ONE CAPSULE BY MOUTH EVERY DAY WITH DINNER TAKE ONE CAPSULE BY MOUTH EVERY DAY WITH DINNER SOLD: 08/10/2020 [facility] 50 mcg (2,000 unit) 05/20/2020 12:00:00 AM EDT capsule 30 TAKE ONE CAPSULE BY MOUTH EVERY DAY WITH DINNER TAKE ONE CAPSULE BY MOUTH EVERY DAY WITH DINNER SOLD: 05/20/2020 [facility] atorvastatin 10 MG Oral Tablet ATORVASTATIN CALCIUM 05/20/2020 1 2:00:00 AM EDT tablet 30 TAKE ONE TABLET BY MOUTH EVERY D AY TAKE ONE TABLET BY MOUTH EVERY DAY SOLD: 05/20/2020 [facility] 50 mcg (2,000 unit) 05/20/2020 12:00:00 AM EDT capsule 30 TAKE ONE CAPSULE BY MOUTH EVERY DAY WITH DINNER TAKE ONE CAPSULE BY MOUTH EVERY DAY WITH DINNER SOLD: 06/21/2020 [facility] cetirizine hydrochloride 10 MG Oral Tabl et cetirizine 10 mg tablet TAKE ONE TABLET BY MOUTH EVERY DAY FOR 14 DAYS cetirizine 10 mg tablet TAKE ONE TABLET BY MOUTH EVERY DAY FOR 14 DAYS 05/19/2020 12:00:00 AM EDT completed cetirizine hydrochloride 10 MG Oral Tablet [facility] ([facility]) cetirizine hydrochloride 10 MG Oral Tabl et cetirizine 10 mg tablet TAKE ONE TABLET BY MOUTH EVERY DAY FOR 14 DAYS cetirizine 10 mg tablet TAKE ONE TABLET BY MOUTH EVERY DAY FOR 14 DAYS 05/19/2020 12:00:00 AM EDT completed cetirizine hydrochloride 10 MG Oral Tablet [facility] ([facility]) cetirizine hydrochloride 10 MG Oral Tabl et cetirizine 10 mg tablet TAKE ONE TABLET BY MOUTH EVERY DAY FOR 14 DAYS cetirizine 10 mg tablet TAKE ONE TABLET BY MOUTH EVERY DAY FOR 14 DAYS 05/19/2020 12:00:00 AM EDT completed cetirizine hydrochloride 10 MG Oral Tablet [facility] ([facility]) cetirizine hydrochloride 10 MG Oral Tabl et cetirizine 10 mg tablet TAKE ONE TABLET BY MOUTH EVERY DAY FOR 14 DAYS cetirizine 10 mg tablet TAKE ONE TABLET BY MOUTH EVERY DAY FOR 14 DAYS 05/19/2020 12:00:00 AM EDT completed cetirizine hydrochloride 10 MG Oral Tablet [facility] ([facility]) 40 mcg/actuation 05/19/2020 12:00:00 AM EDT HFA aerosol rema th activated 10 INHALE 2 PUFFS BY MOUTH TWO TIMES A DAY INHALE 2 PUFFS BY MOUTH TWO TIMES A DAY SOLD: 05/20/2020 [facility] 40 mcg/actuation 03/10/2020 12:00:00 AM EST HFA aerosol rema th activated 10 INHALE 2 PUFFS BY MOUTH TWO TIMES A DAY INHALE 2 PUFFS BY MOUTH TWO TIMES A DAY SOLD: 03/10/2020 [facility] 2.5 mg /3 mL (0.083 %) 03/01/2020 12:00:00 AM EST solu tion for nebulization 75 INHALE THE CONTENTS OF ONE VIAL VIA NEBU LIZER THREE TIMES A DAY INHALE THE CONTENTS OF ONE VIAL VIA NEBULIZER THREE TIMES A DAY SOLD: 03/01/2020 [facility] 90 mcg/actuation 03/01/2020 12:00:00 AM EST HFA aerosol inha ler 18 INHALE TWO PUFFS BY MOUTH EVERY 4 HOURS INHALE TWO PUFFS BY MOUTH EVERY 4 HOURS SOLD: 03/01/2020 [facility] 10 mg 02/27/2020 12:00:00 AM EST tablet 49 TAKE 6 TABLETS BY MOUTH DAILY FOR 3 DAYS THEN 5 TABLETS DAILY X 2 DAYS, 4 TABLETS DAILY X 2 DAYS, 3 TABLETS DAILY X 2 DAYS, 2 TABLETS DAILY X 2 DAYS, 1 TABLET DAILY X 3 DAYS TAKE 6 TABLETS BY MOUTH DAILY FOR 3 DAYS THEN 5 TABLETS DAILY X 2 DAYS, 4 TABLETS DAILY X 2 DAYS, 3 TABLETS DAILY X 2 DAYS, 2 TABLETS DAILY X 2 DAYS, 1 TABLET DAILY X 3 DAYS SOLD: 02/27/2020 [facility] 10 mg 02/11/2020 12:00:00 AM EST tablet 14 TAKE ONE TABLET BY MOUTH EVERY DAY FOR 14 DAYS TAKE ONE TABLET BY MOUTH EVERY DAY FOR 14 DAYS SOLD: [facility] 10 mg 01/19/2020 12:00:00 AM EST capsule 90 TAKE ONE CAPSULE BY MOUTH UP TO THREE TIMES A DAY TAKE ONE CAPSULE BY MOUTH UP TO THREE TIMES A DAY SOLD : 08/12/2020 [facility] 10 mg 01/19/2020 12:00:00 AM EST capsule 90 TAKE ONE CAPSULE BY MOUTH UP TO THREE TIMES A DAY TAKE ONE CAPSULE BY MOUTH UP TO THREE TIMES A DAY SOLD : 06/21/2020 [facility] 50 mcg 12/26/2019 12:00:00 AM EST tablet 90 TAKE 1 TABLET BY MOUTH EVERY DAY TAKE 1 TABLET BY MOUTH EVERY DAY SOLD: 12/26/2019 [facility] 50 mcg 12/26/2019 12:00:00 AM EST tablet 90 TAKE 1 TABLET BY MOUTH EVERY DAY TAKE 1 TABLET BY MOUTH EVERY DAY SOLD: 03/28/2020 [facility] 0.005 % 10/23/2019 12:00:00 AM EDT drops 2 INSTILL ONE DROP IN EACH EYE ONCE DAILY DIRECTED INSTILL ONE DROP IN EACH EYE ONCE DAILY DIRECTED SO LD: 02/11/2020 [facility] 0.005 % 10/23/2019 12:00:00 AM EDT drops 2 INSTILL ONE DROP IN EACH EYE ONCE DAILY DIRECTED INSTILL ONE DROP IN EACH EYE ONCE DAILY DIRECTED SO LD: 12/09/2019 [facility] 0.005 % 10/23/2019 12:00:00 AM EDT drops 2 INSTILL ONE DROP IN EACH EYE ONCE DAILY DIRECTED INSTILL ONE DROP IN EACH EYE ONCE DAILY DIRECTED SO LD: 10/23/2019 [facility] 40 mg 10/13/2019 12:00:00 AM EDT capsule,delayed release (DR/EC) 60 TAKE ONE CAPSULE BY MOUTH TWICE A DAY TAKE ONE CAPSULE BY MOUTH TWICE A DAY SOLD: 03/14/2020 [facility] 10 mg 10/13/2019 12:00:00 AM EDT capsule 30 TAKE ONE CAPSULE BY MOUTH UP TO THREE TIMES A DAY TAKE ONE CAPSULE BY MOUTH UP TO THREE TIMES A DAY SOLD : 12/13/2019 [facility] 40 mg 10/13/2019 12:00:00 AM EDT capsule,delayed release (DR/EC) 60 TAKE ONE CAPSULE BY MOUTH TWICE A DAY TAKE ONE CAPSULE BY MOUTH TWICE A DAY SOLD: 12/13/2019 [facility] 10 mg 10/13/2019 12:00:00 AM EDT capsule 30 TAKE ONE CAPSULE BY MOUTH UP TO THREE TIMES A DAY TAKE ONE CAPSULE BY MOUTH UP TO THREE TIMES A DAY SOLD : 11/15/2019 [facility] 50 mcg 05/17/2019 12:00:00 AM EDT tablet 30 TAKE ONE TABLET BY MOUTH EVERY DAY TAKE ONE TABLET BY MOUTH EVERY DAY SOLD: 10/26/2019 [facility] 50 mcg 05/17/2019 12:00:00 AM EDT tablet 30 TAKE ONE TABLET BY MOUTH EVERY DAY TAKE ONE TABLET BY MOUTH EVERY DAY SOLD: 11/24/2019 [facility] Folic Acid 1 MG Oral Tablet folic acid 1 mg tablet TAKE ONE TABLET BY MOUTH EVERY DAY folic acid 1 mg tablet TAKE ONE TABLET BY MOUTH EVERY DAY completed folic acid 1 MG Oral Tablet ATHKatya [facility] ([facility]) Prednisone 10 MG Oral Tablet prednisone 10 mg tablet TAKE 6 TABLETS BY MOUTH DAILY FOR 3 DAYS THEN 5 TABLETS DAILY X 2 DAYS 4 TABLETS DAILY X 2 DAYS 3 TABLETS DAILY X 2 DAYS 2 TABLETS DAILY prednisone 10 mg tablet TAKE 6 TABLETS BY MOUTH DAILY FOR 3 DAYS THEN 5 TABLETS DAILY X 2 DAYS 4 TABLETS DAILY X 2 DAYS 3 TABLETS DAILY X 2 DAYS 2 TABLETS DAILY completed prednisone 10 MG Oral Tablet [facility] ([facility]) Oseltamivir 75 MG Oral Capsule oseltamivir 75 mg capsu le oseltamivir 75 mg capsule completed oseltamivir 75 MG Oral Capsule [place]) Amoxicillin 875 MG Oral Tablet amoxicill in 875 mg tablet TAKE ONE TABLET BY MOUTH EVERY 12 HOURS FOR 10 DAYS amoxicillin 875 mg tablet TAKE ONE TABLE T BY MOUTH EVERY 12 HOURS FOR 10 DAYS compl eted amoxicillin 875 MG Oral Tablet [place] ([facility]) Oseltamivir 75 MG Oral Capsule oseltamivir 75 mg capsu le oseltamivir 75 mg capsule completed oseltamivir 75 MG Oral Capsule [place] ([facility]) Breo Ellipta One INH once daily. complet ed Breo Ellipta [place] ([facility]) albuterol sulfate HFA 90 mcg/actuation aerosol inhaler [id number] completed [id number] 200 ACTUAT albuterol 0.09 MG/ACTUAT Metered Dose Inhaler [place] ([facility]) Folic Acid 1 MG Oral Tablet folic acid 1 mg tablet TAKE ONE TABLET BY MOUTH EVERY DAY folic acid 1 mg tablet TAKE ONE TABLET BY MOUTH EVERY DAY completed folic acid 1 MG Oral Tablet [facility] ([facility]) Azithromycin 250 MG Oral Tablet azithrom ycin 250 mg tablet TAKE TWO TABLETS BY MOUTH AT ONCE ON THE FIRST DAY THEN TAKE ONE DAILY THEREAFTER azithromycin 250 mg tablet TAKE TWO TABLETS BY MOUTH AT ONCE ON THE FIRST DAY THEN TAKE ONE DAILY THEREAFTER completed azithromyc in 250 MG Oral Tablet [place] ([facility]) Gemfibrozil 600 MG Oral Tablet gemfibroz il 600 mg tablet TAKE ONE TABLET BY MOUTH ONCE DAILY gemfibrozil 600 mg tablet TAKE ONE TABLET BY MOUTH ONC E DAILY completed gemfibrozil 60 0 MG Oral Tablet [facility] ([facility]) vitamin d3 50 mcg (1999 ut) caps completed vitamin d3 50 mcg (1999 ut) caps [place] ([facility]) Azithromycin 250 MG Oral Tablet azithrom ycin 250 mg tablet TAKE TWO TABLETS BY MOUTH AT ONCE ON THE FIRST DAY THEN TAKE ONE DAILY THEREAFTER azithromycin 250 mg tablet TAKE TWO TABLETS BY MOUTH AT ONCE ON THE FIRST DAY THEN TAKE ONE DAILY THEREAFTER completed azithromyc in 250 MG Oral Tablet [facility] ([facility]) Breo Ellipta One INH once daily. complet ed Breo Ellipta [facility] ([facility]) Prednisone 10 MG Oral Tablet prednisone 10 mg tablet TAKE 6 TABLETS BY MOUTH DAILY FOR 3 DAYS THEN 5 TABLETS DAILY X 2 DAYS 4 TABLETS DAILY X 2 DAYS 3 TABLETS DAILY X 2 DAYS 2 TABLETS DAILY prednisone 10 mg tablet TAKE 6 TABLETS BY MOUTH DAILY FOR 3 DAYS THEN 5 TABLETS DAILY X 2 DAYS 4 TABLETS DAILY X 2 DAYS 3 TABLETS DAILY X 2 DAYS 2 TABLETS DAILY completed prednisone 10 MG Oral Tablet [facility] ([facility]) Prednisone 10 MG Oral Tablet prednisone 10 mg tablet TAKE 6 TABLETS BY MOUTH DAILY FOR 3 DAYS THEN 5 TABLETS DAILY X 2 DAYS 4 TABLETS DAILY X 2 DAYS 3 TABLETS DAILY X 2 DAYS 2 TABLETS DAILY prednisone 10 mg tablet TAKE 6 TABLETS BY MOUTH DAILY FOR 3 DAYS THEN 5 TABLETS DAILY X 2 DAYS 4 TABLETS DAILY X 2 DAYS 3 TABLETS DAILY X 2 DAYS 2 TABLETS DAILY completed prednisone 10 MG Oral Tablet [facility] ([facility]) Oseltamivir 75 MG Oral Capsule oseltamivir [address] [facility] oseltamivir 75 mg capsule completed oseltamivir 75 MG Oral Capsule [facility] ([facility]) Breo Ellipta One INH once daily. complet ed Breo Ellipta [facility] ([facility]) albuterol sulfate HFA 90 mcg/actuation aerosol inhaler [id number] completed [id number] 200 ACTUAT albuterol 0.09 MG/ACTUAT Metered Dose Inhaler [facility] ([facility]) albuterol sulfate HFA 90 mcg/actuation aerosol inhaler [id number] completed [id number] 200 ACTUAT albuterol 0.09 MG/ACTUAT Metered Dose Inhaler [facility] ([facility]) Prednisone 10 MG Oral Tablet prednisone 10 mg tablet TAKE 6 TABLETS BY MOUTH DAILY FOR 3 DAYS THEN 5 TABLETS DAILY X 2 DAYS 4 TABLETS DAILY X 2 DAYS 3 TABLETS DAILY X 2 DAYS 2 TABLETS DAILY prednisone 10 mg tablet TAKE 6 TABLETS BY MOUTH DAILY FOR 3 DAYS THEN 5 TABLETS DAILY X 2 DAYS 4 TABLETS DAILY X 2 DAYS 3 TABLETS DAILY X 2 DAYS 2 TABLETS DAILY completed prednisone 10 MG Oral Tablet [facility] ([facility]) Prednisone 10 MG Oral Tablet prednisone 10 mg tablet TAKE 6 TABLETS BY MOUTH DAILY FOR 3 DAYS THEN 5 TABLETS DAILY X 2 DAYS 4 TABLETS DAILY X 2 DAYS 3 TABLETS DAILY X 2 DAYS 2 TABLETS DAILY prednisone 10 mg tablet TAKE 6 TABLETS BY MOUTH DAILY FOR 3 DAYS THEN 5 TABLETS DAILY X 2 DAYS 4 TABLETS DAILY X 2 DAYS 3 TABLETS DAILY X 2 DAYS 2 TABLETS DAILY completed prednisone 10 MG Oral Tablet [facility] ([facility]) Prednisone 10 MG Oral Tablet prednisone 10 mg tablet TAKE 6 TABLETS BY MOUTH DAILY FOR 3 DAYS THEN 5 TABLETS DAILY X 2 DAYS 4 TABLETS DAILY X 2 DAYS 3 TABLETS DAILY X 2 DAYS 2 TABLETS DAILY prednisone 10 mg tablet TAKE 6 TABLETS BY MOUTH DAILY FOR 3 DAYS THEN 5 TABLETS DAILY X 2 DAYS 4 TABLETS DAILY X 2 DAYS 3 TABLETS DAILY X 2 DAYS 2 TABLETS DAILY completed prednisone 10 MG Oral Tablet [facility] ([facility]) Amoxicillin 875 MG Oral Tablet amoxicill in 875 mg tablet TAKE ONE TABLET BY MOUTH EVERY 12 HOURS FOR 10 DAYS amoxicillin 875 mg tablet TAKE ONE TABLE T BY MOUTH EVERY 12 HOURS FOR 10 DAYS compl eted amoxicillin 875 MG Oral Tablet [facility] ([facility]) Azithromycin 250 MG Oral Tablet azithrom ycin 250 mg tablet TAKE TWO TABLETS BY MOUTH AT ONCE ON THE FIRST DAY THEN TAKE ONE DAILY THEREAFTER azithromycin 250 mg tablet TAKE TWO TABLETS BY MOUTH AT ONCE ON THE FIRST DAY THEN TAKE ONE DAILY THEREAFTER completed azithromyc in 250 MG Oral Tablet [facility] ([facility]) Levothyroxine Sodium 0.05 MG Oral Capsule levothyroxin e 50 mcg capsule levothyroxine 50 mcg capsule completed levothyroxine sodium 0.05 MG Oral Capsule [facility] ([facility]) Levothyroxine Sodium 0.05 MG Oral Capsule levothyroxin e 50 mcg capsule levothyroxine 50 mcg capsule completed levothyroxine sodium 0.05 MG Oral Capsule [facility] ([facility]) Azithromycin 250 MG Oral Tablet azithrom ycin 250 mg tablet TAKE TWO TABLETS BY MOUTH AT ONCE ON THE FIRST DAY THEN TAKE ONE DAILY THEREAFTER azithromycin 250 mg tablet TAKE TWO TABLETS BY MOUTH AT ONCE ON THE FIRST DAY THEN TAKE ONE DAILY THEREAFTER completed azithromyc in 250 MG Oral Tablet [facility] ([facility]) Folic Acid 1 MG Oral Tablet folic acid 1 mg tablet TAKE ONE TABLET BY MOUTH EVERY DAY folic acid 1 mg tablet TAKE ONE TABLET BY MOUTH EVERY DAY completed folic acid 1 MG Oral Tablet [facility] ([facility]) Oseltamivir 75 MG Oral Capsule oseltamivir 75 mg arthuru le oseltamivir 75 mg capsule completed oseltamivir 75 MG Oral Capsule [facility] ([facility]) albuterol sulfate HFA 90 mcg/actuation aerosol inhaler [id number] completed [id number] 200 ACTUAT albuterol 0.09 MG/ACTUAT Metered Dose Inhaler [facility] ([facility]) Prednisone 10 MG Oral Tablet prednisone 10 mg tablet TAKE 6 TABLETS BY MOUTH DAILY FOR 3 DAYS THEN 5 TABLETS DAILY X 2 DAYS 4 TABLETS DAILY X 2 DAYS 3 TABLETS DAILY X 2 DAYS 2 TABLETS DAILY prednisone 10 mg tablet TAKE 6 TABLETS BY MOUTH DAILY FOR 3 DAYS THEN 5 TABLETS DAILY X 2 DAYS 4 TABLETS DAILY X 2 DAYS 3 TABLETS DAILY X 2 DAYS 2 TABLETS DAILY completed prednisone 10 MG Oral Tablet [facility] ([facility]) Breo Ellipta One INH once daily. complet ed Breo Ellipta [facility] ([facility]) Breo Ellipta One INH once daily. complet ed Breo Ellipta [facility] ([facility]) Azithromycin 250 MG Oral Tablet azithrom ycin 250 mg tablet TAKE TWO TABLETS BY MOUTH AT ONCE ON THE FIRST DAY THEN TAKE ONE DAILY THEREAFTER azithromycin 250 mg tablet TAKE TWO TABLETS BY MOUTH AT ONCE ON THE FIRST DAY THEN TAKE ONE DAILY THEREAFTER completed azithromyc in 250 MG Oral Tablet [facility] ([facility]) Breo Ellipta One INH once daily. complet ed Breo Ellipta [facility] [facility]) Folic Acid 1 MG Oral Tablet folic acid 1 mg tablet TAKE ONE TABLET BY MOUTH EVERY DAY folic acid 1 mg tablet TAKE ONE TABLET BY MOUTH EVERY DAY completed folic acid 1 MG Oral Tablet ANKIT [place] ([facility]) Azithromycin 250 MG Oral Tablet azithrom ycin 250 mg tablet TAKE TWO TABLETS BY MOUTH AT ONCE ON THE FIRST DAY THEN TAKE ONE DAILY THEREAFTER azithromycin 250 mg tablet TAKE TWO TABLETS BY MOUTH AT ONCE ON THE FIRST DAY THEN TAKE ONE DAILY THEREAFTER completed azithromyc in 250 MG Oral Tablet CASH ([facility]) Breo Ellipta One INH once daily. complet ed Breo Ellipta CASH ([facility]) Breo Ellipta One INH once daily. complet ed Breo Ellipta CASH ([facility]) Prednisone 10 MG Oral Tablet prednisone 10 mg tablet TAKE 6 TABLETS BY MOUTH DAILY FOR 3 DAYS THEN 5 TABLETS DAILY X 2 DAYS 4 TABLETS DAILY X 2 DAYS 3 TABLETS DAILY X 2 DAYS 2 TABLETS DAILY prednisone 10 mg tablet TAKE 6 TABLETS BY MOUTH DAILY FOR 3 DAYS THEN 5 TABLETS DAILY X 2 DAYS 4 TABLETS DAILY X 2 DAYS 3 TABLETS DAILY X 2 DAYS 2 TABLETS DAILY completed prednisone 10 MG Oral Tablet CASH ([facility]) albuterol sulfate HFA 90 mcg/actuation aerosol inhaler [id number] completed [id number] 200 ACTUAT albuterol 0.09 MG/ACTUAT Metered Dose Inhaler CASH ([facility]) Azithromycin 250 MG Oral Tablet azithrom ycin 250 mg tablet TAKE TWO TABLETS BY MOUTH AT ONCE ON THE FIRST DAY THEN TAKE ONE DAILY THEREAFTER azithromycin 250 mg tablet TAKE TWO TABLETS BY MOUTH AT ONCE ON THE FIRST DAY THEN TAKE ONE DAILY THEREAFTER completed azithromyc in 250 MG Oral Tablet CASH ([facility]) Breo Ellipta One INH once daily. complet ed Breo Ellipta CASH ([facility]) Azithromycin 250 MG Oral Tablet azithrom ycin 250 mg tablet TAKE TWO TABLETS BY MOUTH AT ONCE ON THE FIRST DAY THEN TAKE ONE DAILY THEREAFTER azithromycin 250 mg tablet TAKE TWO TABLETS BY MOUTH AT ONCE ON THE FIRST DAY THEN TAKE ONE DAILY THEREAFTER completed azithromyc in 250 MG Oral Tablet CASH ([facility]) Breo Ellipta One INH once daily. complet ed Breo Ellipta CASH ([facility]) albuterol sulfate HFA 90 mcg/actuation aerosol inhaler [id number] completed [id number] 200 ACTUAT albuterol 0.09 MG/ACTUAT Metered Dose Inhaler CASH ([facility]) Azithromycin 250 MG Oral Tablet azithrom ycin 250 mg tablet TAKE TWO TABLETS BY MOUTH AT ONCE ON THE FIRST DAY THEN TAKE ONE DAILY THEREAFTER azithromycin 250 mg tablet TAKE TWO TABLETS BY MOUTH AT ONCE ON THE FIRST DAY THEN TAKE ONE DAILY THEREAFTER completed azithromyc in 250 MG Oral Tablet CASH ([facility]) Azithromycin 250 MG Oral Tablet azithrom ycin 250 mg tablet TAKE TWO TABLETS BY MOUTH AT ONCE ON THE FIRST DAY THEN TAKE ONE DAILY THEREAFTER azithromycin 250 mg tablet TAKE TWO TABLETS BY MOUTH AT ONCE ON THE FIRST DAY THEN TAKE ONE DAILY THEREAFTER completed azithromyc in 250 MG Oral Tablet CASH ([facility]) Insurance Providers Payer name Policy type / Coverage type Policy ID Covered constitution party ID Covered constitution party's relationship to le[place]uga Policy [place] Plan Information Medicaid S [id number] S [id number] Managed Care - Community Plan [facility] P [id number] S [id number] Managed Care - Community Plan [facility] P [id number] S [id number] Managed Care - [facility] Community Plan P [id number] S [id number] Medicaid S [id number] S [id number] Managed Care - [facility] Community Plan P [id number] S [id number] [facility] MEDICAID [id number] Julia [id number] [facility] MEDICAID [id number] [facility] O [id number] S [id number] EMEDNY [id number] SP [id number] [facility] MCDO [id number] SP [id number] Problems, Conditions, and Diagnoses Code Display Name Description Problem Type Effective Dates Data Source(s) J45.20 Mild intermittent asthma Mild intermittent asthma Prob roseann 11/08/2020 12:00:00 AM EDT [facility] ([facility], ) G47.33 Obstructive sleep apnea syndrome Obstructive sle ep apnea syndrome Problem 09/27/2020 12:00:00 AM EDT [facility] ([facility] ) [id number] COVID-19 Covid-19 Problem 03/10/2020 12:0 0:00 AM EST - 03/21/2020 12:00:00 AM EST [facility] ([facility]) [id number] COVID-19 Covid-19 Problem 03/10/2020 12:0 0:00 AM EST - 03/21/2020 12:00:00 AM EST [facility] ([facility]) [id number] COVID-19 Covid-19 Problem 03/10/2020 12:00:00 AM JACY CASTREJON ([facility]) [id number] COVID-19 Covid-19 Problem 03/10/2020 12:00:00 AM JACY CASTREJON ([facility]) [id number] COVID-19 Covid-19 Problem 03/10/2020 12:00:00 AM ES Edgar CASTREJON ([facility]) [id number] COVID-19 Covid-19 Problem 03/10/2020 12:00:00 AM JACY CASTREJON ([facility]) [id number] COVID-19 Covid-19 Problem 03/10/2020 12:00:00 AM JACY CASTREJON ([facility]) [id number] COVID-19 Covid-19 Problem 03/10/2020 12:00:00 AM ES Edgar CASTREJON ([facility]) [id number] COVID-19 Covid-19 Problem 03/10/2020 12:00:00 AM JACY CASTREJON ([facility]) [id number] COVID-19 Covid-19 Problem 03/10/2020 12:00:00 AM JACY CASTREJON ([facility]) [id number] Finding of head region Finding of Head Region Problem 10/13/2019 12:00:00 AM EDT - 08/10/2020 12:00:00 AM EDT [facility] ([facility]) [id number] SNOMED CT Concept SNOMED CT Concept Problem 10/12 12:00:00 AM EDT - 11/02/2020 12:00:00 AM EDT [facility] ([facility]) [id number] Influenza vaccine needed Influenza Vaccine Needed Pro blem 10/13/2019 12:00:00 AM EDT - 11/02/2020 12:00:00 AM EDT [facility] ([facility]) [id number] SNOMED CT Concept SNOMED CT Concept Problem 10/12 12:00:00 AM EDT - 08/10/2020 12:00:00 AM EDT [facility] ([facility]) [id number] SNOMED CT Concept SNOMED CT Concept Problem 10/12 12:00:00 AM EDT - 11/02/2020 12:00:00 AM EDT [facility] ([facility]) [id number] Influenza vaccine needed Influenza Vaccine Needed Pro blem 10/13/2019 12:00:00 AM EDT - 11/02/2020 12:00:00 AM EDT [place] ([facility]) [id number] SNOMED CT Concept SNOMED CT Concept Problem 10/12 12:00:00 AM EDT - 08/10/2020 12:00:00 AM EDT [place] ([facility]) [id number] SNOMED CT Concept SNOMED CT Concept Problem 10/12 12:00:00 AM EDT - 08/10/2020 12:00:00 AM EDT [place] ([facility]) [id number] Endocrine/metabolic screening Endocrine/metabolic Scre ening Problem 11/25/2018 12:00:00 AM EDT - 11/02/2020 12:00:00 AM EDT [place] ([facility]) [id number] Endocrine/metabolic screening Endocrine/metabolic Scre ening Problem 11/25/2018 12:00:00 AM EDT - 11/02/2020 12:00:00 AM EDT [place] ([facility]) Surgeries/Procedures Procedure Description Date Indications Data Source(s) OFFICE OUTPATIENT NEW 45 MINUTES 11/17/2020 12:00:00 A M EDT [facility]) OFFICE OUTPATIENT VISIT 25 MINUTES 11/08/2020 12:00:00 AM EDT [facility] ([facility]) OFFICE OUTPATIENT VISIT 25 MINUTES 09/27/2020 12:00:00 AM EDT [facility] ([facility]) Spirometry 08/11/2020 12:00:00 AM EDT [facility] OFFICE OUTPATIENT NEW 45 MINUTES 08/11/2020 12:00:00 A EDT [facility] ([facility]) Results ID Date Data Source [id number] 12/15/2020 10:00:00 AM EDT [facility] Name Value Range Interpretation Code Description Data Christel rce(s) Supporting Document(s) SARS-CoV-2 (COVID-19) RNA [Presence] in Respiratory specimen by BRITTA with probe detection Not Detected [facility] This lab was ordered by [facility] and reported by [employer] ID Date Data Source [id number] 10/26/2020 09:04:00 AM EDT [place] ([facility]) Name Value Range Interpretation Code Description Data Christel rce(s) Supporting Document(s) Calcidiol [Mass/volume] in Serum or Plasma 24 NG/mL 30-100 Below low normal Vitamin D,25-Oh,total,ia [place] ([facility]) ID Date Data Source [id number] 10/26/2020 09:04:00 AM EDT [facility] ([facility]) Name Value Range Interpretation Code Description Data Christel rce(s) Supporting Document(s) Thyrotropin [Units/volume] in Serum or Plasma 4.80 mIU/L 0. 40-4.50 Above high normal Tsh [place] ([facility]) ID Date Data Source [id number] 10/26/2020 09:04:00 AM EDT [place] ([facility]) Name Value Range Interpretation Code Description Data Christel rce(s) Supporting Document(s) Leukocytes [#/volume] in Blood by Automated count 6.4 thousand/uL 3 .8-10.8 White Blood Cell Count [facility] ([facility]) Erythrocytes [#/volume] in Blood by Automated count 4.84 million/uL 4.20-5.80 Red Blood Cell Count [place] ([facility]) Hematocrit [Volume Fraction] of Blood by Automated count 45.3 % 38.5-50.0 Hematocrit [place] ([facility]) Hemoglobin [Mass/volume] in Blood 15.0 g/dL 13.2-17.1 He moglobin [facility] ([facility]) Erythrocyte mean corpuscular volume [Entitic volume] by Auto mated count 93.6 fL 80.0-100.0 Mcv [facility] ([facility]) Erythrocyte mean corpuscular hemoglobin [Entitic mass] by Automated count 31.0 pg 27.0-33.0 Mch [facility]ASH ([facility]) Erythrocyte distribution width [Ratio] by Automated count 12.2 % 11.0-15.0 Rdw [facility] ([facility]) Platelets [#/volume] in Blood by Automated count 341 thousand/uL 14 0-400 Platelet Count [facility] ([facility]) Erythrocyte mean corpuscular hemoglobin concentration [Mass/volume] by Automated count 33.1 g/dL 32.0-36.0 Mchc CASH ([facility]) Platelet mean volume [Entitic volume] in Blood by Susan 11.7 f L 7.5-12.5 Mpv [facility] ([facility]) ID Date Data Source [id number] 10/26/2020 09:04:00 AM EDT [facility] ([facility]) Name Value Range Interpretation Code Description Data Christel rce(s) Supporting Document(s) Glucose [Mass/volume] in Serum or Plasma 96 mg/dL 65-99 Glucose [place] ([facility]) Urea nitrogen [Mass/volume] in Serum or Plasma 16 mg/dL 7-25 [facility] Creatinine [Mass/volume] in Serum or Plasma 1.05 mg/dL 0.60-1.35 Creatinine [place] ([facility]) Glomerular filtration rate/1.73 sq M.pre dicted among non-blacks [Volume Rate/Area] in Serum, Plasma or Blood by Creatinine-based formula (CKD-EPI) 88 mL/min/1.73m2 > or = 60 eGFR Non-afr. [place] CASH ([facility]) Glomerular filtration rate/1.73 sq M.pre dicted among blacks [Volume Rate/Area] in Serum, Plasma or Blood by Creatinine-based formula (CKD-EPI) 102 mL/min/1.73m2 > or = 60 eGFR [facility] ([facility]) Sodium [Moles/volume] in Serum or Plasma 140 mmol/L 135-146 Sodium [facility] ([facility]) Urea nitrogen/Creatinine [Mass Ratio] in Serum or Plasma not applic able 6-22 BUN/creatinine Ratio [facility]ASH ([facility]) Chloride [Moles/volume] in Serum or Plasma 103 mmol/L 98-110 Chloride [facility] ([facility]) Potassium [Moles/volume] in Serum or Plasma 4.3 mmol/L 3.5-5.3 Potassium [facility] ([facility]) Calcium [Mass/volume] in Serum or Plasma 9.2 mg/dL 8.6-10.3 Calcium [facility] ([facility]) Carbon dioxide, total [Moles/volume] in Serum or Plasma 31 mmol/L 20-32 Carbon Dioxide [facility] ([facility]) Albumin [Mass/volume] in Serum or Plasma 4.3 g/dL 3.6-5.1 Albumin [facility] ([facility]) Protein [Mass/volume] in Serum or Plasma 7.5 g/dL 6.1-8.1 Protein, Total [place] ([facility]) Globulin [Mass/volume] in Serum by calculation 3.2 g/dL_(calc) 1.9- 3.7 Globulin [place] ([facility]) Bilirubin.total [Mass/volume] in Serum or Plasma 0.6 mg/dL 0.2-1 .2 Bilirubin, Total [place] ([facility]) Albumin/Globulin [Mass Ratio] in Serum or Plasma 1.3 (calc) 1.0-2 .5 Albumin/globulin Ratio [facility] ([facility]) Aspartate aminotransferase [Enzymatic activity/volume] in Serum or Plasma 15 U/L 10-40 Ast [facility] ([facility]) Alkaline phosphatase [Enzymatic activity/volume] in Serum or Plasma 108 U/L 36-130 Alkaline Phosphatase [facility]ASH ([facility]) Alanine aminotransferase [Enzymatic activity/volume] in Seru m or Plasma 20 U/L 9-46 Alt CASH ([facility]) ID Date Data Source [id number] 10/26/2020 09:04:00 AM EDT [facility] ([facility]) Name Value Range Interpretation Code Description Data Christel rce(s) Supporting Document(s) Cholesterol [Mass/volume] in Serum or Plasma 219 mg/dL <200 Above high normal Cholesterol, Total [facility] ([facility]) Cholesterol in HDL [Mass/volume] in Serum or Plasma 54 mg/dL > or = 40 HDL [facility] Triglyceride [Mass/volume] in Serum or Plasma 114 mg/dL <150 Triglycerides [facility] ([facility]) Cholesterol.total/Cholesterol in HDL [Mass Ratio] in Serum o r Plasma 4.1 (calc) <5.0 Chol/hdlc Ratio [facility]ASH ([facility]) Cholesterol in LDL [Mass/volume] in Serum or Plasma by calculation 142 mg/dL_(calc) Above high normal LDL-cholesterol [facility] ([facility]) Cholesterol non HDL [Mass/volume] in Serum or Plasma 165 mg/dL_( calc) <130 Above high normal Non HDL Cholesterol [facility] ([facility]) ID Date Data Source [id number] 10/26/2020 09:04:00 AM EDT [place] ([facility]) Name Value Range Interpretation Code Description Data Christel rce(s) Supporting Document(s) Calcidiol [Mass/volume] in Serum or Plasma 24 NG/mL 30-100 Below low normal Vitamin D,25-Oh,total,ia [place] ([facility]) ID Date Data Source [id number] 10/26/2020 09:04:00 AM EDT [place] ([facility]) Name Value Range Interpretation Code Description Data Christel rce(s) Supporting Document(s) Thyrotropin [Units/volume] in Serum or Plasma 4.80 mIU/L 0. 40-4.50 Above high normal Tsh [place] ([facility]) ID Date Data Source [id number] 10/26/2020 09:04:00 AM EDT [place] ([facility]) Name Value Range Interpretation Code Description Data Christel rce(s) Supporting Document(s) Erythrocytes [#/volume] in Blood by Automated count 4.84 million/uL 4.20-5.80 Red Blood Cell Count [facility] ([facility]) Leukocytes [#/volume] in Blood by Automated count 6.4 thousand/uL 3 .8-10.8 White Blood Cell Count [facility] ([facility]) Hemoglobin [Mass/volume] in Blood 15.0 g/dL 13.2-17.1 He moglobin [facility] ([facility]) Erythrocyte mean corpuscular volume [Entitic volume] by Auto mated count 93.6 fL 80.0-100.0 Mcv [facility] ([facility]) Hematocrit [Volume Fraction] of Blood by Automated count 45.3 % 38.5-50.0 Hematocrit [place] ([facility]) Erythrocyte distribution width [Ratio] by Automated count 12.2 % 11.0-15.0 Rdw [facility] ([facility]) Erythrocyte mean corpuscular hemoglobin concentration [Mass/volume] by Automated count 33.1 g/dL 32.0-36.0 Mchc [facility] ([facility]) Erythrocyte mean corpuscular hemoglobin [Entitic mass] by Automated count 31.0 pg 27.0-33.0 Mch [place] ([facility]) Platelet mean volume [Entitic volume] in Blood by Hilario-Aniceto 11.7 f L 7.5-12.5 Mpv [place] ([facility]) Platelets [#/volume] in Blood by Automated count 341 thousand/uL 14 0-400 Platelet Count [place] ([facility]) ID Date Data Source [id number] 10/26/2020 09:04:00 AM EDT [place] ([facility]) Name Value Range Interpretation Code Description Data Christel rce(s) Supporting Document(s) Glucose [Mass/volume] in Serum or Plasma 96 mg/dL 65-99 Glucose [place] ([facility]) Glomerular filtration rate/1.73 sq M.pre dicted among non-blacks [Volume Rate/Area] in Serum, Plasma or Blood by Creatinine-based formula (CKD-EPI) 88 mL/min/1.73m2 > or = 60 eGFR Non-afr. [place] C[facility] ([facility]) Urea nitrogen [Mass/volume] in Serum or Plasma 16 mg/dL 7-25 Urea Nitrogen (BUN) [facility]) Creatinine [Mass/volume] in Serum or Plasma 1.05 mg/dL 0.60-1.35 Creatinine [facility]) Glomerular filtration rate/1.73 sq M.pre dicted among blacks [Volume Rate/Area] in Serum, Plasma or Blood by Creatinine-based formula (CKD-EPI) 102 mL/min/1.73m2 > or = 60 eGFR [facility] ([facility]) Urea nitrogen/Creatinine [Mass Ratio] in Serum or Plasma not applic able 6-22 BUN/creatinine Ratio [facility] ([facility]) Sodium [Moles/volume] in Serum or Plasma 140 mmol/L 135-146 Sodium [facility] ([facility]) Potassium [Moles/volume] in Serum or Plasma 4.3 mmol/L 3.5-5.3 Potassium [facility] ([facility]) Chloride [Moles/volume] in Serum or Plasma 103 mmol/L 98-110 Chloride [place] ([facility]) Calcium [Mass/volume] in Serum or Plasma 9.2 mg/dL 8.6-10.3 Calcium [place] ([facility]) Carbon dioxide, total [Moles/volume] in Serum or Plasma 31 mmol/L 20-32 Carbon Dioxide [place] ([facility]) Globulin [Mass/volume] in Serum by calculation 3.2 g/dL_(calc) 1.9- 3.7 Globulin [place] ([facility]) Protein [Mass/volume] in Serum or Plasma 7.5 g/dL 6.1-8.1 Protein, Total [place] ([facility]) Albumin [Mass/volume] in Serum or Plasma 4.3 g/dL 3.6-5.1 Albumin [place] ([facility]) Albumin/Globulin [Mass Ratio] in Serum or Plasma 1.3 (calc) 1.0-2 .5 Albumin/globulin Ratio [place] ([facility]) Bilirubin.total [Mass/volume] in Serum or Plasma 0.6 mg/dL 0.2-1 .2 Bilirubin, Total [facility] ([facility]) Alanine aminotransferase [Enzymatic activity/volume] in Seru m or Plasma 20 U/L 9-46 Alt [place] ([facility]) Aspartate aminotransferase [Enzymatic activity/volume] in Serum or Plasma 15 U/L 10-40 Ast [place] ([facility]) Alkaline phosphatase [Enzymatic activity/volume] in Serum or Plasma 108 U/L 36-130 Alkaline Phosphatase [place] ([facility]) ID Date Data Source [id number] 10/26/2020 09:04:00 AM EDT [facility]) Name Value Range Interpretation Code Description Data Christel rce(s) Supporting Document(s) Cholesterol [Mass/volume] in Serum or Plasma 219 mg/dL <200 Above high normal Cholesterol, Total [facility] ([facility]) Cholesterol in HDL [Mass/volume] in Serum or Plasma 54 mg/dL > or = 40 HDL Cholesterol [facility] ([facility]) Triglyceride [Mass/volume] in Serum or Plasma 114 mg/dL <150 Triglycerides [facility] ([facility]) Cholesterol in LDL [Mass/volume] in Serum or Plasma by calculation 142 mg/dL_(calc) Above high normal LDL-cholesterol [facility] ([facility]) Cholesterol non HDL [Mass/volume] in Serum or Plasma 165 mg/dL_( calc) <130 Above high normal Non HDL Cholesterol [facility] ([facility]) Cholesterol.total/Cholesterol in HDL [Mass Ratio] in Serum o r Plasma 4.1 (calc) <5.0 Chol/hdlc Ratio [facility] ([facility]) ID Date Data Source [id number] 08/11/2020 10:26:00 AM EDT [facility] ([facility], ) Name Value Range Interpretation Code Description Data Christel rce(s) Supporting Document(s) PDFReport Laboratory test result [facility] ([facility], ) FVC-Pred 4.82 L [facility] ([facility], ) FVC-Pre 3.48 L [facility] ([facility], ) FVC-%Pred-Pre 72 L [facility] ([facility], ) FVC-LLN 3.97 L [facility] ([facility], ) Fev1-Pre 3.05 L [facility] ([facility], ) Fev1-%Pred-Pre 78 L [facility] ([facility], ) Fev1-Pred 3.87 L [facility] ([facility], ) Fev6-Pre 3.48 L [facility] ([facility]) Fev6-Pred 4.71 L [facility] ([facility]) Fev1-LLN 3.14 L [facility] ([facility]) Jvw5crp-Ywyx 80 % [facility] ([facility]) Fev6-%Pred-Pre 73 L [facility] ([facility]) Fev6-LLN 3.88 L [facility] ([facility]) Ogt4wti-%Pred-Pre 109 % [facility] ([facility]) Aqy8mxe-Ufj 87 % [facility] ([facility]) Cyc6dmw-Vql 100 % [facility] ([facility]) Oix6ifk-UAM 70 % [facility] ([facility]) Lul0zyo-Iecp 98 % [facility] ([facility]) Ekt9scq-%Pred-Pre 102 % [facility] ([facility]) FEFMax-Pred 9.53 L/E/sec [facility] ([facility]) FEFMax-Pre 6.44 L/E/sec [facility] ([facility]) Auv4998-Qriq 3.75 L/E/sec [facility] ([facility]) FEFMax-%Pred-Pre 67 L/E/sec [facility] ([facility]) FEFMax-LLN 7.40 L/E/sec [facility] ([facility]) Ugb0706-Lrb 4.40 L/E/sec [facility] ([facility]) Ojx5298-XMT 2.28 L/E/sec [facility] ([facility]) Aiw6836-%Pred-Pre 117 L/E/sec [facility] ([facility]) ExpTime-Pre 5.73 sec [facility] ([facility]) Ipb1rlg5-Zbin 82 % [facility] ([facility]) Xed0iyv5-NOG 73 % [facility] ([facility]) Ogr1tnf2-%Pred-Pre 106 % [facility] ([facility], ) Egj9cjj6-Zht 87 % [facility] ([facility], ) ID Date Data Source [id number] 07/26/2020 10:21:00 AM EDT [facility]) Name Value Range Interpretation Code Description Data Christel rce(s) Supporting Document(s) Calcidiol [Mass/volume] in Serum or Plasma 23 NG/mL 30-100 Below low normal Vitamin D,25-Oh,total,ia [facility]) ID Date Data Source [id number] 07/26/2020 10:21:00 AM EDT [facility]) Name Value Range Interpretation Code Description Data Christel rce(s) Supporting Document(s) Thyrotropin [Units/volume] in Serum or Plasma 2.28 mIU/L 0.40-4.5 0 TSH W/reflex to FT4 [place] ([facility]) ID Date Data Source [id number] 07/26/2020 10:21:00 AM EDT [facility]) Name Value Range Interpretation Code Description Data Christel rce(s) Supporting Document(s) Leukocytes [#/volume] in Blood by Automated count 6.7 thousand/uL 3 .8-10.8 White Blood Cell Count [place] ([facility]) Hematocrit [Volume Fraction] of Blood by Automated count 43.9 % 38.5-50.0 Hematocrit [place] ([facility]) Erythrocytes [#/volume] in Blood by Automated count 4.61 million/uL 4.20-5.80 Red Blood Cell Count [place] ([facility]) Hemoglobin [Mass/volume] in Blood 14.6 g/dL 13.2-17.1 He moglobin [place] ([facility]) Erythrocyte mean corpuscular volume [Entitic volume] by Auto mated count 95.2 fL 80.0-100.0 Mcv [facility] ([facility]) Erythrocyte mean corpuscular hemoglobin [Entitic mass] by Automated count 31.7 pg 27.0-33.0 Mch [place] ([facility]) Erythrocyte mean corpuscular hemoglobin concentration [Mass/volume] by Automated count 33.3 g/dL 32.0-36.0 Mchc [facility] ([facility]) Erythrocyte distribution width [Ratio] by Automated count 12.4 % 11.0-15.0 Rdw [facility] ([facility]) Platelet mean volume [Entitic volume] in Blood by Hilario-Aniceto 11.5 f L 7.5-12.5 Mpv [facility] ([facility]) Platelets [#/volume] in Blood by Automated count 330 thousand/uL 14 0-400 Platelet Count [place] ([facility]) ID Date Data Source [id number] 07/26/2020 10:21:00 AM EDT [facility]) Name Value Range Interpretation Code Description Data Christel rce(s) Supporting Document(s) Urea nitrogen [Mass/volume] in Serum or Plasma 15 mg/dL 7-25 Urea Nitrogen (BUN) [place] ([facility]) Glucose [Mass/volume] in Serum or Plasma 91 mg/dL 65-99 Glucose [facility]) Glomerular filtration rate/1.73 sq M.pre dicted among non-blacks [Volume Rate/Area] in Serum, Plasma or Blood by Creatinine-based formula (CKD-EPI) 103 mL/min/1.73m2 > or = 60 eGFR Non-afr. [place] [facility] ([facility]) Creatinine [Mass/volume] in Serum or Plasma 0.93 mg/dL 0.60-1.35 Creatinine [place] ([facility]) Urea nitrogen/Creatinine [Mass Ratio] in Serum or Plasma not applic able 6-22 BUN/creatinine Ratio [place] ([facility]) Glomerular filtration rate/1.73 sq M.pre dicted among blacks [Volume Rate/Area] in Serum, Plasma or Blood by Creatinine-based formula (CKD-EPI) 119 mL/min/1.73m2 > or = 60 eGFR [facility] ([facility]) Sodium [Moles/volume] in Serum or Plasma 140 mmol/L 135-146 Sodium [facility] ([facility]) Chloride [Moles/volume] in Serum or Plasma 101 mmol/L 98-110 Chloride [facility] ([facility]) Potassium [Moles/volume] in Serum or Plasma 4.1 mmol/L 3.5-5.3 Potassium [place] ([facility]) Calcium [Mass/volume] in Serum or Plasma 9.2 mg/dL 8.6-10.3 Calcium [place] ([facility]) Carbon dioxide, total [Moles/volume] in Serum or Plasma 30 mmol/L 20-32 Carbon Dioxide [facility] ([facility]) Protein [Mass/volume] in Serum or Plasma 7.2 g/dL 6.1-8.1 Protein, Total [place] ([facility]) Globulin [Mass/volume] in Serum by calculation 3.1 g/dL_(calc) 1.9- 3.7 Globulin [place] ([facility]) Albumin [Mass/volume] in Serum or Plasma 4.1 g/dL 3.6-5.1 Albumin [place] ([facility]) Albumin/Globulin [Mass Ratio] in Serum or Plasma 1.3 (calc) 1.0-2 .5 Albumin/globulin Ratio [place] ([facility]) Bilirubin.total [Mass/volume] in Serum or Plasma 0.7 mg/dL 0.2-1 .2 Bilirubin, Total [place] ([facility]) Alanine aminotransferase [Enzymatic activity/volume] in Seru m or Plasma 17 U/L 9-46 Alt [facility] ([facility]) Aspartate aminotransferase [Enzymatic activity/volume] in Serum or Plasma 13 U/L 10-40 Ast [place] ([facility]) Alkaline phosphatase [Enzymatic activity/volume] in Serum or Plasma 101 U/L 36-130 Alkaline Phosphatase [place] ([facility]) ID Date Data Source [id number] 07/26/2020 10:21:00 AM EDT [place] ([facility]) Name Value Range Interpretation Code Description Data Christel rce(s) Supporting Document(s) Cholesterol [Mass/volume] in Serum or Plasma 192 mg/dL <200 Cholesterol, Total [facility] ([facility]) Cholesterol in HDL [Mass/volume] in Serum or Plasma 49 mg/dL > or = 40 HDL Cholesterol [facility] ([facility]) Triglyceride [Mass/volume] in Serum or Plasma 127 mg/dL <150 Triglycerides [facility] ([facility]) Cholesterol.total/Cholesterol in HDL [Mass Ratio] in Serum o r Plasma 3.9 (calc) <5.0 Chol/hdlc Ratio [facility] ([facility]) Cholesterol in LDL [Mass/volume] in Serum or Plasma by calculation 119 mg/dL_(calc) Above high normal LDL-cholesterol [facility] ([facility]) Cholesterol non HDL [Mass/volume] in Serum or Plasma 143 mg/dL_( calc) <130 Above high normal Non HDL Cholesterol [facility] ([facility]) ID Date Data Source [id number] 07/26/2020 10:21:00 AM EDT [facility]) Name Value Range Interpretation Code Description Data Christel rce(s) Supporting Document(s) Calcidiol [Mass/volume] in Serum or Plasma 23 NG/mL 30-100 Below low normal Vitamin D,25-Oh,total,ia [facility]) ID Date Data Source [id number] 07/26/2020 10:21:00 AM EDT [facility]) Name Value Range Interpretation Code Description Data Christel rce(s) Supporting Document(s) Thyrotropin [Units/volume] in Serum or Plasma 2.28 mIU/L 0.40-4.5 0 TSH W/reflex to FT4 [facility]) ID Date Data Source [id number] 07/26/2020 10:21:00 AM EDT [facility]) Name Value Range Interpretation Code Description Data Christel rce(s) Supporting Document(s) Leukocytes [#/volume] in Blood by Automated count 6.7 thousand/uL 3 .8-10.8 White Blood Cell Count [place] ([facility]) Erythrocytes [#/volume] in Blood by Automated count 4.61 million/uL 4.20-5.80 Red Blood Cell Count [place] ([facility]) Hemoglobin [Mass/volume] in Blood 14.6 g/dL 13.2-17.1 He moglobin [facility] ([facility]) Hematocrit [Volume Fraction] of Blood by Automated count 43.9 % 38.5-50.0 Hematocrit [place] ([facility]) Erythrocyte mean corpuscular hemoglobin concentration [Mass/volume] by Automated count 33.3 g/dL 32.0-36.0 Mchc [facility] ([facility]) Erythrocyte mean corpuscular hemoglobin [Entitic mass] by Automated count 31.7 pg 27.0-33.0 Mch [facility] ([facility]) Erythrocyte mean corpuscular volume [Entitic volume] by Auto mated count 95.2 fL 80.0-100.0 Mcv [facility] ([facility]) Platelet mean volume [Entitic volume] in Blood by Hilario-Aniceto 11.5 f L 7.5-12.5 Mpv [facility] ([facility]) Platelets [#/volume] in Blood by Automated count 330 thousand/uL 14 0-400 Platelet Count [place] ([facility]) Erythrocyte distribution width [Ratio] by Automated count 12.4 % 11.0-15.0 Rdw [place] ([facility]) ID Date Data Source [id number] 07/26/2020 10:21:00 AM EDT [place] ([facility]) Name Value Range Interpretation Code Description Data Christel rce(s) Supporting Document(s) Glucose [Mass/volume] in Serum or Plasma 91 mg/dL 65-99 Glucose [place] ([facility]) Urea nitrogen [Mass/volume] in Serum or Plasma 15 mg/dL 7-25 Urea Nitrogen (BUN) [facility] ([facility]) Glomerular filtration rate/1.73 sq M.pre dicted among non-blacks [Volume Rate/Area] in Serum, Plasma or Blood by Creatinine-based formula (CKD-EPI) 103 mL/min/1.73m2 > or = 60 eGFR Non-afr. [place] [facility] ([facility]) Creatinine [Mass/volume] in Serum or Plasma 0.93 mg/dL 0.60-1.35 Creatinine [facility] ([facility]) Glomerular filtration rate/1.73 sq M.pre dicted among blacks [Volume Rate/Area] in Serum, Plasma or Blood by Creatinine-based formula (CKD-EPI) 119 mL/min/1.73m2 > or = 60 eGFR [facility] ([facility]) Sodium [Moles/volume] in Serum or Plasma 140 mmol/L 135-146 Sodium [facility] ([facility]) Urea nitrogen/Creatinine [Mass Ratio] in Serum or Plasma not applic able 6-22 BUN/creatinine Ratio [facility] ([facility]) Potassium [Moles/volume] in Serum or Plasma 4.1 mmol/L 3.5-5.3 Potassium [facility] ([facility]) Carbon dioxide, total [Moles/volume] in Serum or Plasma 30 mmol/L 20-32 Carbon Dioxide [facility] ([facility]) Chloride [Moles/volume] in Serum or Plasma 101 mmol/L 98-110 Chloride [facility] ([facility]) Albumin [Mass/volume] in Serum or Plasma 4.1 g/dL 3.6-5.1 Albumin [place] ([facility]) Protein [Mass/volume] in Serum or Plasma 7.2 g/dL 6.1-8.1 Protein, Total [facility] ([facility]) Calcium [Mass/volume] in Serum or Plasma 9.2 mg/dL 8.6-10.3 Calcium [place] ([facility]) Bilirubin.total [Mass/volume] in Serum or Plasma 0.7 mg/dL 0.2-1 .2 Bilirubin, Total [facility] ([facility]) Globulin [Mass/volume] in Serum by calculation 3.1 g/dL_(calc) 1.9- 3.7 Globulin [place] ([facility]) Albumin/Globulin [Mass Ratio] in Serum or Plasma 1.3 (calc) 1.0-2 .5 Albumin/globulin Ratio [facility] ([facility]) Alanine aminotransferase [Enzymatic activity/volume] in Seru m or Plasma 17 U/L 9-46 Alt [facility] ([facility]) Aspartate aminotransferase [Enzymatic activity/volume] in Serum or Plasma 13 U/L 10-40 Ast [facility] ([facility]) Alkaline phosphatase [Enzymatic activity/volume] in Serum or Plasma 101 U/L 36-130 Alkaline Phosphatase [facility] ([facility]) ID Date Data Source [id number] 07/26/2020 10:21:00 AM EDT [facility] ([facility]) Name Value Range Interpretation Code Description Data Christel rce(s) Supporting Document(s) Cholesterol [Mass/volume] in Serum or Plasma 192 mg/dL <200 Cholesterol, Total [facility] ([facility]) Triglyceride [Mass/volume] in Serum or Plasma 127 mg/dL <150 Triglycerides [facility] ([facility]) Cholesterol in LDL [Mass/volume] in Serum or Plasma by calculation 119 mg/dL_(calc) Above high normal LDL-cholesterol [facility] ([facility]) Cholesterol in HDL [Mass/volume] in Serum or Plasma 49 mg/dL > or = 40 HDL Cholesterol [facility] ([facility]) Cholesterol non HDL [Mass/volume] in Serum or Plasma 143 mg/dL_( calc) <130 Above high normal Non HDL Cholesterol [facility] ([facility]) Cholesterol.total/Cholesterol in HDL [Mass Ratio] in Serum o r Plasma 3.9 (calc) <5.0 Chol/hdlc Ratio [facility] ([facility]) ID Date Data Source [id number] 07/26/2020 10:21:00 AM EDT [facility] ([facility]) Name Value Range Interpretation Code Description Data Christel rce(s) Supporting Document(s) Calcidiol [Mass/volume] in Serum or Plasma 23 NG/mL 30-100 Below low normal Vitamin D,25-Oh,total,ia [facility] ([facility]) ID Date Data Source [id number] 07/26/2020 10:21:00 AM EDT [place] ([facility]) Name Value Range Interpretation Code Description Data Christel rce(s) Supporting Document(s) Thyrotropin [Units/volume] in Serum or Plasma 2.28 mIU/L 0.40-4.5 0 TSH W/reflex to FT4 [facility] ([facility]) ID Date Data Source [id number] 07/26/2020 10:21:00 AM EDT [place] ([facility]) Name Value Range Interpretation Code Description Data Christel rce(s) Supporting Document(s) Leukocytes [#/volume] in Blood by Automated count 6.7 thousand/uL 3 .8-10.8 White Blood Cell Count [facility] ([facility]) Erythrocytes [#/volume] in Blood by Automated count 4.61 million/uL 4.20-5.80 Red Blood Cell Count [place] ([facility]) Hematocrit [Volume Fraction] of Blood by Automated count 43.9 % 38.5-50.0 Hematocrit [facility] ([facility]) Hemoglobin [Mass/volume] in Blood 14.6 g/dL 13.2-17.1 He moglobin [facility] ([facility]) Erythrocyte mean corpuscular volume [Entitic volume] by Auto mated count 95.2 fL 80.0-100.0 Mcv [facility] ([facility]) Erythrocyte mean corpuscular hemoglobin [Entitic mass] by Automated count 31.7 pg 27.0-33.0 Mch [facility] ([facility]) Erythrocyte mean corpuscular hemoglobin concentration [Mass/volume] by Automated count 33.3 g/dL 32.0-36.0 Mchc [facility] ([facility]) Erythrocyte distribution width [Ratio] by Automated count 12.4 % 11.0-15.0 Rdw [facility] ([facility]) Platelets [#/volume] in Blood by Automated count 330 thousand/uL 14 0-400 Platelet Count [place] ([facility]) Platelet mean volume [Entitic volume] in Blood by Susan 11.5 f L 7.5-12.5 Mpv [facility] ([facility]) ID Date Data Source [id number] 07/26/2020 10:21:00 AM EDT [facility] ([facility]) Name Value Range Interpretation Code Description Data Christel rce(s) Supporting Document(s) Urea nitrogen [Mass/volume] in Serum or Plasma 15 mg/dL 7-25 Urea Nitrogen (BUN) [facility] ([facility]) Glucose [Mass/volume] in Serum or Plasma 91 mg/dL 65-99 Glucose [facility] ([facility]) Creatinine [Mass/volume] in Serum or Plasma 0.93 mg/dL 0.60-1.35 Creatinine [facility] ([facility]) Glomerular filtration rate/1.73 sq M.pre dicted among non-blacks [Volume Rate/Area] in Serum, Plasma or Blood by Creatinine-based formula (CKD-EPI) 103 mL/min/1.73m2 > or = 60 eGFR Non-afr. [place] [facility] ([facility]) Glomerular filtration rate/1.73 sq M.pre dicted among blacks [Volume Rate/Area] in Serum, Plasma or Blood by Creatinine-based formula (CKD-EPI) 119 mL/min/1.73m2 > or = 60 eGFR [facility] ([facility]) Urea nitrogen/Creatinine [Mass Ratio] in Serum or Plasma not applic able 6-22 BUN/creatinine Ratio [facility] ([facility]) Sodium [Moles/volume] in Serum or Plasma 140 mmol/L 135-146 Sodium [facility] ([facility]) Potassium [Moles/volume] in Serum or Plasma 4.1 mmol/L 3.5-5.3 Potassium [facility] ([facility]) Carbon dioxide, total [Moles/volume] in Serum or Plasma 30 mmol/L 20-32 Carbon Dioxide [facility] ([facility]) Chloride [Moles/volume] in Serum or Plasma 101 mmol/L 98-110 Chloride [facility] ([facility]) Calcium [Mass/volume] in Serum or Plasma 9.2 mg/dL 8.6-10.3 Calcium [facility] ([facility]) Albumin [Mass/volume] in Serum or Plasma 4.1 g/dL 3.6-5.1 Albumin [facility] ([facility]) Protein [Mass/volume] in Serum or Plasma 7.2 g/dL 6.1-8.1 Protein, Total [facility] ([facility]) Albumin/Globulin [Mass Ratio] in Serum or Plasma 1.3 (calc) 1.0-2 .5 Albumin/globulin Ratio [facility] ([facility]) Globulin [Mass/volume] in Serum by calculation 3.1 g/dL_(calc) 1.9- 3.7 Globulin [facility] ([facility]) Bilirubin.total [Mass/volume] in Serum or Plasma 0.7 mg/dL 0.2-1 .2 Bilirubin, Total [facility] ([facility]) Alkaline phosphatase [Enzymatic activity/volume] in Serum or Plasma 101 U/L 36-130 Alkaline Phosphatase [facility] ([facility]) Aspartate aminotransferase [Enzymatic activity/volume] in Serum or Plasma 13 U/L 10-40 Ast [place] ([facility]) Alanine aminotransferase [Enzymatic activity/volume] in Seru m or Plasma 17 U/L 9-46 Alt [facility] ([facility]) ID Date Data Source [id number] 07/26/2020 10:21:00 AM EDT [place] ([facility]) Name Value Range Interpretation Code Description Data Christel rce(s) Supporting Document(s) Cholesterol [Mass/volume] in Serum or Plasma 192 mg/dL <200 Cholesterol, Total [facility] ([facility]) Cholesterol in HDL [Mass/volume] in Serum or Plasma 49 mg/dL > or = 40 HDL Cholesterol [facility] ([facility]) Triglyceride [Mass/volume] in Serum or Plasma 127 mg/dL <150 Triglycerides [facility] ([facility]) Cholesterol in LDL [Mass/volume] in Serum or Plasma by calculation 119 mg/dL_(calc) Above high normal LDL-cholesterol [facility] ([facility]) Cholesterol.total/Cholesterol in HDL [Mass Ratio] in Serum o r Plasma 3.9 (calc) <5.0 Chol/hdlc Ratio [facility] ([facility]) Cholesterol non HDL [Mass/volume] in Serum or Plasma 143 mg/dL_( calc) <130 Above high normal Non HDL Cholesterol [facility] ([facility]) ID Date Data Source [id number] 07/26/2020 10:21:00 AM EDT [facility]) Name Value Range Interpretation Code Description Data Christel rce(s) Supporting Document(s) Calcidiol [Mass/volume] in Serum or Plasma 23 NG/mL 30-100 Below low normal Vitamin D,25-Oh,total,ia [place] ([facility]) ID Date Data Source [id number] 07/26/2020 10:21:00 AM EDT [place] ([facility]) Name Value Range Interpretation Code Description Data Christel rce(s) Supporting Document(s) Thyrotropin [Units/volume] in Serum or Plasma 2.28 mIU/L 0.40-4.5 0 TSH W/reflex to FT4 [place] ([facility]) ID Date Data Source [id number] 07/26/2020 10:21:00 AM EDT [place] ([facility]) Name Value Range Interpretation Code Description Data Christel rce(s) Supporting Document(s) Leukocytes [#/volume] in Blood by Automated count 6.7 thousand/uL 3 .8-10.8 White Blood Cell Count [place] ([facility]) Erythrocytes [#/volume] in Blood by Automated count 4.61 million/uL 4.20-5.80 Red Blood Cell Count [facility] ([facility]) Hematocrit [Volume Fraction] of Blood by Automated count 43.9 % 38.5-50.0 Hematocrit [facility] ([facility]) Hemoglobin [Mass/volume] in Blood 14.6 g/dL 13.2-17.1 He moglobin [facility] ([facility]) Erythrocyte mean corpuscular hemoglobin [Entitic mass] by Automated count 31.7 pg 27.0-33.0 Mch [facility] ([facility]) Erythrocyte mean corpuscular volume [Entitic volume] by Auto mated count 95.2 fL 80.0-100.0 Mcv [facility] ([facility]) Erythrocyte mean corpuscular hemoglobin concentration [Mass/volume] by Automated count 33.3 g/dL 32.0-36.0 Mchc [facility] ([facility]) Platelets [#/volume] in Blood by Automated count 330 thousand/uL 14 0-400 Platelet Count [facility] ([facility]) Erythrocyte distribution width [Ratio] by Automated count 12.4 % 11.0-15.0 Rdw [facility] ([facility]) Platelet mean volume [Entitic volume] in Blood by Susan 11.5 f L 7.5-12.5 Mpv [facility] ([facility]) ID Date Data Source [id number] 07/26/2020 10:21:00 AM EDT [place] ([facility]) Name Value Range Interpretation Code Description Data Christel rce(s) Supporting Document(s) Glucose [Mass/volume] in Serum or Plasma 91 mg/dL 65-99 Glucose [facility] ([facility]) Urea nitrogen [Mass/volume] in Serum or Plasma 15 mg/dL 7-25 Urea Nitrogen (BUN) [place] ([facility]) Creatinine [Mass/volume] in Serum or Plasma 0.93 mg/dL 0.60-1.35 Creatinine [facility] ([facility]) Glomerular filtration rate/1.73 sq M.pre dicted among non-blacks [Volume Rate/Area] in Serum, Plasma or Blood by Creatinine-based formula (CKD-EPI) 103 mL/min/1.73m2 > or = 60 eGFR Non-afr. [place] [facility] ([facility]) Glomerular filtration rate/1.73 sq M.pre dicted among blacks [Volume Rate/Area] in Serum, Plasma or Blood by Creatinine-based formula (CKD-EPI) 119 mL/min/1.73m2 > or = 60 eGFR [facility] ([facility]) Potassium [Moles/volume] in Serum or Plasma 4.1 mmol/L 3.5-5.3 [facility] Urea nitrogen/Creatinine [Mass Ratio] in Serum or Plasma not applic able 6-22 BUN/creatinine Ratio [place] ([facility]) Sodium [Moles/volume] in Serum or Plasma 140 mmol/L 135-146 Sodium [facility] ([facility]) Calcium [Mass/volume] in Serum or Plasma 9.2 mg/dL 8.6-10.3 Calcium [facility] ([facility]) Carbon dioxide, total [Moles/volume] in Serum or Plasma 30 mmol/L 20-32 Carbon Dioxide [facility] ([facility]) Chloride [Moles/volume] in Serum or Plasma 101 mmol/L 98-110 Chloride [facility] ([facility]) Protein [Mass/volume] in Serum or Plasma 7.2 g/dL 6.1-8.1 Protein, Total [place] ([facility]) Albumin [Mass/volume] in Serum or Plasma 4.1 g/dL 3.6-5.1 Albumin [place] ([facility]) Globulin [Mass/volume] in Serum by calculation 3.1 g/dL_(calc) 1.9- 3.7 Globulin [place] ([facility]) Albumin/Globulin [Mass Ratio] in Serum or Plasma 1.3 (calc) 1.0-2 .5 Albumin/globulin Ratio [place] ([facility]) Bilirubin.total [Mass/volume] in Serum or Plasma 0.7 mg/dL 0.2-1 .2 Bilirubin, Total [place] ([facility]) Alkaline phosphatase [Enzymatic activity/volume] in Serum or Plasma 101 U/L 36-130 Alkaline Phosphatase [place] ([facility]) Aspartate aminotransferase [Enzymatic activity/volume] in Serum or Plasma 13 U/L 10-40 Ast [facility] ([facility]) Alanine aminotransferase [Enzymatic activity/volume] in Seru m or Plasma 17 U/L 9-46 Alt [facility] ([facility]) ID Date Data Source [id number] 07/26/2020 10:21:00 AM EDT [place] ([facility]) Name Value Range Interpretation Code Description Data Christel rce(s) Supporting Document(s) Cholesterol [Mass/volume] in Serum or Plasma 192 mg/dL <200 Cholesterol, Total [place] ([facility]) Cholesterol in HDL [Mass/volume] in Serum or Plasma 49 mg/dL > or = 40 HDL Cholesterol [facility] ([facility]) Triglyceride [Mass/volume] in Serum or Plasma 127 mg/dL <150 Triglycerides [facility] ([facility]) Cholesterol in LDL [Mass/volume] in Serum or Plasma by calculation 119 mg/dL_(calc) Above high normal LDL-cholesterol [facility] ([facility]) Cholesterol.total/Cholesterol in HDL [Mass Ratio] in Serum o r Plasma 3.9 (calc) <5.0 Chol/hdlc Ratio [facility] ([facility]) Cholesterol non HDL [Mass/volume] in Serum or Plasma 143 mg/dL_( calc) <130 Above high normal Non HDL Cholesterol [facility] ([facility]) ID Date Data Source [id number] 05/25/2020 08:25:00 AM EDT [facility] ([facility]) Name Value Range Interpretation Code Description Data Christel rce(s) Supporting Document(s) total 25(oh) vitamin D 17.0 NG/mL 30.0-100.0 Below low normal T otal 25(Oh) Vitamin D [facility] ([facility]) ID Date Data Source [id number] 05/25/2020 08:25:00 AM EDT [facility] [facility]) Name Value Range Interpretation Code Description Data Christel rce(s) Supporting Document(s) cholesterol level 162 mg/dL <200 Cholesterol Level CASH ([facility]) triglycerides level 94 mg/dL <150 Triglycerides [place] CASH ([facility]) non-HDL-C 111 mg/dL Non-hdl-c CASH ([facility]) Cholesterol in LDL [Mass/volume] in Serum or Plasma 92 mg/dL <1 00 LDL Cholesterol CASH ([facility]) HDL cholesterol 51 mg/dL >40 HDL Cholesterol ATHE NA ([facility]) cholesterol risk ratio <5 Cholesterol R isk Ratio CASH ([facility]) ID Date Data Source [id number] 05/25/2020 08:25:00 AM EDT CASH ([facility]) Name Value Range Interpretation Code Description Data Christel rce(s) Supporting Document(s) glucose, fasting 94 mg/dL 70-100 Glucose, Fasting AT [facility] ([facility]) blood urea nitrogen 13 mg/dL 7-18 Blood Urea Nitro gen CASH ([facility]) glomerular filtration rate > 60.0 >60 Glomerula r Filtration Rate CASH ([facility]) sodium level 139 mEq/L 136-145 Sodium Level CASH ([facility]) creatinine for GFR 0.91 mg/dL 0.70-1.30 Creatinine for GF R CASH ([facility]) carbon dioxide level 29 mEq/L 21-32 Carbon Dioxide Level CASH ([facility]) potassium serum 3.9 mEq/L 3.5-5.1 Potassium Serum ATHE NA ([facility]) chloride level 103 mEq/L 98-107 Chloride Level CASH ([facility]) AST/SGOT 12 U/L 7-37 AST/SGOT CASH ([facility]) calcium level 9.1 mg/dL 8.5-10.1 Calcium Level CASH ( [facility]) anion gap 7 mEq/L 8-16 Below low normal Anion Gap CASH ( [facility]) ALT/SGPT 25 U/L 12-78 ALT/SGPT CASH ([facility]) bilirubin,total 0.4 mg/dL 0.2-1.0 Bilirubin,total ATHE ([facility]) alkaline phosphatase 107 U/L 45-117 Alkaline Phosph atase CASH ([facility]) total protein 7.4 gm/dL 6.4-8.2 Total Protein CASH ( [facility]) albumin 3.6 gm/dL 3.2-5.2 Albumin CASH ([facility]) albumin/globulin ratio Albumin/globu durga Ratio CASH ([facility]) ID Date Data Source [id number] 05/25/2020 08:25:00 AM EDT [facility]) Name Value Range Interpretation Code Description Data Christel rce(s) Supporting Document(s) ID Date Data Source [id number] 05/25/2020 08:25:00 AM EDT [place] ([facility]) Name Value Range Interpretation Code Description Data Christel rce(s) Supporting Document(s) total 25(oh) vitamin D 17.0 NG/mL 30.0-100.0 Below low normal T otal 25(Oh) Vitamin D CASH ([facility]) ID Date Data Source [id number] 05/25/2020 08:25:00 AM EDT [place] ([facility]) Name Value Range Interpretation Code Description Data Christel rce(s) Supporting Document(s) triglycerides level 94 mg/dL <150 Triglycerides [place] CASH ([facility]) non-HDL-C 111 mg/dL Non-hdl-c CASH ([facility]) Cholesterol in LDL [Mass/volume] in Serum or Plasma 92 mg/dL <1 00 LDL Cholesterol CASH ([facility]) HDL cholesterol 51 mg/dL >40 HDL [facility] cholesterol level 162 mg/dL <200 Cholesterol Level CASH ([facility]) cholesterol risk ratio <5 Cholesterol R isk Ratio [place] ([facility]) ID Date Data Source [id number] 05/25/2020 08:25:00 AM EDT [place] ([facility]) Name Value Range Interpretation Code Description Data Christel rce(s) Supporting Document(s) blood urea nitrogen 13 mg/dL 7-18 Blood Urea Nitro gen CASH ([facility]) glucose, fasting 94 mg/dL 70-100 Glucose, Fasting AT [facility] ([facility]) creatinine for GFR 0.91 mg/dL 0.70-1.30 Creatinine for GF R CASH ([facility]) glomerular filtration rate > 60.0 >60 Glomerula r Filtration Rate [place] ([facility]) potassium serum 3.9 mEq/L 3.5-5.1 Potassium Serum ATHE NA ([facility]) sodium level 139 mEq/L 136-145 Sodium Level CASH ([facility]) anion gap 7 mEq/L 8-16 Below low normal Anion Gap CASH ( [facility]) carbon dioxide level 29 mEq/L 21-32 Carbon Dioxide Level CASH ([facility]) calcium level 9.1 mg/dL 8.5-10.1 Calcium Level CASH ( [facility]) chloride level 103 mEq/L 98-107 Chloride Level CASH ([facility]) AST/SGOT 12 U/L 7-37 AST/SGOT CASH ([facility]) alkaline phosphatase 107 U/L 45-117 Alkaline Phosph atase CASH ([facility]) ALT/SGPT 25 U/L 12-78 ALT/SGPT CASH ([facility]) bilirubin,total 0.4 mg/dL 0.2-1.0 Bilirubin,total ATHE ([facility]) albumin/globulin ratio Albumin/globu durga Ratio CASH ([facility]) albumin 3.6 gm/dL 3.2-5.2 Albumin CASH ([facility]) total protein 7.4 gm/dL 6.4-8.2 Total Protein CASH ( [facility]) ID Date Data Source [id number] 05/25/2020 08:25:00 [facility] Name Value Range Interpretation Code Description Data Christel rce(s) Supporting Document(s) ID Date Data Source [id number] 05/25/2020 08:25:00 AM EDT CASH ([facility]) Name Value Range Interpretation Code Description Data Christel rce(s) Supporting Document(s) total 25(oh) vitamin D 17.0 NG/mL 30.0-100.0 Below low normal T otal 25(Oh) Vitamin D CASH ([facility]) ID Date Data Source [id number] 05/25/2020 08:25:00 AM EDT CASH ([facility]) Name Value Range Interpretation Code Description Data Christel rce(s) Supporting Document(s) triglycerides level 94 mg/dL <150 Triglycerides [place] CASH ([facility]) cholesterol level 162 mg/dL <200 Cholesterol Level CASH ([facility]) HDL cholesterol 51 mg/dL >40 HDL Cholesterol ATHE ([facility]) Cholesterol in LDL [Mass/volume] in Serum or Plasma 92 mg/dL <1 00 LDL Cholesterol CASH ([facility]) non-HDL-C 111 mg/dL Non-hdl-c CASH ([facility]) cholesterol risk ratio <5 Cholesterol R isk Ratio CASH ([facility]) ID Date Data Source [id number] 05/25/2020 08:25:00 AM EDT CASH ([facility]) Name Value Range Interpretation Code Description Data Christel rce(s) Supporting Document(s) glucose, fasting 94 mg/dL 70-100 Glucose, Fasting AT [facility]) blood urea nitrogen 13 mg/dL 7-18 Blood Urea Nitro gen CASH ([facility]) creatinine for GFR 0.91 mg/dL 0.70-1.30 Creatinine for GF R [place] ([facility]) glomerular filtration rate > 60.0 >60 Glomerula r Filtration Rate CASH ([facility]) sodium level 139 mEq/L 136-145 Sodium Level CASH ([facility]) potassium serum 3.9 mEq/L 3.5-5.1 Potassium Serum ATHE NA ([facility]) anion gap 7 mEq/L 8-16 Below low normal Anion Gap CASH ( [facility]) carbon dioxide level 29 mEq/L 21-32 Carbon Dioxide Level CASH ([facility]) chloride level 103 mEq/L 98-107 Chloride Level CASH ([facility]) ALT/SGPT 25 U/L 12-78 ALT/SGPT CASH ([facility]) calcium level 9.1 mg/dL 8.5-10.1 Calcium Level CASH ( [facility]) AST/SGOT 12 U/L 7-37 AST/SGOT CASH ([facility]) total protein 7.4 gm/dL 6.4-8.2 Total Protein CASH ( [facility]) alkaline phosphatase 107 U/L 45-117 Alkaline Phosph atase CASH ([facility]) bilirubin,total 0.4 mg/dL 0.2-1.0 Bilirubin,total ATHE NA ([facility]) albumin/globulin ratio Albumin/globu durga Ratio CASH ([facility]) albumin 3.6 gm/dL 3.2-5.2 Albumin CASH ([facility]) ID Date Data Source [id number] 05/25/2020 08:25:00 [facility] Name Value Range Interpretation Code Description Data Christel rce(s) Supporting Document(s) ID Date Data Source [id number] 05/25/2020 08:25:00 AM EDT CASH ([facility]) Name Value Range Interpretation Code Description Data Christel rce(s) Supporting Document(s) total 25(oh) vitamin D 17.0 NG/mL 30.0-100.0 Below low normal T otal 25(Oh) Vitamin D CASH ([facility]) ID Date Data Source [id number] 05/25/2020 08:25:00 [facility] Name Value Range Interpretation Code Description Data Christel rce(s) Supporting Document(s) triglycerides level 94 mg/dL <150 Triglycerides [place] CASH ([facility]) cholesterol level 162 mg/dL <200 Cholesterol Level CASH ([facility]) Cholesterol in LDL [Mass/volume] in Serum or Plasma 92 mg/dL <1 00 LDL Cholesterol CASH ([facility]) HDL cholesterol 51 mg/dL >40 HDL Cholesterol ATHE NA ([facility]) non-HDL-C 111 mg/dL Non-hdl-c CASH ([facility]) cholesterol risk ratio <5 Cholesterol R isk Ratio CASH ([facility]) ID Date Data Source [id number] 05/25/2020 08:25:00 AM EDT CASH ([facility]) Name Value Range Interpretation Code Description Data Christel rce(s) Supporting Document(s) glucose, fasting 94 mg/dL 70-100 Glucose, Fasting AT [facility] ([facility]) creatinine for GFR 0.91 mg/dL 0.70-1.30 Creatinine for GF R CASH ([facility]) blood urea nitrogen 13 mg/dL 7-18 Blood Urea Nitro gen CASH ([facility]) potassium serum 3.9 mEq/L 3.5-5.1 Potassium Serum ATHE ([facility]) glomerular filtration rate > 60.0 >60 Glomerula r Filtration Rate CASH ([facility]) sodium level 139 mEq/L 136-145 Sodium Level CASH ([facility]) chloride level 103 mEq/L 98-107 Chloride Level CASH ([facility]) carbon dioxide level 29 mEq/L 21-32 Carbon Dioxide Level CASH ([facility]) anion gap 7 mEq/L 8-16 Below low normal Anion Gap CASH ( [facility]) calcium level 9.1 mg/dL 8.5-10.1 Calcium Level CASH ( [facility]) AST/SGOT 12 U/L 7-37 AST/SGOT CASH ([facility]) ALT/SGPT 25 U/L 12-78 ALT/SGPT CASH ([facility]) bilirubin,total 0.4 mg/dL 0.2-1.0 Bilirubin,total ATHE NA ([facility]) alkaline phosphatase 107 U/L 45-117 Alkaline Phosph atase CASH ([facility]) total protein 7.4 gm/dL 6.4-8.2 Total Protein CASH ( [facility]) albumin 3.6 gm/dL 3.2-5.2 Albumin CASH ([facility]) albumin/globulin ratio Albumin/globu durga Ratio CASH ([facility]) ID Date Data Source [id number] 05/25/2020 08:25:00 AM EDT [facility] ([facility]) Name Value Range Interpretation Code Description Data Christel rce(s) Supporting Document(s) ID Date Data Source [id number] 05/25/2020 08:25:00 AM EDT CASH ([facility]) Name Value Range Interpretation Code Description Data Christel rce(s) Supporting Document(s) total 25(oh) vitamin D 17.0 NG/mL 30.0-100.0 Below low normal T otal 25(Oh) Vitamin D [place] ([facility]) ID Date Data Source [id number] 05/25/2020 08:25:00 AM EDT [place] ([facility]) Name Value Range Interpretation Code Description Data Christel rce(s) Supporting Document(s) triglycerides level 94 mg/dL <150 Triglycerides [place] CASH ([facility]) cholesterol level 162 mg/dL <200 Cholesterol Level CASH ([facility]) HDL cholesterol 51 mg/dL >40 HDL Cholesterol ATHE ([facility]) Cholesterol in LDL [Mass/volume] in Serum or Plasma 92 mg/dL <1 00 LDL Cholesterol CASH ([facility]) cholesterol risk ratio <5 Cholesterol R isk Ratio CASH ([facility]) non-HDL-C 111 mg/dL Non-hdl-c CASH ([facility]) ID Date Data Source [id number] 05/25/2020 08:25:00 AM EDT CASH ([facility]) Name Value Range Interpretation Code Description Data Christel rce(s) Supporting Document(s) glucose, fasting 94 mg/dL 70-100 Glucose, Fasting AT [facility] ([facility]) blood urea nitrogen 13 mg/dL 7-18 Blood Urea Nitro gen [place] ([facility]) creatinine for GFR 0.91 mg/dL 0.70-1.30 Creatinine for GF R CASH ([facility]) glomerular filtration rate > 60.0 >60 Glomerula r Filtration Rate CASH ([facility]) sodium level 139 mEq/L 136-145 Sodium Level CASH ([facility]) chloride level 103 mEq/L 98-107 Chloride Level CASH ([facility]) potassium serum 3.9 mEq/L 3.5-5.1 Potassium Serum ATHE NA ([facility]) carbon dioxide level 29 mEq/L 21-32 Carbon Dioxide Level CASH ([facility]) anion gap 7 mEq/L 8-16 Below low normal Anion Gap CASH ( [facility]) AST/SGOT 12 U/L 7-37 AST/SGOT CASH ([facility]) calcium level 9.1 mg/dL 8.5-10.1 Calcium Level CASH ( [facility]) alkaline phosphatase 107 U/L 45-117 Alkaline Phosph atase CASH ([facility]) ALT/SGPT 25 U/L 12-78 ALT/SGPT CASH ([facility]) albumin 3.6 gm/dL 3.2-5.2 Albumin CASH ([facility]) albumin/globulin ratio Albumin/globu durga Ratio CASH ([facility]) total protein 7.4 gm/dL 6.4-8.2 Total Protein CASH ( [facility]) bilirubin,total 0.4 mg/dL 0.2-1.0 Bilirubin,total ATHE NA ([facility]) ID Date Data Source [id number] 05/25/2020 08:25:00 AM EDT [place] ([facility]) Name Value Range Interpretation Code Description Data Christel rce(s) Supporting Document(s) ID Date Data Source [id number] 05/25/2020 08:25:00 AM EDT [place] ([facility]) Name Value Range Interpretation Code Description Data Christel rce(s) Supporting Document(s) total 25(oh) vitamin D 17.0 NG/mL 30.0-100.0 Below low normal T otal 25(Oh) Vitamin D [facility] ([facility]) ID Date Data Source [id number] 05/25/2020 08:25:00 AM EDT [place] ([facility]) Name Value Range Interpretation Code Description Data Christel rce(s) Supporting Document(s) triglycerides level 94 mg/dL <150 Triglycerides [place] C[facility] ([facility]) cholesterol level 162 mg/dL <200 Cholesterol Level CASH ([facility]) Cholesterol in LDL [Mass/volume] in Serum or Plasma 92 mg/dL <1 00 LDL Cholesterol CASH ([facility]) HDL cholesterol 51 mg/dL >40 HDL Cholesterol ATHE ([facility]) non-HDL-C 111 mg/dL Non-hdl-c CASH ([facility]) cholesterol risk ratio <5 Cholesterol R isk Ratio [facility]ASH ([facility]) ID Date Data Source [id number] 05/25/2020 08:25:00 AM EDT [place] ([facility]) Name Value Range Interpretation Code Description Data Christel rce(s) Supporting Document(s) blood urea nitrogen 13 mg/dL 7-18 Blood Urea Nitro gen CASH ([facility]) glucose, fasting 94 mg/dL 70-100 Glucose, Fasting AT [facility]) creatinine for GFR 0.91 mg/dL 0.70-1.30 Creatinine for GF R CASH ([facility]) glomerular filtration rate > 60.0 >60 Glomerula r Filtration Rate CASH ([facility]) potassium serum 3.9 mEq/L 3.5-5.1 Potassium Serum ATHE NA ([facility]) sodium level 139 mEq/L 136-145 Sodium Level CASH ([facility]) carbon dioxide level 29 mEq/L 21-32 Carbon Dioxide Level CASH ([facility]) chloride level 103 mEq/L 98-107 Chloride Level [place] ([facility]) anion gap 7 mEq/L 8-16 Below low normal Anion Gap [place] ( [facility]) calcium level 9.1 mg/dL 8.5-10.1 Calcium Level CASH ( [facility]) bilirubin,total 0.4 mg/dL 0.2-1.0 Bilirubin,total ATHE NA ([facility]) AST/SGOT 12 U/L 7-37 AST/SGOT [facility] ([facility]) alkaline phosphatase 107 U/L 45-117 Alkaline Phosph atase CASH ([facility]) ALT/SGPT 25 U/L 12-78 ALT/SGPT CASH ([facility]) albumin 3.6 gm/dL 3.2-5.2 Albumin CASH ([facility]) total protein 7.4 gm/dL 6.4-8.2 Total Protein CASH ( [facility]) albumin/globulin ratio Albumin/globu durga Ratio CASH ([facility]) ID Date Data Source [id number] 05/25/2020 08:25:00 AM EDT [facility] ([facility]) Name Value Range Interpretation Code Description Data Christel rce(s) Supporting Document(s) ID Date Data Source [id number] 05/12/2020 09:00:00 AM EDT CASH ([facility]) Name Value Range Interpretation Code Description Data Chirstel rce(s) Supporting Document(s) total 25(oh) vitamin D 17.5 NG/mL 30.0-100.0 Below low normal T otal 25(Oh) Vitamin D CASH ([facility]) ID Date Data Source [id number] 05/12/2020 09:00:00 AM EDT [facility]ASH ([facility]) Name Value Range Interpretation Code Description Data Christel rce(s) Supporting Document(s) thyroid stimulating hormone 2.260 uIU/mL 0.358-3.740 Thyroid Stimulating Hormone CASH ([facility]) ID Date Data Source [id number] 05/12/2020 09:00:00 AM EDT [place] ([facility]) Name Value Range Interpretation Code Description Data Christel rce(s) Supporting Document(s) cholesterol level 235 mg/dL <200 Above high normal Cholesterol Level CASH ([facility]) triglycerides level 99 mg/dL <150 Triglycerides [place] CASH ([facility]) HDL cholesterol 55 mg/dL >40 HDL Cholesterol ATHE ([facility]) non-HDL-C 180 mg/dL Non-hdl-c CASH ([facility]) cholesterol risk ratio <5 Cholesterol R isk Ratio CASH ([facility]) Cholesterol in LDL [Mass/volume] in Serum or Plasma 160 mg/dL <100 Above high normal LDL Cholesterol CASH ([facility]) ID Date Data Source [id number] 05/12/2020 09:00:00 AM EDT [facility] ([facility]) Name Value Range Interpretation Code Description Data Christel rce(s) Supporting Document(s) creatinine for GFR 0.93 mg/dL 0.70-1.30 Creatinine for GF R CASH ([facility]) blood urea nitrogen 10 mg/dL 7-18 Blood Urea Nitro gen CASH ([facility]) glucose, fasting 89 mg/dL 70-100 Glucose, Fasting AT [facility]) sodium level 139 mEq/L 136-145 Sodium Level [facility] ([facility]) potassium serum 4.7 mEq/L 3.5-5.1 Potassium Serum ATHE NA ([facility]) glomerular filtration rate > 60.0 >60 Glomerula r Filtration Rate CASH ([facility]) calcium level 9.2 mg/dL 8.5-10.1 Calcium Level CASH ( [facility]) anion gap 6 mEq/L 8-16 Below low normal Anion Gap CASH ( [facility]) chloride level 104 mEq/L 98-107 Chloride Level CASH ([facility]) carbon dioxide level 29 mEq/L 21-32 Carbon Dioxide Level [facility] ([facility]) ALT/SGPT 28 U/L 12-78 ALT/SGPT CASH ([facility]) alkaline phosphatase 110 U/L 45-117 Alkaline Phosph atase CASH ([facility]) AST/SGOT 13 U/L 7-37 AST/SGOT C[facility] ([facility]) albumin/globulin ratio Albumin/globu durga Ratio CASH ([facility]) total protein 7.9 gm/dL 6.4-8.2 Total Protein CASH ( [facility]) bilirubin,total 0.4 mg/dL 0.2-1.0 Bilirubin,total ATHE NA ([facility]) albumin 4.0 gm/dL 3.2-5.2 Albumin C[facility] ([facility]) ID Date Data Source [id number] 05/12/2020 09:00:00 AM EDT [facility] ([facility]) Name Value Range Interpretation Code Description Data Christel rce(s) Supporting Document(s) white blood count 5.8 10 4.0-10.0 White Blood Count C[facility] ([facility]) red blood count 4.92 10 4.30-6.10 Red Blood Count AT[facility] ([facility]) hemoglobin 15.5 g/dL 13.5-17.5 Hemoglobin CASH ([facility]) mean corpuscular volume 98.4 fL 80.0-96.0 Above high normal Mean Corpuscular Volume CASH ([facility]) hematocrit 48.4 % 42.0-52.0 Hematocrit CASH ([facility]) mean corpuscular hemoglobin 31.5 pg 27.0-33.0 Mean Cor puscular Hemoglobin CASH ([facility]) platelet count, automated 352 10 150-450 Platelet C ount, Automated CASH ([facility]) red cell distribution width 12.9 % 11.5-14.5 Red Cell Distribution Width CASH ([facility]) mean corpuscular HGB conc 32.0 g/dL 32.0-36.5 Mean Corpu scular HGB Conc CASH ([facility]) mono % 9.2 % 2.0-8.0 Above high normal [place] % CASH ([facility]) lymph % 28.2 % 24.0-44.0 Lymph % C[facility] ([facility]) eos % 3.3 % 0.0-3.0 Above high normal Eos % CASH ([facility]) neutrophils % 58.1 % 36.0-66.0 Neutrophils % CASH ( [facility]) baso % 0.7 % 0.0-1.0 Baso % CASH ([facility]) immature granulocyte % 0.5 % 0-3.0 Immature Gran ulocyte % [facility] [facility]) neutrophils # 3.3 10 1.5-8.5 Neutrophils # CASH ( [facility]) nucleated red blood cell % 0.0 % 0-0 Nucleated Red Blood Cell % CASH ([facility]) mono # 0.5 10 0.0-0.8 [place] # CASH ([facility]) lymph # 1.6 10 1.5-5.0 Lymph # [facility]ASH ([facility]) eos # 0.2 10 0.0-0.5 Eos # [facility] ([facility]) baso # 0.0 10 0.0-0.2 Baso # [facility] ([facility]) ID Date Data Source [id number] 05/12/2020 09:00:00 AM EDT [place] ([facility]) Name Value Range Interpretation Code Description Data Christel rce(s) Supporting Document(s) total 25(oh) vitamin D 17.5 NG/mL 30.0-100.0 Below low normal T otal 25(Oh) Vitamin D [place] ([facility]) ID Date Data Source [id number] 05/12/2020 09:00:00 AM EDT [place] ([facility]) Name Value Range Interpretation Code Description Data Christel rce(s) Supporting Document(s) thyroid stimulating hormone 2.260 uIU/mL 0.358-3.740 Thyroid Stimulating Hormone [place] ([facility]) ID Date Data Source [id number] 05/12/2020 09:00:00 AM EDT [place] ([facility]) Name Value Range Interpretation Code Description Data Christel rce(s) Supporting Document(s) cholesterol risk ratio <5 Cholesterol R isk Ratio [facility] ([facility]) non-HDL-C 180 mg/dL Non-hdl-c [facility] ([facility]) cholesterol level 235 mg/dL <200 Above high normal Cholesterol Level [facility] ([facility]) HDL cholesterol 55 mg/dL >40 HDL Cholesterol [facility] ([facility]) triglycerides level 99 mg/dL <150 Triglycerides [place] [facility] ([facility]) Cholesterol in LDL [Mass/volume] in Serum or Plasma 160 mg/dL <100 Above high normal LDL Cholesterol C[facility] ([facility]) ID Date Data Source [id number] 05/12/2020 09:00:00 AM EDT [facility] ([facility]) Name Value Range Interpretation Code Description Data Christel rce(s) Supporting Document(s) glucose, fasting 89 mg/dL 70-100 Glucose, Fasting AT [facility]) sodium level 139 mEq/L 136-145 Sodium Level [facility] ([facility]) creatinine for GFR 0.93 mg/dL 0.70-1.30 Creatinine for GF R [facility] ([facility]) glomerular filtration rate > 60.0 >60 Glomerula r Filtration Rate [facility] ([facility]) blood urea nitrogen 10 mg/dL 7-18 Blood Urea Nitro gen [facility] ([facility]) carbon dioxide level 29 mEq/L 21-32 Carbon Dioxide Level [facility] ([facility]) anion gap 6 mEq/L 8-16 Below low normal Anion Gap C[facility] ( [facility]) calcium level 9.2 mg/dL 8.5-10.1 Calcium Level CASH ( [facility]) potassium serum 4.7 mEq/L 3.5-5.1 Potassium Serum [facility] ([facility]) chloride level 104 mEq/L 98-107 Chloride Level [facility] ([facility]) ALT/SGPT 28 U/L 12-78 ALT/SGPT [facility] ([facility]) AST/SGOT 13 U/L 7-37 AST/SGOT [facility] ([facility]) bilirubin,total 0.4 mg/dL 0.2-1.0 Bilirubin,total ATHE NA ([facility]) alkaline phosphatase 110 U/L 45-117 Alkaline Phosph atase [facility] ([facility]) total protein 7.9 gm/dL 6.4-8.2 Total Protein CASH ( [facility]) albumin/globulin ratio Albumin/globu durga Ratio C[facility] ([facility]) albumin 4.0 gm/dL 3.2-5.2 Albumin [facility] ([facility]) ID Date Data Source [id number] 05/12/2020 09:00:00 AM EDT [facility] ([facility]) Name Value Range Interpretation Code Description Data Christel rce(s) Supporting Document(s) white blood count 5.8 10 4.0-10.0 White Blood Count [facility] ([facility]) hemoglobin 15.5 g/dL 13.5-17.5 Hemoglobin C[facility] ([facility]) hematocrit 48.4 % 42.0-52.0 Hematocrit C[facility] ([facility]) red blood count 4.92 10 4.30-6.10 Red Blood Count ATHE NA ([facility]) mean corpuscular HGB conc 32.0 g/dL 32.0-36.5 Mean Corpu scular HGB Conc CASH ([facility]) mean corpuscular hemoglobin 31.5 pg 27.0-33.0 Mean Cor puscular Hemoglobin CASH ([facility]) red cell distribution width 12.9 % 11.5-14.5 Red Cell Distribution Width CASH ([facility]) mean corpuscular volume 98.4 fL 80.0-96.0 Above high normal Mean Corpuscular Volume CASH ([facility]) platelet count, automated 352 10 150-450 Platelet C ount, Automated CASH ([facility]) lymph % 28.2 % 24.0-44.0 Lymph % CASH ([facility]) neutrophils % 58.1 % 36.0-66.0 Neutrophils % CASH ( [facility]) mono % 9.2 % 2.0-8.0 Above high normal [place] % CASH ([facility]) eos % 3.3 % 0.0-3.0 Above high normal Eos % [facility] ([facility]) baso % 0.7 % 0.0-1.0 Baso % CASH ([facility]) nucleated red blood cell % 0.0 % 0-0 Nucleated Red Blood Cell % CASH ([facility]) neutrophils # 3.3 10 1.5-8.5 Neutrophils # CASH ( [facility]) immature granulocyte % 0.5 % 0-3.0 Immature Gran ulocyte % CASH ([facility]) baso # 0.0 10 0.0-0.2 [place] # CASH ([facility]) lymph # 1.6 10 1.5-5.0 Lymph # [facility] ([facility]) eos # 0.2 10 0.0-0.5 Eos # CASH ([facility]) mono # 0.5 10 0.0-0.8 [place] # C[facility] ([facility]) ID Date Data Source [id number] 05/12/2020 09:00:00 AM EDT [place] ([facility]) Name Value Range Interpretation Code Description Data Christel rce(s) Supporting Document(s) total 25(oh) vitamin D 17.5 NG/mL 30.0-100.0 Below low normal T otal 25(Oh) Vitamin D [place] ([facility]) ID Date Data Source [id number] 05/12/2020 09:00:00 AM EDT [place] ([facility]) Name Value Range Interpretation Code Description Data Christel rce(s) Supporting Document(s) thyroid stimulating hormone 2.260 uIU/mL 0.358-3.740 Thyroid Stimulating Hormone [facility] ([facility]) ID Date Data Source [id number] 05/12/2020 09:00:00 AM EDT [facility] ([facility]) Name Value Range Interpretation Code Description Data Christel rce(s) Supporting Document(s) triglycerides level 99 mg/dL <150 Triglycerides [place] C[facility] ([facility]) cholesterol level 235 mg/dL <200 Above high normal Cholesterol Level CASH ([facility]) HDL cholesterol 55 mg/dL >40 HDL Cholesterol ATHE ([facility]) non-HDL-C 180 mg/dL Non-hdl-c [facility] ([facility]) cholesterol risk ratio <5 Cholesterol R isk Ratio CASH ([facility]) Cholesterol in LDL [Mass/volume] in Serum or Plasma 160 mg/dL <100 Above high normal LDL Cholesterol CASH ([facility]) ID Date Data Source [id number] 05/12/2020 09:00:00 AM EDT [facility] ([facility]) Name Value Range Interpretation Code Description Data Christel rce(s) Supporting Document(s) glucose, fasting 89 mg/dL 70-100 Glucose, Fasting AT [facility]) blood urea nitrogen 10 mg/dL 7-18 Blood Urea Nitro gen CASH ([facility]) glomerular filtration rate > 60.0 >60 Glomerula r Filtration Rate CASH ([facility]) creatinine for GFR 0.93 mg/dL 0.70-1.30 Creatinine for GF R CASH ([facility]) potassium serum 4.7 mEq/L 3.5-5.1 Potassium Serum ATHE NA ([facility]) sodium level 139 mEq/L 136-145 Sodium Level CASH ([facility]) chloride level 104 mEq/L 98-107 Chloride Level CASH ([facility]) carbon dioxide level 29 mEq/L 21-32 Carbon Dioxide Level [facility] ([facility]) ALT/SGPT 28 U/L 12-78 ALT/SGPT [facility] ([facility]) AST/SGOT 13 U/L 7-37 AST/SGOT [facility] ([facility]) anion gap 6 mEq/L 8-16 Below low normal Anion Gap CASH ( [facility]) calcium level 9.2 mg/dL 8.5-10.1 Calcium Level CASH ( [facility]) alkaline phosphatase 110 U/L 45-117 Alkaline Phosph atase [facility] ([facility]) total protein 7.9 gm/dL 6.4-8.2 Total Protein CASH ( [facility]) bilirubin,total 0.4 mg/dL 0.2-1.0 Bilirubin,total ATHE NA ([facility]) albumin 4.0 gm/dL 3.2-5.2 Albumin [facility] ([facility]) albumin/globulin ratio Albumin/globu durga Ratio [facility] ([facility]) ID Date Data Source [id number] 05/12/2020 09:00:00 AM EDT [place] ([facility]) Name Value Range Interpretation Code Description Data Christel rce(s) Supporting Document(s) white blood count 5.8 10 4.0-10.0 White Blood Count [facility] ([facility]) red blood count 4.92 10 4.30-6.10 Red Blood Count AT[facility] ([facility]) hematocrit 48.4 % 42.0-52.0 Hematocrit [facility] ([facility]) hemoglobin 15.5 g/dL 13.5-17.5 Hemoglobin [facility] ([facility]) mean corpuscular hemoglobin 31.5 pg 27.0-33.0 Mean Cor puscular Hemoglobin [facility] ([facility]) mean corpuscular volume 98.4 fL 80.0-96.0 Above high normal Mean Corpuscular Volume CASH ([facility]) mean corpuscular HGB conc 32.0 g/dL 32.0-36.5 Mean Corpu scular HGB Conc [facility] ([facility]) platelet count, automated 352 10 150-450 Platelet C ount, Automated [facility] ([facility]) red cell distribution width 12.9 % 11.5-14.5 Red Cell Distribution Width C[facility] ([facility]) neutrophils % 58.1 % 36.0-66.0 Neutrophils % CASH ( [facility]) lymph % 28.2 % 24.0-44.0 Lymph % [facility] ([facility]) mono % 9.2 % 2.0-8.0 Above high normal [place] % CASH ([facility]) eos % 3.3 % 0.0-3.0 Above high normal Eos % CASH ([facility]) baso % 0.7 % 0.0-1.0 Baso % CASH ([facility]) immature granulocyte % 0.5 % 0-3.0 Immature Gran ulocyte % CASH ([facility]) nucleated red blood cell % 0.0 % 0-0 Nucleated Red Blood Cell % CASH ([facility]) neutrophils # 3.3 10 1.5-8.5 Neutrophils # CASH ( [facility]) lymph # 1.6 10 1.5-5.0 Lymph # CASH ([facility]) eos # 0.2 10 0.0-0.5 [place] # CASH ([facility]) mono # 0.5 10 0.0-0.8 [place] # CASH ([facility]) baso # 0.0 10 0.0-0.2 [place] # CASH ([facility]) ID Date Data Source [id number] 05/12/2020 09:00:00 AM EDT [place] ([facility]) Name Value Range Interpretation Code Description Data Christel rce(s) Supporting Document(s) total 25(oh) vitamin D 17.5 NG/mL 30.0-100.0 Below low normal T otal 25(Oh) Vitamin D [place] ([facility]) ID Date Data Source [id number] 05/12/2020 09:00:00 AM EDT [place] ([facility]) Name Value Range Interpretation Code Description Data Christel rce(s) Supporting Document(s) thyroid stimulating hormone 2.260 uIU/mL 0.358-3.740 Thyroid Stimulating Hormone [facility] ([facility]) ID Date Data Source [id number] 05/12/2020 09:00:00 AM EDT [place] ([facility]) Name Value Range Interpretation Code Description Data Christel rce(s) Supporting Document(s) triglycerides level 99 mg/dL <150 Triglycerides [place] C[facility] ([facility]) cholesterol level 235 mg/dL <200 Above high normal Cholesterol Level CASH ([facility]) cholesterol risk ratio <5 Cholesterol R isk Ratio CASH ([facility]) HDL cholesterol 55 mg/dL >40 HDL Cholesterol AT[facility] ([facility]) non-HDL-C 180 mg/dL Non-hdl-c C[facility] ([facility]) Cholesterol in LDL [Mass/volume] in Serum or Plasma 160 mg/dL <100 Above high normal LDL Cholesterol CASH ([facility]) ID Date Data Source [id number] 05/12/2020 09:00:00 AM EDT [facility] ([facility]) Name Value Range Interpretation Code Description Data Christel rce(s) Supporting Document(s) glucose, fasting 89 mg/dL 70-100 Glucose, Fasting AT [facility]) glomerular filtration rate > 60.0 >60 Glomerula r Filtration Rate CASH ([facility]) creatinine for GFR 0.93 mg/dL 0.70-1.30 Creatinine for GF R CASH ([facility]) blood urea nitrogen 10 mg/dL 7-18 Blood Urea Nitro gen CASH ([facility]) sodium level 139 mEq/L 136-145 Sodium Level CASH ([facility]) potassium serum 4.7 mEq/L 3.5-5.1 Potassium Serum ATHE NA ([facility]) chloride level 104 mEq/L 98-107 Chloride Level [place] ([facility]) anion gap 6 mEq/L 8-16 Below low normal Anion Gap CASH ( [facility]) carbon dioxide level 29 mEq/L 21-32 Carbon Dioxide Level CASH ([facility]) ALT/SGPT 28 U/L 12-78 ALT/SGPT [facility] ([facility]) AST/SGOT 13 U/L 7-37 AST/SGOT C[facility] ([facility]) calcium level 9.2 mg/dL 8.5-10.1 Calcium Level CASH ( [facility]) alkaline phosphatase 110 U/L 45-117 Alkaline Phosph atase [facility] ([facility]) total protein 7.9 gm/dL 6.4-8.2 Total Protein CASH ( [facility]) bilirubin,total 0.4 mg/dL 0.2-1.0 Bilirubin,total ATHE NA ([facility]) albumin 4.0 gm/dL 3.2-5.2 Albumin CASH ([facility]) albumin/globulin ratio Albumin/globu durga Ratio [facility]ASH ([facility]) ID Date Data Source [id number] 05/12/2020 09:00:00 AM EDT [facility] ([facility]) Name Value Range Interpretation Code Description Data Christel rce(s) Supporting Document(s) white blood count 5.8 10 4.0-10.0 White Blood Count [facility] ([facility]) red blood count 4.92 10 4.30-6.10 Red Blood Count AT[facility] ([facility]) hematocrit 48.4 % 42.0-52.0 Hematocrit CASH ([facility]) hemoglobin 15.5 g/dL 13.5-17.5 Hemoglobin CASH ([facility]) mean corpuscular volume 98.4 fL 80.0-96.0 Above high normal Mean Corpuscular Volume CASH ([facility]) mean corpuscular hemoglobin 31.5 pg 27.0-33.0 Mean Cor puscular Hemoglobin CASH ([facility]) mean corpuscular HGB conc 32.0 g/dL 32.0-36.5 Mean Corpu scular HGB Conc CASH ([facility]) red cell distribution width 12.9 % 11.5-14.5 Red Cell Distribution Width CASH ([facility]) platelet count, automated 352 10 150-450 Platelet C ount, Automated C[facility] ([facility]) neutrophils % 58.1 % 36.0-66.0 Neutrophils % CASH ( [facility]) lymph % 28.2 % 24.0-44.0 Lymph % [place] ([facility]) mono % 9.2 % 2.0-8.0 Above high normal [place] % CASH ([facility]) eos % 3.3 % 0.0-3.0 Above high normal Eos % [place] ([facility]) baso % 0.7 % 0.0-1.0 Baso % [place] ([facility]) nucleated red blood cell % 0.0 % 0-0 Nucleated Red Blood Cell % [place] ([facility]) immature granulocyte % 0.5 % 0-3.0 Immature Gran ulocyte % [place] ([facility]) neutrophils # 3.3 10 1.5-8.5 Neutrophils # [place] ( [facility]) eos # 0.2 10 0.0-0.5 Eos # CASH ([facility]) mono # 0.5 10 0.0-0.8 [place] # [place] ([facility]) lymph # 1.6 10 1.5-5.0 Lymph # [place] ([facility]) baso # 0.0 10 0.0-0.2 [place] # [place] ([facility]) ID Date Data Source [id number] 03/03/2020 12:00:00 AM EST [facility] Name Value Range Interpretation Code Description Data Christel rce(s) Supporting Document(s) SARS-CoV2 Rapid Antigen Negative [facility] This lab was ordered by [facility] and reported by [facility]. ID Date Data Source [id number] 02/16/2020 12:00:00 AM EST [facility] Name Value Range Interpretation Code Description Data Christel rce(s) Supporting Document(s) SARS-CoV2 Rapid Antigen [facility] This lab was ordered by [facility] and reported by [facility]. Procedure Social History Code Duration Value Status Description Data Source(s ) Smoking 11/08/2020 12:00:00 AM EDT Patient is a former smoker completed Patient is a former smoker [facility] ([facility]) Vital Signs ID Date Data Source [id number] Name Value Range Interpretation Code Description Data Source(s) Systolic blood pressure 128 mm[Hg] 128 mm[Hg] [facility] ([facility]) Diastolic blood pressure 70 mm[Hg] 70 mm[Hg] [facility] ([facility]) Body height 67 [in_i] 67 [in_i] [facility] ([facility]) 5'7" Body weight 257.00 [lb_av] 257.00 [lb_av] [facility] ([facility]) Body mass index (BMI) [Ratio] 40.2 kg/m2 40.2 k g/m2 [facility] ([facility]) [place] body weight 148 [lb_av] 148 [lb_av] [facility] ([facility]) Body weight 116.575 kg 116.575 kg [facility] ([facility]) Body surface area Derived from formula 2.25 m2 2.25 m2 [facility] ([facility]) Oxygen saturation in Arterial blood by Pulse oximetry 97 % 97 % [facility] ([facility]) Diastolic blood pressure 70 mm[Hg] 70 mm[Hg] [facility] ([facility]) Heart rate 81 /min 81 /min [facility] ([facility]) Body height 67 [in_i] 67 [in_i] [facility] ([facility]) 5'7" Systolic blood pressure 138 mm[Hg] 138 mm[Hg] [facility] ([facility]) Body weight 259.00 [lb_av] 259.00 [lb_av] [facility] ([facility]) Body mass index (BMI) [Ratio] 40.6 kg/m2 40.6 k g/m2 [facility] ([facility]) [place] body weight 148 [lb_av] 148 [lb_av] [facility] ([facility]) Body weight 117.482 kg 117.482 kg [facility] ([facility]) Body surface area Derived from formula 2.26 m2 2.26 m2 [facility] ([facility]) Oxygen saturation in Arterial blood by Pulse oximetry 96 % 96 % [facility] ([facility]) Body height 67 [in_i] 67 [in_i] [facility] ([facility]) 5'7" Body weight 254.50 [lb_av] 254.50 [lb_av] [facility] ([facility]) Body mass index (BMI) [Ratio] 39.9 kg/m2 39.9 k g/m2 [facility] ([facility]) [place] body weight 148 [lb_av] 148 [lb_av] [facility] ([facility]) Systolic blood pressure 120 mm[Hg] 120 mm[Hg] [facility] ([facility]) Body weight 115.441 kg 115.441 kg [facility] ([facility]) Body surface area Derived from formula 2.24 m2 2.24 m2 [facility] ([facility]) Diastolic blood pressure 70 mm[Hg] 70 mm[Hg] [facility] ([facility]) Heart rate 79 /min 79 /min [facility] ([facility]) Oxygen saturation in Arterial blood by Pulse oximetry 98 % 98 % [facility] ([facility]) Body temperature 97.7 [degF] 97.7 [degF] [facility] ([facility]) Body height 67 [in_i] 67 [in_i] [facility] ([facility]) 5'7" Body weight 252.00 [lb_av] 252.00 [lb_av] [facility] ([facility]) Body mass index (BMI) [Ratio] 39.5 kg/m2 39.5 k g/m2 [facility] ([facility]) [place] body weight 148 [lb_av] 148 [lb_av] [facility] ([facility]) Body weight 114.307 kg 114.307 kg [facility] ([facility]) Body surface area Derived from formula 2.23 m2 2.23 m2 [facility] ([facility]) Systolic blood pressure 118 mm[Hg] 118 mm[Hg] [facility] ([facility]) Diastolic blood pressure 80 mm[Hg] 80 mm[Hg] [facility] ([facility]) Heart rate 87 /min 87 /min [facility] ([facility]) Body height 67 [in_i] 67 [in_i] [facility] ([facility]) 5'7" Oxygen saturation in Arterial blood by Pulse oximetry 98 % 98 % [facility] ([facility]) Body temperature 97.7 [degF] 97.7 [degF] [facility] ([facility]) Body weight 252.00 [lb_av] 252.00 [lb_av] [facility] ([facility]) Body mass index (BMI) [Ratio] 39.5 kg/m2 39.5 k g/m2 [facility] ([facility]) [place] body weight 148 [lb_av] 148 [lb_av] [facility] ([facility]) Body weight 114.307 kg 114.307 kg [facility] ([facility]) Body surface area Derived from formula 2.23 m2 2.23 m2 [facility] ([facility]) Body height 68.4 [in_i] 68.4 [in_i] [facility] ([facility]) Body height 68.4 [in_i] 68.4 [in_i] [facility] ([facility]) Body height 68.4 [in_i] 68.4 [in_i] [facility] ([facility]) Body height 68.4 [in_i] 68.4 [in_i] [facility] ([facility]) Body height 68.4 [in_i] 68.4 [in_i] [facility] ([facility]) Body height 68.4 [in_i] 68.4 [in_i] [facility] ([facility]) Body height 68.4 [in_i] 68.4 [in_i] [facility] ([facility]) Body height 68.4 [in_i] 68.4 [in_i] [facility] ([facility]) Body height 68.4 [in_i] 68.4 [in_i] CASH ([facility]) Body height 68.4 [in_i] 68.4 [in_i] CASH ([facility]) Diastolic blood pressure 85 mm[Hg] 85 mm[Hg] CASH ([facility]) Body height 68.4 [in_i] 68.4 [in_i] CASH ([facility]) Systolic blood pressure 134 mm[Hg] 134 mm[Hg] A THENA ([facility]) Diastolic blood pressure 85 mm[Hg] 85 mm[Hg] CASH ([facility]) Body height 68.4 [in_i] 68.4 [in_i] CASH ([facility]) Systolic blood pressure 134 mm[Hg] 134 mm[Hg] A THENA ([facility]) Diastolic blood pressure 85 mm[Hg] 85 mm[Hg] CASH ([facility]) Body height 68.4 [in_i] 68.4 [in_i] CASH ([facility]) Systolic blood pressure 134 mm[Hg] 134 mm[Hg] A THENA ([facility]) Diastolic blood pressure 85 mm[Hg] 85 mm[Hg] CASH ([facility]) Body height 68.4 [in_i] 68.4 [in_i] CASH ([facility]) Systolic blood pressure 134 mm[Hg] 134 mm[Hg] A THENA ([facility]) Diastolic blood pressure 85 mm[Hg] 85 mm[Hg] CASH ([facility]) Body height 68.4 [in_i] 68.4 [in_i] CASH ([facility]) Systolic blood pressure 134 mm[Hg] 134 mm[Hg] A THENA ([facility]) Diastolic blood pressure 85 mm[Hg] 85 mm[Hg] CASH ([facility]) Body height 68.4 [in_i] 68.4 [in_i] CASH ([facility]) Systolic blood pressure 134 mm[Hg] 134 mm[Hg] A THENA ([facility]) Diastolic blood pressure 85 mm[Hg] 85 mm[Hg] CASH ([facility]) Body height 68.4 [in_i] 68.4 [in_i] CASH ([facility]) Systolic blood pressure 134 mm[Hg] 134 mm[Hg] A THENA ([facility]) Body height 68.4 [in_i] 68.4 [in_i] CASH ([facility]) Body height 68.4 [in_i] 68.4 [in_i] CASH ([facility]) Body height 68.4 [in_i] 68.4 [in_i] CASH ([facility]) Body height 68.4 [in_i] 68.4 [in_i] CASH ([facility]) Body height 68.4 [in_i] 68.4 [in_i] CASH ([facility]) Body height 68.4 [in_i] 68.4 [in_i] CASH ([facility]) Body height 68.4 [in_i] 68.4 [in_i] CASH ([facility]) Body height 68.4 [in_i] 68.4 [in_i] CASH ([facility]) Body height 68.4 [in_i] 68.4 [in_i] CASH ([facility]) Body height 68.4 [in_i] 68.4 [in_i] CASH ([facility]) Body height 68.4 [in_i] 68.4 [in_i] CASH ([facility]) Body height 68.4 [in_i] 68.4 [in_i] CASH ([facility]) Body height 68.4 [in_i] 68.4 [in_i] CASH ([facility]) Body height 68.4 [in_i] 68.4 [in_i] CASH ([facility]) Body height 68.4 [in_i] 68.4 [in_i] CASH ([facility]) Body height 68.4 [in_i] 68.4 [in_i] CASH ([facility]) Body height 68.4 [in_i] 68.4 [in_i] CASH ([facility]) Body height 68.4 [in_i] 68.4 [in_i] [facility] ([facility]) Patient Treatment Plan of Care Planned Activity Planned Date Details Description Data Source (s) atorvastatin 10 MG Oral Tablet 07/16/2020 12:00:00 AM EDT CASH ([facility]) atorvastatin 10 MG Oral Tablet 07/16/2020 12:00:00 AM EDT CASH ([facility]) atorvastatin 10 MG Oral Tablet 07/16/2020 12:00:00 AM EDT CASH ([facility]) atorvastatin 10 MG Oral Tablet 07/16/2020 12:00:00 AM EDT CASH ([facility]) atorvastatin 10 MG Oral Tablet 07/16/2020 12:00:00 AM EDT CASH ([facility]) cetirizine hydrochloride 10 MG Oral Tablet 05/19/2020 12:00:00 AM E DT CASH ([facility]) cetirizine hydrochloride 10 MG Oral Tablet 05/19/2020 12:00:00 AM E DT CASH ([facility]) cetirizine hydrochloride 10 MG Oral Tablet 05/19/2020 12:00:00 AM E DT CASH ([facility]) cetirizine hydrochloride 10 MG Oral Tablet 05/19/2020 12:00:00 AM E DT CASH ([facility]) Prednisone 10 MG Oral Tablet CASH ([facility]) Oseltamivir 75 MG Oral Capsule CASH ([facility]) Levothyroxine Sodium 0.05 MG Oral Capsule CASH ([facility]) Gemfibrozil 600 MG Oral Tablet CASH ([facility]) Folic Acid 1 MG Oral Tablet CASH ([facility]) Breo Ellipta One INH once daily. CASH ([facility]) Azithromycin 250 MG Oral Tablet CASH ([facility]) Amoxicillin 875 MG Oral Tablet CASH ([facility]) vitamin d3 50 mcg (2000 ut) caps CASH ([facility]) Prednisone 10 MG Oral Tablet CASH ([facility]) Oseltamivir 75 MG Oral Capsule CASH ([facility]) Levothyroxine Sodium 0.05 MG Oral Capsule CASH ([facility]) Folic Acid 1 MG Oral Tablet CASH ([facility]) Breo Ellipta One INH once daily. CASH ([facility]) Azithromycin 250 MG Oral Tablet CASH ([facility]) Amoxicillin 875 MG Oral Tablet CASH ([facility]) Prednisone 10 MG Oral Tablet CASH ([facility]) Oseltamivir 75 MG Oral Capsule CASH ([facility]) Folic Acid 1 MG Oral Tablet CASH ([facility]) Breo Ellipta One INH once daily. CASH ([facility]) Azithromycin 250 MG Oral Tablet CASH ([facility]) albuterol sulfate HFA 90 mcg/actuation aerosol inhaler CASH ([facility]) Prednisone 10 MG Oral Tablet CASH ([facility]) Oseltamivir 75 MG Oral Capsule CASH ([facility]) Folic Acid 1 MG Oral Tablet CASH ([facility]) Breo Ellipta One INH once daily. CASH ([facility]) Azithromycin 250 MG Oral Tablet CASH ([facility]) albuterol sulfate HFA 90 mcg/actuation aerosol inhaler CASH ([facility]) Prednisone 10 MG Oral Tablet CASH ([facility]) Breo Ellipta One INH once daily. CASH ([facility]) Azithromycin 250 MG Oral Tablet CASH ([facility]) albuterol sulfate HFA 90 mcg/actuation aerosol inhaler CASH ([facility]) Prednisone 10 MG Oral Tablet CASH ([facility]) Breo Ellipta One INH once daily. CASH ([facility]) Azithromycin 250 MG Oral Tablet CASH ([facility]) albuterol sulfate HFA 90 mcg/actuation aerosol inhaler CASH ([facility]) Prednisone 10 MG Oral Tablet CASH ([facility]) Breo Ellipta One INH once daily. CASH ([facility]) Azithromycin 250 MG Oral Tablet CASH ([facility]) albuterol sulfate HFA 90 mcg/actuation aerosol inhaler CASH ([facility]) Prednisone 10 MG Oral Tablet CASH ([facility]) Breo Ellipta One INH once daily. CASH ([facility]) Azithromycin 250 MG Oral Tablet CASH ([facility]) albuterol sulfate HFA 90 mcg/actuation aerosol inhaler CASH ([facility]) Breo Ellipta One INH once daily. CASH ([facility]) Azithromycin 250 MG Oral Tablet CASH ([facility]) Breo Ellipta One INH once daily. CASH ([facility]) Azithromycin 250 MG Oral Tablet CASH ([facility])
--- NOTE | 2020-12-20 14:38 | ROOR ---
Patient Name: Ten Crawford Procedure Date: 12/20/2020 1:57 PM Date of : 1980 Age: 40 Room: [facility] Gender: Male Note Status: Finalized Procedure: Upper GI endoscopy Indications: Epigastric abdominal pain, Heartburn, Nausea with vomiting Providers: Evaristo Vogel MD Referring MD: KHAI Alexander Requesting Provider: Medicines: Monitored Anesthesia Care Complications: No immediate complications. Procedure: Pre-Anesthesia Assessment: - Prior to the procedure, a History and Physical was performed, and patient medications and allergies were reviewed. The patient is competent. The risks and benefits of the procedure and the sedation options and risks were discussed with the patient. All questions were answered and informed consent was obtained. Patient identification and proposed procedure were verified by the physician, the nurse and the anesthesiologist in the procedure room. Mental Status Examination: alert and oriented. Airway Examination: normal oropharyngeal airway and neck mobility. Respiratory Examination: clear to auscultation. CV Examination: normal. Prophylactic Antibiotics: The patient does not require prophylactic antibiotics. Prior Anticoagulants: The patient has taken no previous anticoagulant or antiplatelet agents. ASA Grade Assessment: II - A patient with mild systemic disease. After reviewing the risks and benefits, the patient was deemed in satisfactory condition to undergo the procedure. The anesthesia plan was to use monitored anesthesia care (MAC). Immediately prior to administration of medications, the patient was re-assessed for adequacy to receive sedatives. The heart rate, respiratory rate, oxygen saturations, blood pressure, adequacy of pulmonary ventilation, and response to care were monitored throughout the procedure. The physical status of the patient was re-assessed after the procedure. The Endoscope was introduced through the mouth, and advanced to the second part of duodenum. The upper GI endoscopy was accomplished without difficulty. The patient tolerated the procedure well. Findings: The examined esophagus was normal. The Z-line was regular and was found 40 cm from the incisors. Scattered moderate inflammation characterized by congestion (edema), erythema and granularity was found in the gastric antrum. Biopsies were taken with a cold forceps for Helicobacter pylori testing. Verification of patient identification for the specimen was done by the physician and nurse using the patient's name, date and medical record number. Estimated blood loss was minimal. The duodenal bulb, second portion of the duodenum and third portion of the duodenum were normal. Biopsies for histology were taken with a cold forceps for evaluation of celiac disease. Impression: - Normal esophagus. - Z-line regular, 40 cm from the incisors. - Gastritis. Biopsied. - Normal duodenal bulb, second portion of the duodenum and third portion of the duodenum. Biopsied. Recommendation: - Patient has a contact number available for emergencies. The signs and symptoms of potential delayed complications were discussed with the patient. Return to normal activities tomorrow. Written discharge instructions were provided to the patient. - High fiber diet. - Continue present medications. - Await pathology results. - Follow an antireflux regimen. - Telephone GI clinic for pathology results in 2 weeks. - Return to GI clinic if persistent symptoms or new symptoms. - Return to primary care physician. Procedure Code(s): --- Professional --- 52074, Esophagogastroduodenoscopy, flexible, transoral; with biopsy, single or multiple Diagnosis Code(s): --- Professional --- K29.70, Gastritis, unspecified, without bleeding R10.13, Epigastric pain R12, Heartburn R11.2, Nausea with vomiting, unspecified CPT copyright 2019 [employer]. All rights reserved. The codes documented in this report are preliminary and upon office nurse practitioner review may be revised to meet current compliance requirements. Evaristo Vogel MD Evaristo Vogel MD 12/20/2020 2:37:53 PM Electronically signed by Evaristo Vogel MD Number of Addenda: 0 Note Initiated On: 12/20/2020 1:57 PM Estimated Blood Loss: Estimated blood loss was minimal.
[2020-12-20 14:40] VITALS: BP 129/75
== END 2020-12-20 14:46 | disposition home or self-care (01) ==
LOC: M OPP 12:54
PROVIDERS: ATTEND Internal Medicine Gastroenterology
DX: K29.70 Gastritis, unspecified, without bleeding (principal); R11.2 Nausea with vomiting, unspecified; R10.13 Epigastric pain; E03.9 Hypothyroidism, unspecified; I25.2 Old myocardial infarction; G47.30 Sleep apnea, unspecified; Z79.899 Other long term (current) drug therapy; Z88.8 Allergy status to other drugs, medicaments and biological substances; Z80.3 Family history of malignant neoplasm of breast
CPT/HCPCS: 43239; 88305; J3010

== ENCOUNTER → 2021-12-06 | Outpatient (REF) | payer OTHER ==
[~2021-12-06] MED LIST changes: -D31000TA2 PO; -LIDOCAINE 2% 100MG/5ML SDV (FOR ANES.) As Ordered ONE; -NS 1,000 ML IV ONE; -OMEP-221; +OMEP40CA5; +VITA100093 PO; -fentaNYL 100 MCG/2 ML INJECTION (J3010) As Ordered ONE; -propofoL 200 MG/20 ML VIAL As Ordered ONE
[2021-12-06 18:46] LABS: ALBUMIN 3.8 GM/DL (3.2-5.2); ALT/SGPT 31 U/L (12-78); BILIRUBIN,TOTAL 0.4 MG/DL (0.2-1.0); BLOOD UREA NITROGEN 12 MG/DL (7-18); CALCIUM LEVEL 9.1 MG/DL (8.5-10.1); CARBON DIOXIDE LEVEL 30 MEQ/L (21-32); CHLORIDE LEVEL 103 MEQ/L (98-107); CHOLESTEROL LEVEL 163 MG/DL (<200); CHOLESTEROL RISK RATIO 3.622 (<5); GLOMERULAR FILTRATION RATE > 60.0 (>60); GLUCOSE, FASTING 95 MG/DL (70-100); HDL CHOLESTEROL 45 MG/DL (>40); LDL CHOLESTEROL 96 MG/DL (<100); NON-HDL-C 118 MG/DL; POTASSIUM SERUM 4.5 MEQ/L (3.5-5.1); SODIUM LEVEL 139 MEQ/L (136-145); TOTAL PROTEIN 7.7 GM/DL (6.4-8.2); TRIGLYCERIDES LEVEL 111 MG/DL (<150)
[2021-12-06 19:13] LABS: TOTAL 25(OH) VITAMIN D 31.2 NG/ML (30.0-100.0)
== END ==
LOC: M LAB REF 16:19
PROVIDERS: ATTEND Physician Assistant
DX: E78.5 Hyperlipidemia, unspecified (principal); E55.9 Vitamin D deficiency, unspecified; E03.9 Hypothyroidism, unspecified

== ENCOUNTER → 2022-05-19 | Outpatient (REF) | payer OTHER | LOC: M LAB REF 11:17 | PROVIDERS: ATTEND Physician Assistant | DX: J02.9 Acute pharyngitis, unspecified (principal) ==

== ENCOUNTER → 2022-07-21 | Outpatient (REF) | payer OTHER ==
[2022-07-21 17:01] LABS: ALBUMIN 3.8 G/DL (3.2-5.2); ALKALINE PHOSPHATASE 106 U/L (46-116); ALT/SGPT 24 U/L (7.0-40); AST/SGOT 9 U/L (<34); BILIRUBIN,TOTAL 0.4 MG/DL (0.3-1.2); BLOOD UREA NITROGEN 14 MG/DL (9-23); CALCIUM LEVEL 9.1 MG/DL (8.5-10.1); CARBON DIOXIDE LEVEL 29 MMOL/L (20-31); CHLORIDE LEVEL 105 MMOL/L (98-107); CHOLESTEROL LEVEL 182 MG/DL (<200); CHOLESTEROL RISK RATIO 4.49 (<5); GLOMERULAR FILTRATION RATE > 60.0 (>60); GLUCOSE, FASTING 101 MG/DL (60-100); HDL CHOLESTEROL 40.5 MG/DL (>40); LDL CHOLESTEROL 121.3 MG/DL (<100); NON-HDL-C 141.5 MG/DL; POTASSIUM SERUM 5.3 MMOL/L (3.5-5.1); SODIUM LEVEL 140 MMOL/L (136-145); TOTAL PROTEIN 7.1 G/DL (5.7-8.2); TRIGLYCERIDES LEVEL 101 MG/DL (<150)
[2022-07-21 17:03] LABS: TOTAL 25(OH) VITAMIN D 25.3 NG/ML (20.0-100.0)
== END ==
LOC: M LAB REF 16:11
PROVIDERS: ATTEND Physician Assistant
DX: E55.9 Vitamin D deficiency, unspecified (principal); E03.9 Hypothyroidism, unspecified; E78.5 Hyperlipidemia, unspecified; K21.00 Gastro-esophageal reflux disease with esophagitis, without bleeding

== ENCOUNTER → 2022-07-28 | Outpatient (CLI) | payer OTHER | LOC: M RAD 11:36 | PROVIDERS: ATTEND Physician Assistant | DX: I73.9 Peripheral vascular disease, unspecified (principal) ==

== ENCOUNTER → 2022-08-24 | Outpatient (REF) | payer OTHER ==
[2022-08-24 17:06] LABS: BLOOD UREA NITROGEN 15 MG/DL (9-23); CALCIUM LEVEL 8.8 MG/DL (8.5-10.1); CARBON DIOXIDE LEVEL 29 MMOL/L (20-31); CHLORIDE LEVEL 103 MMOL/L (98-107); CREATININE FOR GFR 0.86 MG/DL (0.70-1.30); GLOMERULAR FILTRATION RATE > 60.0 (>60); GLUCOSE, FASTING 96 MG/DL (60-100); SODIUM LEVEL 138 MMOL/L (136-145)
== END ==
LOC: M LAB REF 16:34
PROVIDERS: ATTEND Physician Assistant
DX: K21.00 Gastro-esophageal reflux disease with esophagitis, without bleeding (principal)

== ENCOUNTER 2022-11-06 10:12 | Day surgery (SDC) | payer OTHER ==
[~2022-11-06] VITALS: Ht 170.2 cm; Wt 117.5 kg
[~2022-11-06 10:12] MED LIST changes: +DICY-61 PO; -DICY10CA13 PO; +MECL-209 PO; -MECL1TAB31 PO; +NS 1,000 ML IV ONE; +VENTAER INH
[2022-11-06] MEDS ORDERED: propofoL 200 MG/20 ML VIAL As Ordered ONE (11:02)
[2022-11-06] MEDS ORDERED: LIDOCAINE 2% 100MG/5ML SDV (FOR ANES.) As Ordered ONE (11:02)
[2022-11-06] MEDS ORDERED: fentaNYL 100 MCG/2 ML INJECTION As Ordered ONE (11:50)
[2022-11-06 12:54] VITALS: TEMP 96.8
[2022-11-06 13:08] VITALS: BP 137/77; O2SAT 97
== END 2022-11-06 13:08 | disposition home or self-care (01) ==
LOC: M OPP 10:12
PROVIDERS: ATTEND Internal Medicine Gastroenterology
DX: D12.6 Benign neoplasm of colon, unspecified (principal); K64.4 Residual hemorrhoidal skin tags; K64.8 Other hemorrhoids; K92.1 Melena; K29.70 Gastritis, unspecified, without bleeding; G47.33 Obstructive sleep apnea (adult) (pediatric); Z79.51 Long term (current) use of inhaled steroids; Z79.890 Hormone replacement therapy
CPT/HCPCS: 43239; 45385; 88305; J3010

== ENCOUNTER → 2023-04-27 | Outpatient (REF) | payer OTHER, MEDICARE ==
[~2023-04-27] MED LIST changes: -NS 1,000 ML IV ONE
== END ==
LOC: M SFHCDERM 18:09
PROVIDERS: ATTEND Nurse Practitioner Family
DX: D49.2 Neoplasm of unspecified behavior of bone, soft tissue, and skin (principal)

== ENCOUNTER → 2023-07-06 | Outpatient (REF) | payer OTHER, MEDICARE ==
[2023-07-06 17:03] LABS: HEMATOCRIT 42.9 % (42.0-52.0); HEMOGLOBIN 14.2 g/dl (13.5-17.5); MEAN CORPUSCULAR HEMOGLOBIN 31.9 pg (27.0-33.0); MEAN CORPUSCULAR HGB CONC 33.1 g/dl (32.0-36.5); MEAN CORPUSCULAR VOLUME 96.4 fl (80.0-96.0); PLATELET COUNT, AUTOMATED 363 10^3/uL (150-450); RED BLOOD COUNT 4.45 10^6/uL (4.30-6.10); WHITE BLOOD COUNT 7.8 10^3/uL (4.0-10.0)
[2023-07-06 17:36] LABS: ALBUMIN 3.7 G/DL (3.2-5.2); ALKALINE PHOSPHATASE 103 U/L (46-116); ALT/SGPT 33 U/L (7.0-40); AST/SGOT 10 U/L (<34); BILIRUBIN,TOTAL 0.4 MG/DL (0.3-1.2); BLOOD UREA NITROGEN 13 MG/DL (9-23); CALCIUM LEVEL 9.1 MG/DL (8.5-10.1); CARBON DIOXIDE LEVEL 27 MMOL/L (20-31); CHLORIDE LEVEL 107 MMOL/L (98-107); CHOLESTEROL LEVEL 187 MG/DL (<200); CREATININE FOR GFR 0.92 MG/DL (0.70-1.30); GLOMERULAR FILTRATION RATE > 60.0 (>60); GLUCOSE, FASTING 92 MG/DL (60-100); HDL CHOLESTEROL 41.5 MG/DL (>40); LDL CHOLESTEROL 128.1 MG/DL (<100); NON-HDL-C 145.5 MG/DL; POTASSIUM SERUM 4.5 MMOL/L (3.5-5.1); SODIUM LEVEL 140 MMOL/L (136-145); TOTAL PROTEIN 7.1 G/DL (5.7-8.2); TRIGLYCERIDES LEVEL 87 MG/DL (<150)
[2023-07-06 17:37] LABS: THYROID STIMULATING HORMONE 1.769 uIU/ML (0.55-4.78)
[2023-07-06 17:38] LABS: TOTAL 25(OH) VITAMIN D 23.8 NG/ML (20.0-100.0)
== END ==
LOC: M LAB REF 16:34
PROVIDERS: ATTEND Physician Assistant
DX: E78.5 Hyperlipidemia, unspecified (principal); E55.9 Vitamin D deficiency, unspecified; G47.33 Obstructive sleep apnea (adult) (pediatric)

== ENCOUNTER → 2023-09-04 | Outpatient (REF) | payer OTHER, MEDICARE ==
[2023-09-04 14:36] LABS: BASO # 0.1 10^3/uL (0.0-0.2); BASO % 0.6 % (0.0-1.0); EOS # 0.5 10^3/uL (0.0-0.5); EOS % 6.8 % (0.0-3.0); HEMATOCRIT 44.2 % (42.0-52.0); HEMOGLOBIN 14.1 g/dl (13.5-17.5); LYMPH # 2.1 10^3/uL (1.5-5.0); LYMPH % 27.3 % (24.0-44.0); MEAN CORPUSCULAR HEMOGLOBIN 30.9 pg (27.0-33.0); MEAN CORPUSCULAR HGB CONC 31.9 g/dl (32.0-36.5); MEAN CORPUSCULAR VOLUME 96.9 fl (80.0-96.0); MONO # 0.7 10^3/uL (0.0-0.8); MONO % 8.3 % (2.0-8.0); NEUTROPHILS # 4.5 10^3/uL (1.5-8.5); NEUTROPHILS % 56.7 % (36.0-66.0); PLATELET COUNT, AUTOMATED 349 10^3/uL (150-450); RED BLOOD COUNT 4.56 10^6/uL (4.30-6.10); WHITE BLOOD COUNT 7.8 10^3/uL (4.0-10.0)
[2023-09-04 14:41] LABS: ERYTHROCYTE SEDIMENTATION RATE 46 mm/hr (0-15)
[2023-09-04 14:43] LABS: ALBUMIN 3.7 G/DL (3.2-5.2); ALKALINE PHOSPHATASE 102 U/L (46-116); ALT/SGPT 31 U/L (7.0-40); AST/SGOT 9 U/L (<34); BILIRUBIN,DIRECT 0.1 MG/DL (<0.4); BILIRUBIN,TOTAL 0.5 MG/DL (0.3-1.2); BLOOD UREA NITROGEN 15 MG/DL (9-23); CALCIUM LEVEL 9.1 MG/DL (8.5-10.1); CARBON DIOXIDE LEVEL 29 MMOL/L (20-31); CHLORIDE LEVEL 104 MMOL/L (98-107); CHOLESTEROL LEVEL 175 MG/DL (<200); CHOLESTEROL RISK RATIO 4.71 (<5); CREATININE FOR GFR 0.88 MG/DL (0.70-1.30); GLOMERULAR FILTRATION RATE > 60.0 (>60); GLUCOSE, FASTING 102 MG/DL (60-100); HDL CHOLESTEROL 37.1 MG/DL (>40); LDL CHOLESTEROL 113.9 MG/DL (<100); MAGNESIUM LEVEL 2.1 MG/DL (1.8-2.4); NON-HDL-C 137.9 MG/DL; POTASSIUM SERUM 4.3 MMOL/L (3.5-5.1); SODIUM LEVEL 139 MMOL/L (136-145); TOTAL PROTEIN 7.1 G/DL (5.7-8.2); TRIGLYCERIDES LEVEL 120 MG/DL (<150)
== END ==
LOC: M LAB REF 13:35
PROVIDERS: ATTEND Nurse Practitioner Family
DX: G44.029 Chronic cluster headache, not intractable (principal); E78.5 Hyperlipidemia, unspecified

== ENCOUNTER → 2023-12-17 | Outpatient (CLI) | payer OTHER | LOC: M RAD 16:29 | PROVIDERS: ATTEND Physician Assistant | DX: R07.89 Other chest pain (principal); W19.XXXA Unspecified fall, initial encounter ==

== ENCOUNTER 2023-12-25 08:29 | Emergency (ER) | payer OTHER ==
[~2023-12-25] VITALS: Ht 170.2 cm; Wt 123.1 kg
[~2023-12-25 08:29] MED LIST changes: -TIZA10TA
[2023-12-25 08:39] VITALS: BP 122/79; TEMP 98; O2SAT 98
[2023-12-25] MEDS ORDERED: TIZA10TA (08:44)
== END 2023-12-25 11:59 | disposition left against medical advice (07) ==
LOC: M ED 08:29
DX: Z53.21 Procedure and treatment not carried out due to patient leaving prior to being seen by health care provider (principal)

== ENCOUNTER → 2023-12-25 | Outpatient (CLI) | payer OTHER ==
[~2023-12-25] MED LIST changes: +TIZA10TA
== END ==
LOC: M WUC 12:51
PROVIDERS: ATTEND Physician Assistant
DX: M54.50 Low back pain, unspecified (principal); M54.6 Pain in thoracic spine

== ENCOUNTER → 2023-12-31 | Outpatient (CLI) | payer OTHER, MEDICARE ==
[~2023-12-31] MED LIST changes: +TIZA10TA
== END ==
LOC: M RAD 12:35
PROVIDERS: ATTEND Physician Assistant
DX: R51.9 Headache, unspecified (principal)

== ENCOUNTER → 2024-01-14 | Outpatient (REF) | payer OTHER ==
[2024-01-14 19:23] LABS: ALBUMIN 3.6 G/DL (3.2-5.2); ALKALINE PHOSPHATASE 113 U/L (40-129); ALT/SGPT 45 U/L (7.0-40); AST/SGOT 23 U/L (<34); BILIRUBIN,TOTAL 0.4 MG/DL (0.3-1.2); BLOOD UREA NITROGEN 13 MG/DL (9-23); CALCIUM LEVEL 9.1 MG/DL (8.5-10.1); CARBON DIOXIDE LEVEL 28 MMOL/L (20-31); CHLORIDE LEVEL 107 MMOL/L (98-107); CHOLESTEROL LEVEL 226 MG/DL (<200); CHOLESTEROL RISK RATIO 4.81 (<5); CREATININE FOR GFR 0.87 MG/DL (0.70-1.30); GLOMERULAR FILTRATION RATE > 60.0 (>60); GLUCOSE, FASTING 106 MG/DL (60-100); HDL CHOLESTEROL 46.9 MG/DL (>40); LDL CHOLESTEROL 154.5 MG/DL (<100); NON-HDL-C 179.1 MG/DL; POTASSIUM SERUM 4.1 MMOL/L (3.5-5.1); SODIUM LEVEL 141 MMOL/L (136-145); TOTAL PROTEIN 7.3 G/DL (5.7-8.2); TRIGLYCERIDES LEVEL 123 MG/DL (<150)
[2024-01-14 19:37] LABS: HEMOGLOBIN A1c 4.9 % (4.0-6.0)
== END ==
LOC: M LAB REF 16:42
PROVIDERS: ATTEND Physician Assistant
DX: E78.5 Hyperlipidemia, unspecified (principal); R73.01 Impaired fasting glucose

== ENCOUNTER → 2024-02-05 | Outpatient (CLI) | payer OTHER ==
[2024-02-05 09:30] LABS: HEMATOCRIT 44.3 % (42.0-52.0); HEMOGLOBIN 14.4 g/dl (13.5-17.5); MEAN CORPUSCULAR HEMOGLOBIN 30.6 pg (27.0-33.0); MEAN CORPUSCULAR HGB CONC 32.5 g/dl (32.0-36.5); MEAN CORPUSCULAR VOLUME 94.1 fl (80.0-96.0); PLATELET COUNT, AUTOMATED 362 10^3/uL (150-450); RED BLOOD COUNT 4.71 10^6/uL (4.30-6.10); WHITE BLOOD COUNT 6.6 10^3/uL (4.0-10.0)
[2024-02-05 09:56] LABS: ALBUMIN 3.7 G/DL (3.2-5.2); ALKALINE PHOSPHATASE 108 U/L (40-129); ALT/SGPT 30 U/L (7.0-40); AST/SGOT 13 U/L (<34); BILIRUBIN,TOTAL 0.5 MG/DL (0.3-1.2); BLOOD UREA NITROGEN 14 MG/DL (9-23); CALCIUM LEVEL 9.6 MG/DL (8.5-10.1); CARBON DIOXIDE LEVEL 31 MMOL/L (20-31); CHLORIDE LEVEL 104 MMOL/L (98-107); GLOMERULAR FILTRATION RATE > 60.0 (>60); GLUCOSE, FASTING 92 MG/DL (60-100); POTASSIUM SERUM 4.3 MMOL/L (3.5-5.1); SODIUM LEVEL 140 MMOL/L (136-145); TOTAL PROTEIN 7.6 G/DL (5.7-8.2)
[2024-02-05 09:58] LABS: THYROID STIMULATING HORMONE 2.924 uIU/ML (0.55-4.78)
== END ==
LOC: M RAD 08:07
PROVIDERS: ATTEND Physician Assistant
DX: M25.511 Pain in right shoulder (principal); R42 Dizziness and giddiness

== ENCOUNTER → 2024-03-04 | Outpatient (REF) | payer OTHER | LOC: M LAB REF 14:32 | PROVIDERS: ATTEND Physician Assistant | DX: Z86.19 Personal history of other infectious and parasitic diseases (principal) ==

== ENCOUNTER → 2024-09-25 | Outpatient (CLI) | payer OTHER ==
[2024-09-25 12:58] LABS: PLATELET COUNT, AUTOMATED 315 10^3/uL (150-450)
[2024-09-25 13:18] LABS: ESTIMATED AVERAGE GLUCOSE 97.0 MG/DL (60-110)
[2024-09-25 14:04] LABS: ALT/SGPT 23 U/L (7.0-40); AST/SGOT 15 U/L (<34); CALCIUM LEVEL 8.7 MG/DL (8.5-10.1); CARBON DIOXIDE LEVEL 28 MMOL/L (20-31); CHLORIDE LEVEL 103 MMOL/L (98-107); CHOLESTEROL LEVEL 189 MG/DL (<200); CHOLESTEROL RISK RATIO 4.11 (<5); CREATININE FOR GFR 0.96 MG/DL (0.70-1.30); FREE T4 1.26 NG/DL (0.89-1.76); GLOMERULAR FILTRATION RATE > 90.0 (>60); LDL CHOLESTEROL 120.1 MG/DL (<100); NON-HDL-C 143.1 MG/DL; POTASSIUM SERUM 4.2 MMOL/L (3.5-5.1); SODIUM LEVEL 141 MMOL/L (136-145); TOTAL 25(OH) VITAMIN D 36.4 NG/ML (20.0-100.0); TRIGLYCERIDES LEVEL 115 MG/DL (<150)
== END ==
LOC: M LAB 12:12
PROVIDERS: ATTEND Physician Assistant
DX: E03.9 Hypothyroidism, unspecified (principal); E78.5 Hyperlipidemia, unspecified; E55.9 Vitamin D deficiency, unspecified; R73.01 Impaired fasting glucose